=== PATIENT | female | born 1945 | race Two or more races ===

== ENCOUNTER 2016-07-08 16:38 | Inpatient (IN) | payer MEDICARE ==
[2016-07-08] MEDS ORDERED: methylPREDNISolone SOD SUCC* 125 MG 2 ML VIAL IV ONE (17:03)
[2016-07-08] MEDS ORDERED: Cefepime(*) 1 GM in NS 0.9% 50 ML* 50 ML IVPB ONE (17:09)
[2016-07-08] MEDS ORDERED: Vancomycin(*) 1,000 MG in NS 0.9% 250 ML* 250 ML IVPB ONE (17:09)
[2016-07-08] MEDS: Albuterol/Ipratropium NEB.SOL* Albuterol 2.5 MG/Ipratropium 0.5 MG 3 ML INH SCH ×2 (17:44→17:45)
--- NOTE | 2016-07-08 17:49 | RAD ---
INDICATION: Short of breath COMPARISON: [id number] TECHNIQUE: PA and lateral dual-energy views were obtained. FINDINGS: Bones/Soft Tissues: There are no acute bony findings. Cardiomediastinal: The cardiomediastinal silhouette is normal. Lungs: There is hyperinflation with mild chronic interstitial change. There are no focal infiltrates. There is improved aeration of the right lung base. Pleura: There are no pleural effusions. Other: None IMPRESSION: HYPERINFLATION WITH MILD CHRONIC INTERSTITIAL CHANGE. NO ACUTE FINDINGS.
[2016-07-08 18:00] LABS: Hematocrit 36 % (35-47); Hemoglobin 11.7 g/dl (12.0-16.0); Mean Corpuscular HGB Conc 33 g/dl (31-36); Mean Corpuscular Hemoglobin 29 pg (27-31); Mean Corpuscular Volume 89 fL (80-97); Mean Platelet Volume 7 um3 (7.4-10.4); Red Blood Count 4.02 10^6/ul (4.0-5.4); Red Cell Distribution Width 13 % (10.5-15); White Blood Count 12.2 10^3/ul (3.5-10.8)
[2016-07-08 18:01] LABS: Add Diff/Slide Review? Slide Review Added; Comments Flag Yes
[2016-07-08] MEDS ORDERED: methylPREDNISolone SOD SUCC* 125 MG 2 ML VIAL ONE (18:04)
[2016-07-08 18:17] LABS: Albumin 3.8 g/dL (3.2-5.2); BUN/Creatinine Ratio 22.5 (8-20); C Reactive Protein 4.96 mg/L (< 5.00); Calcium 9.3 mg/dL (8.6-10.3); EGFR Non-African American 81.6 (>60); Globulin 3.7 g/dL (2-4); Total Bilirubin 0.3 mg/dL (0.2-1.0); Total Protein 7.5 g/dL (6.4-8.9)
--- NOTE | 2016-07-08 18:53 | ED ---
Urvashi Castellanos Alok, scribed for Maurisio Smith MD on 07/08/16 at 1707 . Respiratory - HPI Summary HPI Summary: 70 y/o female with PMHx of COPD presents to the ED with c/o wheezing and SOB for the last week. Pt reports she had seen her PCP 3 days ago and was feeling better yesterday but then worse again today prompting her visit to the ED. Pt also notes a dry cough along with nausea and took two tylonel HUNTING AND FISHING GUIDE. Pt denies any fever, chills, and vomiting. PMHx also includes arthritis. Pt denies Hx of CHF. No other pertinent PMHx at this time. - History of Current Complaint Chief Complaint: EDShortnessOfBreath Stated Complaint: SOB Time Seen by Provider: 07/08/16 17:00 Hx Obtained From: Patient Onset/Duration: Gradual Onset, Lasting Days, Still Present Initial Severity: Moderate Current Severity: Moderate Pain Intensity: 2 Character: Wheezing, Cough (Nonproductive) Aggravating Factor(s): Nothing Alleviating Factor(s): Nothing Associated Signs and Symptoms: SOB, Wheezing - Allergy/Home Medications Allergies/Adverse Reactions: Allergies Allergy/AdvReac Type Severity Reaction Status Date / Time No Known Allergies Allergy Verified 06/23/16 15:07 PMH/Surg Hx/FS Hx/Imm Hx Endocrine/Hematology History: Reports: Hx Diabetes Cardiovascular History: Reports: Hx Hypertension Respiratory History: Reports: Hx Asthma, Hx Chronic Obstructive Pulmonary Disease (COPD) History: Reports: Hx Renal Disease - resolved 2009 Denies: Hx Kidney Stones Musculoskeletal History: Reports: Hx Rheumatoid Arthritis - Cancer History Hx Chemotherapy: No - methotrexate Hx Radiation Therapy: No - Surgical History Surgery Procedure, Year, and Place: right ear 8 yrs ago Infectious Disease History: No Infectious Disease History: Denies: Traveled Outside the [place] in Last 30 Days - Family History Known Family History: Negative: Other - Hx Breast cancer - Social History Occupation: Retired Lives: With Family - Alcohol Use: None Substance Use Type: Reports: None Hx Tobacco Use: No Smoking Status (MU): Never Smoked Tobacco Review of Systems Negative: Fever, Chills Positive: Shortness Of Breath, Cough - Dry, Other - Wheezing All Other Systems Reviewed And Are Negative: Yes Physical Exam Triage Information Reviewed: Yes Vital Signs On Initial Exam: Initial Vitals Temp Pulse Resp BP Pulse Ox 98.4 F 95 20 162/78 94 07/08/16 16:39 07/08/16 16:39 07/08/16 16:39 07/08/16 16:39 07/08/16 16:39 Vital Signs Reviewed: Yes Appearance: Positive: Well-Appearing - Obese female, comfortable in strecher, No Pain Distress, Well-Nourished Skin: Positive: Warm, Skin Color Reflects Adequate Perfusion, Dry Head/Face: Positive: Normal Head/Face Inspection Eyes: Positive: Normal, EOMI, COLE[place] ENT: Positive: Normal ENT inspection Neck: Positive: Supple, Nontender Respiratory/Lung Sounds: Positive: Decreased Breath Sounds, Wheezes - Diffuse Cardiovascular: Positive: Normal, RRR Abdomen Description: Positive: Nontender, Soft, Other: - Obese abd Bowel Sounds: Positive: Present Musculoskeletal: Positive: Strength/ROM Intact, Edema Left - LLE, Edema Right - RLE Neurological: Positive: Normal, Sensory/Motor Intact, Alert, Oriented to Person Place, Time Psychiatric: Positive: Normal, Affect/Mood Appropriate Diagnostics - Vital Signs Vital Signs Temp Pulse Resp BP Pulse Ox 07/08/16 16:39 98.4 F 95 20 162/78 94 - Laboratory Lab Results: Lab Results 07/08/16 07/08/16 07/08/16 Range/Units 17:46 17:46 17:46 WBC 12.2 H (3.5-10.8) 10^3/ul RBC 4.02 (4.0-5.4) 10^6/ul Hgb 11.7 L (12.0-16.0) g/dl Hct 36 (35-47) % MCV 89 (80-97) fL MCH 29 (27-31) pg MCHC 33 (31-36) g/dl RDW 13 (10.5-15) % Plt Count 375 (150-450) 10^3/ul MPV 7 L (7.4-10.4) um3 Neut % (Auto) 85.4 H (38-83) % Lymph % (Auto) 11.1 L (25-47) % [place] % (Auto) 3.0 (1-9) % Eos % (Auto) 0.1 (0-6) % Baso % (Auto) 0.4 (0-2) % Absolute Neuts (auto) 10.4 H (1.5-7.7) 10^3/ul Absolute Lymphs (auto) 1.3 (1.0-4.8) 10^3/ul Absolute Monos (auto) 0.4 (0-0.8) 10^3/ul Absolute Eos (auto) 0 (0-0.6) 10^3/ul Absolute Basos (auto) 0.1 (0-0.2) 10^3/ul Absolute Nucleated RBC 0.01 10^3/ul Nucleated RBC % 0.1 Sodium 132 L (133-145) mmol/L Potassium Pending Chloride 97 L (101-111) mmol/L Carbon Dioxide 23 (22-32) mmol/L Anion Gap Pending BUN 16 (6-24) mg/dL Creatinine 0.71 (0.51-0.95) mg/dL Est GFR ( Amer) 105.0 (>60) Est GFR (Non-Af Amer) 81.6 (>60) BUN/Creatinine Ratio 22.5 H (8-20) Glucose 195 H (70-100) mg/dL Lactic Acid 2.9 H* (0.5-2.0) mmol/L Calcium 9.3 (8.6-10.3) mg/dL Total Bilirubin 0.30 (0.2-1.0) mg/dL AST Pending ALT 27 (7-52) U/L Alkaline Phosphatase 50 (34-104) U/L Total Creatine Kinase 176 (10-223) U/L CK-MB (CK-2) 8.4 H (0.6-6.3) ng/mL Troponin I Pending C-Reactive Protein 4.96 (< 5.00) mg/L Total Protein 7.5 (6.4-8.9) g/dL Albumin 3.8 (3.2-5.2) g/dL Globulin 3.7 (2-4) g/dL Albumin/Globulin Ratio 1.0 (1-3) Influenza A (Rapid) (Negative) Influenza B (Rapid) (Negative) 07/08/16 Range/Units 18:13 WBC (3.5-10.8) 10^3/ul RBC (4.0-5.4) 10^6/ul Hgb (12.0-16.0) g/dl Hct (35-47) % MCV (80-97) fL MCH (27-31) pg MCHC (31-36) g/dl RDW (10.5-15) % Plt Count (150-450) 10^3/ul MPV (7.4-10.4) um3 Neut % (Auto) (38-83) % Lymph % (Auto) (25-47) % [place] % (Auto) (1-9) % Eos % (Auto) (0-6) % Baso % (Auto) (0-2) % Absolute Neuts (auto) (1.5-7.7) 10^3/ul Absolute Lymphs (auto) (1.0-4.8) 10^3/ul Absolute Monos (auto) (0-0.8) 10^3/ul Absolute Eos (auto) (0-0.6) 10^3/ul Absolute Basos (auto) (0-0.2) 10^3/ul Absolute Nucleated RBC 10^3/ul Nucleated RBC % Sodium (133-145) mmol/L Potassium Chloride (101-111) mmol/L Carbon Dioxide (22-32) mmol/L Anion Gap BUN (6-24) mg/dL Creatinine (0.51-0.95) mg/dL Est GFR ( Amer) (>60) Est GFR (Non-Af Amer) (>60) BUN/Creatinine Ratio (8-20) Glucose (70-100) mg/dL Lactic Acid (0.5-2.0) mmol/L Calcium (8.6-10.3) mg/dL Total Bilirubin (0.2-1.0) mg/dL AST ALT (7-52) U/L Alkaline Phosphatase (34-104) U/L Total Creatine Kinase (10-223) U/L CK-MB (CK-2) (0.6-6.3) ng/mL Troponin I C-Reactive Protein (< 5.00) mg/L Total Protein (6.4-8.9) g/dL Albumin (3.2-5.2) g/dL Globulin (2-4) g/dL Albumin/Globulin Ratio (1-3) Influenza A (Rapid) Negative (Negative) Influenza B (Rapid) Negative (Negative) Result Diagrams: 07/08/16 17:46 07/08/16 17:46 Lab Statement: Any lab studies that have been ordered have been reviewed, and results considered in the medical decision making process. - Radiology CXR Xray Interpretation: Positive (See Comments) - IMPRESSION: HYPERINFLATION WITH MILD CHRONIC INTERSTITIAL CHANGE. NO ACUTE FINDINGS. Radiology Interpretation Completed By: Radiologist - EKG 1702 Cardiac Rate: NL EKG Rhythm: Sinus Rhythm - 90 bpm EKG Interpretation: No ST elevation Disposition - Course Course Of Treatment: 70 y/o female with PMHx of COPD presents to the ED with c/ o wheezing and SOB for the last week. Pt reports she had seen her PCP 3 days ago and was feeling better yesterday but then worse again today prompting her visit to the ED. Pt also notes a dry cough along with nausea and took two tylonel HUNTING AND FISHING GUIDE. Pt denies any fever, chills, and vomiting. PMHx also includes arthritis. Pt denies Hx of CHF. No other pertinent PMHx at this time. Assessment/Plan: Blood work showed WBC 12.2 without bands, sodium 132 L, Glucose 195 H, Lactic Acid 2.9 H, Creatine Kinase 176. Was given Solumedrol and Cefepime for wheezing. Pt was dx 3 days ago with PNA lower left side. Pt was given Levoquin by previous doctor which did not alleviate symptoms; in fact symptoms have become worse since. Will admit pt. Will Dx with PNA not responding to outpatient therapy, COPD exacerbation, Increase troponin r/o NSTEMI. I discuss my physical exam, findings and test results with Dr. Nascimento from the hospitalist services and she agrees to admit patient to his services. Patient is hemodynamically stable alert and oriented x 3. - Differential Dx - Cardiopulmonary Differential Diagnoses - Cardiopulmonary: Bronchitis, CAD, CHF - Diagnoses Provider Diagnoses: PNA (pneumonia), increase troponin r/o HI, COPD exacerbation - Physician Notifications Discussed Care Of Patient With: Dr Nascimento (hospitalist) - agreed to admit pt Discharge - Discharge Plan Condition: Stable Disposition: ADMITTED TO [facility] Referrals: Jennifer Canales MD [Primary Care Provider] - The documentation as recorded by the Urvashi wright Alok accurately reflects the service I personally performed and the decisions made by me, Maurisio Smith MD.
[2016-07-08 18:59] LABS: Potassium 4.6 mmol/L (3.5-5.0)
[2016-07-08 19:22] LABS: Troponin I 0.04 ng/mL (<0.04)
[2016-07-08] MEDS ORDERED: Dextrose 50% Syringe 50 ML* 25 GM/50 ML SYRINGE IV PUSH PRN (19:55)
[2016-07-08] MEDS ORDERED: NS 0.9% 1000 ML* 2,000 ML IV ONE (19:56)
[2016-07-08] MEDS ORDERED: NS 0.9% 1000 ML* 1,000 ML IV SCH (20:00)
[2016-07-08] MEDS ORDERED: Furosemide IV* 10 MG/ML 10 ML VIAL (100 MG) IV ONE (21:23)
[2016-07-08] MEDS: Heparin VIAL(*) 5000 UNITS/ML VIAL (FIVE THOUSAND) SUBCUT SCH (21:51)
[2016-07-08 23:00] LABS: Urine Bilirubin Negative (Negative); Urine Glucose Negative (Negative); Urine Nitrite Negative (Negative)
[2016-07-09] MEDS: Albuterol/Ipratropium NEB.SOL* Albuterol 2.5 MG/Ipratropium 0.5 MG 3 ML INH SCH ×7 (00:06→23:39)
[2016-07-09] MEDS: NS 0.9% 1000 ML* 1,000 ML IV SCH ×4 (00:21→12:34)
--- NOTE | 2016-07-09 00:27 | HP ---
HISTORY AND PHYSICAL: DATE OF ADMISSION: 07/08/16 PRIMARY CARE PHYSICIAN: Dr. Canales. ATTENDING PHYSICIAN: Dr. Marcus Clemente *(dictation provided by Radha Juarez NP) CHIEF COMPLAINT: Shortness of breath and cough. HISTORY OF PRESENT ILLNESS: Ms. Ramirez is a 70-year-old female with a past medical history of COPD, hypertension, and diabetes who presents to the hospital stay with concern for worsening shortness of breath and cough. Ms. Ramirez states that she first started feeling unwell on Tuesday night. At that time , she felt wheezy and had a cough. She felt worse on Tuesday and Tuesday and had a temperature up to 101.4. On Tuesday, she saw Dr. Canales, who prescribed Levaquin and prednisone. The patient felt better the next day but on Tuesday , she again was feeling worse and by today, she was feeling quite terrible. She states it was very hard for her to sleep last night. She reports that she could not lie flat, which is new for her. She has had a frequent nonproductive cough and she feels audibly wheezy. She went to see Dr. Canales again and the recommendation was for her to come to the emergency room for evaluation. Ms. Ramirez states that she has a history of COPD, but was never smoker. She has been on the prednisone in the past for exacerbations, though never has been hospitalized. She does have some nausea, but she thinks that was secondary to prednisone and states that she usually gets nauseous with this medication. She reports that her metformin was held over the past week or so due to an elevated creatinine up to 1.88. She also reports that she has not been taking her torsemide while feeling unwell. In the emergency room, Ms. Ramirez had an elevated lactic acid of 2.9. She only has a WBC at 12.2. Her vitals show no tachycardia with blood pressure stable at 176/77. She is afebrile. Chest x-ray actually is read as clear today and does look improved from previous. However, she is significantly wheezy and coughing and requiring 2 L nasal cannula. PAST MEDICAL HISTORY: 1. COPD. 2. Hypertension. 3. Type 2 diabetes, noninsulin dependent. MEDICATIONS: 1. Tylenol p.r.n. 2. Advair Diskus 500-50 one inhaled twice daily. 3. Albuterol p.r.n. 4. Amlodipine 5 mg p.o. daily. 5. Ammonium lactate as needed. 6. Clobetasol as needed. 7. Clotrimazole as needed. 8. Fexofenadine as needed. 9. Flonase as needed. 10. Fluocinonide 0.05%. 11. Metformin held for the past week. 12. Hydrocodone with acetaminophen 5/325 mg 1 to 2 tabs as needed. 13. Ketoconazole 2% apply thin film twice daily. 14. Levaquin 500 mg daily, prescribed on 07/05/16. 15. Losartan 100 mg daily. 16. MiraLAX 8 ounces daily. 17. Nystatin as needed. 18. Ondansetron p.r.n. nausea. 19. Orencia 750 mg IV q. month. 20. Prednisone via taper. 21. Tizanidine 2 mg 1 to 2 caps as needed for spasms. 22. Torsemide 15 mg daily, held for the last 4 days. 23. Tramadol 50 mg 1 to 2 tabs p.r.n. 24. Voltaren 1% as needed. ALLERGIES: No known drug allergies. FAMILY HISTORY: The patient reports her mother related to old age and her dad while in a coma. She knows no further details. SOCIAL HISTORY: No report of tobacco, alcohol or drug use. The patient lives with her , who is the healthcare proxy. REVIEW OF SYSTEMS: A 14-point review of systems was completed with Ms. Ramirez and all those not mentioned above were negative. PHYSICAL EXAMINATION GENERAL: Ms. Ramirez is sitting in the bed. She is in no acute distress. She is calm and cooperative with my examination. VITAL SIGNS: Temperature 98.4, heart rate 92, respiratory rate 17, O2 saturation 100% on room air, blood pressure 176/77. HEENT: Extraocular movements are intact. LUNGS: Have significant wheezing bilaterally, mostly expiratory. There are no rhonchi or crackles. There is no accessory muscle use. HEART: S1, S2. No murmur, rub, or gallop are regular. ABDOMEN: Soft, nontender with bowel sounds positive x4. EXTREMITIES: No cyanosis, 2 + edema. SKIN: Intact. NEURO: She is alert and oriented x3. She moves all extremities equally. There is no facial asymmetry or focal weakness. LABORATORY DATA: WBC 12.2, hemoglobin 11.7, hematocrit 36, platelet count 375. Sodium 132, potassium 4.6, chloride 97, serum bicarbonate 23, BUN 16, creatinine 0.71, glucose 195, lactic acid 2.9, troponin 0.04. CRP 4.96. Flu swab is negative. Chest x-ray shows resolution of right-sided infiltrate. IMPRESSION: Ms. Ramirez is a 70-year-old female with a past medical history of chronic obstructive pulmonary disease, hypertension, and diabetes who presents today to the hospital with worsening shortness of breath and cough despite treatment for pneumonia. Our plans are for inpatient admission as I expect her length of stay to be greater than 2 days for the followin. Chronic obstructive pulmonary disease exacerbation/pneumonia. The patient has ongoing shortness of breath and cough despite treatment outpatient with prednisone and Levaquin. Today, on examination, the patient is significantly wheezy, but does not have any rhonchi or crackles. Her chest x-ray does not show any clear concern for pneumonia. I suspect that pneumonia may have driven a chronic obstructive pulmonary disease exacerbation. Regardless, I think she deserves of course antibiotic coverage with ceftriaxone and azithromycin. She will have duo nebulizers q.4 hours while awake and as needed. She will have oxygen therapy per protocol. She will have Solu-Medrol 60 mg IV b.i.d. I also note that the patient has a normal CRP, normal flu swab and only a mild elevation in white blood cell count, all of which speaks against pneumonia and makes likelihood for chronic obstructive pulmonary disease exacerbation more likely. 2. Lactic acidosis. I suspect this is driven more by her respiratory status then sepsis. She has 2+ pitting edema and a systolic blood pressure 190 after receiving a bolus of approximately 500ml NS in the ED. Pt is on torsemide at home but has not been taking it recently. Plan for one time dose of lasix now and to re-evaluate closely. Repeat lactic acid. 3. ? Heart Failure. Patient has severe pitting edema and is on torsemide at home. Pt's last echo showed diastolic dysfunction only, plan to re-eval cardiac function with echo in AM. Check BNP. 4. Elevated troponins. I suspect this is secondary to demand ischemia and is very minimally elevated with no evidence of chest pain. Plan to repeat x1. 5. Type 2 diabetes. The patient has been holding metformin due to an elevated creatinine. Her creatinine is now normal. I plan to continue to hold metformin , but she will have blood glucoses q.a.c. with lispro sliding scale. 6. Hypertension. Plan to continue losartan as the patient's blood pressure is elevated in the emergency room to the 170s. Continue to hold torsemide as I think the patient is dehydrated. 7. DVT prophylaxis. With heparin subcu. 8. Disposition to medical floor. 9. Code status is full code. TIME SPENT: Approximately 75 minutes were spent on the admission of this patient, more than half the time spent with the patient at the bedside reviewing the events leading up to this hospitalization, performing the physical examination, and reviewing the plan of care. RADHA JUAREZ NP CC: Dr. Canales * [id number]/CPS #: [id number] RIANNA
[2016-07-09 03:36] LABS: Hematocrit 35 % (35-47); Hemoglobin 11.4 g/dl (12.0-16.0); Mean Corpuscular HGB Conc 33 g/dl (31-36); Mean Corpuscular Hemoglobin 29 pg (27-31); Mean Corpuscular Volume 88 fL (80-97); Mean Platelet Volume 7 um3 (7.4-10.4); Red Blood Count 3.98 10^6/ul (4.0-5.4); Red Cell Distribution Width 13 % (10.5-15); White Blood Count 12.2 10^3/ul (3.5-10.8)
[2016-07-09 03:37] LABS: Add Diff/Slide Review? Slide Review Added; Comments Flag Yes
[2016-07-09 03:47] LABS: BUN/Creatinine Ratio 19.7 (8-20); Calcium 8.3 mg/dL (8.6-10.3); EGFR Non-African American 81.6 (>60); Potassium 3.7 mmol/L (3.5-5.0)
[2016-07-09] MEDS: Heparin VIAL(*) 5000 UNITS/ML VIAL (FIVE THOUSAND) SUBCUT SCH ×3 (05:18→22:40)
[2016-07-09] MEDS: methylPREDNISolone SOD SUCC* 125 MG 2 ML VIAL IV SCH ×2 (05:18→17:14)
[2016-07-09 07:59] LABS: Troponin I 0.04 ng/mL (<0.04)
[2016-07-09] MEDS: traMADol TAB* 50 MG PO SCH (08:56)
[2016-07-09] MEDS: Losartan TAB* 25 MG PO SCH (08:57)
[2016-07-09] MEDS: Polyethylene Glycol 3350* 17 GM PACKET PO SCH (08:58)
[2016-07-09] MEDS: Insulin LISPRO* 1 UNITS UNIT SUBCUT SCH ×3 (08:58→17:13)
[2016-07-09] MEDS ORDERED: amLODIPine TAB* 5 MG PO SCH (09:00)
[2016-07-09] MEDS: Azithromycin IV(*) 500 MG in NS 0.9% 250 ML* 250 ML IVPB SCH (09:00)
[2016-07-09] MEDS: Mometasone/Formoter 200/5 MDI INH SCH (09:15)
[2016-07-09] MEDS: cefTRIAXone VIAL(*) 1,000 MG in NS 0.9% 50 ML* 50 ML IVPB SCH (11:01)
[2016-07-09] MEDS ORDERED: Furosemide IV* 10 MG/ML VIAL (40 MG) IV ONE (12:45)
--- NOTE | 2016-07-09 13:21 | PN ---
Subjective Date of Service: 07/09/16 Interval History: pt still c/o "wheezing", but better since admission Objective Active Medications: Hydrocodone Bitart/Acetaminophen ([place] 5-325 Tab*) 1 tab PO Q4H PRN PRN Reason: PAIN - ARTHRITIS Albuterol/Ipratropium (Duoneb Neb.Isabel*) 1 neb INH [id number] AWAKE [facility] Last Admin: 07/09/16 12:41 Dose: 1 neb Albuterol/Ipratropium (Duoneb Neb.Isabel*) 1 neb INH Q4H PRN PRN Reason: SOB/WHEEZING Amlodipine Besylate (Norvasc Tab*) 5 mg PO DAILY [facility] Last Admin: 07/09/16 08:57 Dose: 5 mg Dextrose (D50w Syringe 50 Ml*) 12.5 gm IV PUSH .FOR FS < 60 - SS PRN PRN Reason: FS < 60 Heparin Sodium (Porcine) (Heparin Vial(*)) 5,000 units SUBCUT Q8HR [facility] Last Admin: 07/09/16 12:35 Dose: 5,000 units Ceftriaxone Sodium 1,000 mg/ (Sodium Chloride) 50 mls @ 200 mls/hr IVPB Q24H [facility] Last Admin: 07/09/16 11:01 Dose: 200 mls/hr Azithromycin 500 mg/ Sodium (Chloride) 250 mls @ 250 mls/hr IVPB Q24H [facility] Last Admin: 07/09/16 09:00 Dose: 250 mls/hr Sodium Chloride (Ns 0.9% 1000 Ml*) 1,000 mls @ 0 mls/hr IV WIDE OPEN [place] PRN Reason: Wide Open Stop: 07/10/16 00:16 Last Admin: 07/09/16 01:26 Dose: 1,000 mls/hr Insulin Human Lispro (Humalog*) 0 units SUBCUT AC [facility] PRN Reason: Protocol Last Admin: 07/09/16 12:34 Dose: 6 units Losartan Potassium (Cozaar Tab*) 100 mg PO DAILY [facility] Last Admin: 07/09/16 08:57 Dose: 100 mg Methylprednisolone Sodium Succinate (Solu-Medrol*) 60 mg IV Q12H [facility] Last Admin: 07/09/16 05:18 Dose: 60 mg Mometasone Furoate/Formoterol Fumar (Dulera 200/5 Mdi*) 2 puff INH DAILY [facility] Last Admin: 07/09/16 09:15 Dose: 2 puff Polyethylene Glycol/Electrolytes (Miralax*) 17 gm PO DAILY [facility] Last Admin: 07/09/16 08:58 Dose: Not Given Torsemide (Demadex*) 20 mg PO DAILY [facility] Tramadol HCl (Ultram*) 50 mg PO DAILY [facility] Last Admin: 07/09/16 08:56 Dose: 50 mg Vital Signs 07/08/16 07/08/16 07/08/16 20:00 20:30 20:34 Temperature Pulse Rate 90 98 98 Respiratory 20 20 18 Rate Blood Pressure 176/76 185/84 193/101 (mmHg) O2 Sat by Pulse 98 98 99 Oximetry 07/08/16 07/08/16 07/08/16 20:41 21:45 22:00 Temperature 97.7 F Pulse Rate 96 96 Respiratory 18 20 20 Rate Blood Pressure 175/75 182/80 (mmHg) O2 Sat by Pulse 98 100 Oximetry 07/08/16 07/08/16 07/09/16 23:27 23:31 03:29 Temperature 98.4 F 98.1 F 98.3 F Pulse Rate 92 92 90 Respiratory 16 16 16 Rate Blood Pressure 179/74 161/72 (mmHg) O2 Sat by Pulse 100 99 99 Oximetry 07/09/16 07/09/16 07/09/16 04:31 07:35 08:56 Temperature 97.6 F Pulse Rate 85 99 Respiratory 18 18 22 Rate Blood Pressure 150/79 (mmHg) O2 Sat by Pulse 96 97 Oximetry 07/09/16 07/09/16 09:17 12:44 Temperature Pulse Rate 95 105 Respiratory 15 18 Rate Blood Pressure (mmHg) O2 Sat by Pulse 97 99 Oximetry Oxygen Devices in Use Now: Nasal Cannula - at 2 l Appearance: 70 yo f in nAD, AAOx3 Eyes: No Scleral Icterus, PERRLA Ears/Nose/Mouth/Throat: NL Teeth, Lips, Gums, Mucous Membranes Moist Neck: NL Appearance and Movements; NL JVP, Trachea Midline Respiratory: Symmetrical Chest Expansion and Respiratory Effort, - - diffuse b/ l lower and mid lung wheezing Cardiovascular: NL Sounds; No Murmurs; No JVD, RRR Abdominal: NL Sounds; No Tenderness; No Distention, No Hepatosplenomegaly Lymphatic: No Cervical Adenopathy Extremities: No Clubbing, Cyanosis, - - +2 b/l pedeal edema Skin: No Rash or Ulcers, No Nodules or Sclerosis Neurological: Alert and Oriented x 3, NL Muscle Strength and Tone Result Diagrams: 07/09/16 03:13 07/09/16 03:13 Additional Lab and Data: Lab Results 07/08/16 07/08/16 07/08/16 Range/Units 17:46 17:46 17:46 WBC 12.2 H (3.5-10.8) 10^3/ul RBC 4.02 (4.0-5.4) 10^6/ul Hgb 11.7 L (12.0-16.0) g/dl Hct 36 (35-47) % MCV 89 (80-97) fL MCH 29 (27-31) pg MCHC 33 (31-36) g/dl RDW 13 (10.5-15) % Plt Count 375 (150-450) 10^3/ul MPV 7 L (7.4-10.4) um3 Neut % (Auto) 85.4 H (38-83) % Lymph % (Auto) 11.1 L (25-47) % [place] % (Auto) 3.0 (1-9) % Eos % (Auto) 0.1 (0-6) % Baso % (Auto) 0.4 (0-2) % Absolute Neuts (auto) 10.4 H (1.5-7.7) 10^3/ul Absolute Lymphs (auto) 1.3 (1.0-4.8) 10^3/ul Absolute Monos (auto) 0.4 (0-0.8) 10^3/ul Absolute Eos (auto) 0 (0-0.6) 10^3/ul Absolute Basos (auto) 0.1 (0-0.2) 10^3/ul Absolute Nucleated RBC 0.01 10^3/ul Nucleated RBC % 0.1 Sodium 132 L (133-145) mmol/L Potassium Pending Chloride 97 L (101-111) mmol/L Carbon Dioxide 23 (22-32) mmol/L Anion Gap Pending BUN 16 (6-24) mg/dL Creatinine 0.71 (0.51-0.95) mg/dL Est GFR ( Amer) 105.0 (>60) Est GFR (Non-Af Amer) 81.6 (>60) BUN/Creatinine Ratio 22.5 H (8-20) Glucose 195 H (70-100) mg/dL Lactic Acid 2.9 H* (0.5-2.0) mmol/L Calcium 9.3 (8.6-10.3) mg/dL Total Bilirubin 0.30 (0.2-1.0) mg/dL AST Pending ALT 27 (7-52) U/L Alkaline Phosphatase 50 (34-104) U/L Total Creatine Kinase 176 (10-223) U/L CK-MB (CK-2) 8.4 H (0.6-6.3) ng/mL Troponin I Pending C-Reactive Protein 4.96 (< 5.00) mg/L Total Protein 7.5 (6.4-8.9) g/dL Albumin 3.8 (3.2-5.2) g/dL Globulin 3.7 (2-4) g/dL Albumin/Globulin Ratio 1.0 (1-3) Influenza A (Rapid) (Negative) Influenza B (Rapid) (Negative) 07/08/16 Range/Units 18:13 WBC (3.5-10.8) 10^3/ul RBC (4.0-5.4) 10^6/ul Hgb (12.0-16.0) g/dl Hct (35-47) % MCV (80-97) fL MCH (27-31) pg MCHC (31-36) g/dl RDW (10.5-15) % Plt Count (150-450) 10^3/ul MPV (7.4-10.4) um3 Neut % (Auto) (38-83) % Lymph % (Auto) (25-47) % [place] % (Auto) (1-9) % Eos % (Auto) (0-6) % Baso % (Auto) (0-2) % Absolute Neuts (auto) (1.5-7.7) 10^3/ul Absolute Lymphs (auto) (1.0-4.8) 10^3/ul Absolute Monos (auto) (0-0.8) 10^3/ul Absolute Eos (auto) (0-0.6) 10^3/ul Absolute Basos (auto) (0-0.2) 10^3/ul Absolute Nucleated RBC 10^3/ul Nucleated RBC % Sodium (133-145) mmol/L Potassium Chloride (101-111) mmol/L Carbon Dioxide (22-32) mmol/L Anion Gap BUN (6-24) mg/dL Creatinine (0.51-0.95) mg/dL Est GFR ( Amer) (>60) Est GFR (Non-Af Amer) (>60) BUN/Creatinine Ratio (8-20) Glucose (70-100) mg/dL Lactic Acid (0.5-2.0) mmol/L Calcium (8.6-10.3) mg/dL Total Bilirubin (0.2-1.0) mg/dL AST ALT (7-52) U/L Alkaline Phosphatase (34-104) U/L Total Creatine Kinase (10-223) U/L CK-MB (CK-2) (0.6-6.3) ng/mL Troponin I C-Reactive Protein (< 5.00) mg/L Total Protein (6.4-8.9) g/dL Albumin (3.2-5.2) g/dL Globulin (2-4) g/dL Albumin/Globulin Ratio (1-3) Influenza A (Rapid) Negative (Negative) Influenza B (Rapid) Negative (Negative) Microbiology and Other Data: Microbiology 07/08/16 22:47 Legionella Urinary Antigen - Final Urine Negative Legionella Streptococcus pneumoniae Ag Screen - Final Negative S. pneumo Antigen Assess/Plan/Problems-Billing Assessment: 70 yo f with h/o COPD, chronic leg edema (on Torsemide at home), DM2 , presents with COPD exacerbation - Patient Problems (1) COPD exacerbation Comment: -cont solu Medrol, Dulera, scheduled nebs. -still significantly wheezing. -cont Ceftriaxone/Azithro (2) Elevated lactic acid level Comment: may have been related to metformin use as outpatient and hypoxemia. (3) DM type 2 (diabetes mellitus, type 2) Comment: metformin held cont Lispro SSI (4) Elevated troponin Comment: at 0.05, no CP spuspect demand ischemia, Echo pending (5) Leg edema Comment: no clear evidence of CHF, suspect chronic venous stasis with worsening (her Torsemide was held as outpatient prior to admission) BNP 77 at admission Echo pending will restart torsemide in aM and tx with another dose of IV Lasix today-suspect fluid overload (stopped IVF) (6) HTN (hypertension) Comment: Uncontrolled. cont losartan Increase Norvasc (7) DVT prophylaxis Comment: heparin sc Status and Disposition: inpatient
--- NOTE | 2016-07-09 14:50 | ECHO ---
Patient: RAMÍREZ PEREA [facility] Rec#: [id number] : 1945 Date: 07/09/2016 Age: 70y Height: 157 cm / 61.8 in Weight: 98 kg / 216.0 lbs Sex: F BSA: 1.97 Room#: [facility] Admit Date#: 07/08/2016 Type: Inpatient Referring: Radha Juarez NP Reading: Stepan Castaneda MD Roof Painter: Reji Chen RDCS CC: Jennifer Canales MD Transthoracic Echocardiogram Indication: SOB BP: 161/72 HR: 89 Rhythm: NSR Findings History: COPD,HTN,DM,SOB Technical Comments: The study is technically difficult. Completed 1045 The study is technically limited due to patient body habitus. The study is technically limited due to the patient's history of COPD. The study was technically limited due to the patient's inability to lay in the left lateral decubitus position. Left Ventricle: The left ventricular chamber size is normal. Global left ventricular wall motion and contractility are within normal limits. The left ventricle appears hyperdynamic. The estimated ejection fraction is greater than 65%. Abnormal left ventricular diastolic filling is observed, consistent with impaired relaxation. Left Atrium: The left atrium is slightly dilated. Right Ventricle: The right ventricular cavity size is normal. The right ventricular global systolic function is normal. Right Atrium: The right atrial cavity size is normal. Aortic Valve: The aortic valve structure is not well visualized. The aortic valve leaflets are mildly thickened. Systolic excursion of the aortic valve cusps is reduced. There is no evidence of aortic regurgitation. Mitral Valve: There is mitral annular calcification. The mitral valve leaflets are mildly thickened. There is a trace of mitral regurgitation. There is no evidence of mitral stenosis. Tricuspid Valve: There is no evidence of tricuspid valve regurgitation. There is no tricuspid stenosis. Pulmonic Valve: The pulmonic valve structure is not well visualized. Pericardium: A pericardial fat pad is visualized. Aorta: There is no dilatation of the ascending aorta. There is no dilatation of the aortic arch. There is no dilation of the aortic root. Pulmonary Artery: The main pulmonary artery is not well visualized. Venous: The inferior vena cava appears normal in size. There is a greater than 50% respiratory change in the inferior vena cava dimension. Conclusions The study is technically limited due to patient body habitus. The left ventricle appears hyperdynamic. The estimated ejection fraction is greater than 65%. Abnormal left ventricular diastolic filling is observed, consistent with impaired relaxation. The left atrium is slightly dilated. There is a trace of mitral regurgitation. Similar to except that mild LVH and Mild Aortic stenosis was noted last time. The aortic leaflets seem mildly restricted; peak velocity may have been underestimated at 1.9 mps this time c/t 2.3 mps last time. Probable mild . Measurements Name Value Normal Range RVIDd (AP) 2D 1.5 cm (0.9 - 2.6) RVDdMajor (2D) 2.2 cm (2.2 - 4.4) RAd ISD 4CH 4.7 cm (3.4 - 4.9) RA (A4C)W 3.1 cm (2.9 - 4.6) IVSd (2D) 0.8 cm (0.6 - 1) LVPWd (2D) 0.9 cm (0.6 - 1) LVIDd (2D) 4.4 cm (3.6 - 5.4) LVIDs (2D) 3.2 cm - LV FS (2D) 26 % (25 - 45) Aortic Annulus 1.9 cm (1.4 - 2.6) Ao root diameter (2D) 2.8 cm (2.1 - 3.5) Ascending Ao 3.6 cm (2.1 - 3.4) Aortic arch 2.4 cm (1.8 - 3.4) LA dimension (AP) 2D 4.2 cm (2.3 - 3.8) LAd ISD 4CH 5.1 cm (2.9 - 5.3) LA ISD 4CH W 2.8 cm (2.5 - 4.5) Name Value Normal Range LA ESV SP 4CH (A/L) 31 ml - LA ESV SP 4CH (MOD) 28 ml - Name Value Normal Range MV E-wave Vmax 0.92 m/sec - MV deceleration time 219 msec - MV A-wave Vmax 1.4 m/sec - MV E:A ratio 0.66 ratio - LV septal e' Vmax 0.07 m/sec - LV lateral e' Vmax 0.07 m/sec - LV E:e' septal ratio 13.1 ratio - LV E:e' lateral ratio 13.1 ratio - Name Value Normal Range AV VTI 22.4 cm - LVOT diameter 1.59 cm - LVOT Vmax 1.36 m/sec - LVOT VTI 26.02 cm - LVOT peak gradient 7.45 mmHg - LVOT mean gradient 4.8 mmHg - Name Value Normal Range IVC diameter 1.18 cm -
[2016-07-09] MEDS: HYDROcodone/ACETAMIN 5-325 MG* 1 TAB PO PRN (22:40)
[2016-07-10] MEDS: Albuterol/Ipratropium NEB.SOL* Albuterol 2.5 MG/Ipratropium 0.5 MG 3 ML INH SCH ×5 (03:01→20:18)
[2016-07-10] MEDS: methylPREDNISolone SOD SUCC* 125 MG 2 ML VIAL IV SCH ×2 (05:42→17:38)
[2016-07-10] MEDS: Heparin VIAL(*) 5000 UNITS/ML VIAL (FIVE THOUSAND) SUBCUT SCH ×3 (05:43→20:54)
[2016-07-10 06:08] LABS: Hematocrit 33 % (35-47); Hemoglobin 11.1 g/dl (12.0-16.0); Mean Corpuscular HGB Conc 34 g/dl (31-36); Mean Corpuscular Hemoglobin 30 pg (27-31); Mean Corpuscular Volume 88 fL (80-97); Mean Platelet Volume 7 um3 (7.4-10.4); Red Blood Count 3.74 10^6/ul (4.0-5.4); Red Cell Distribution Width 13 % (10.5-15); White Blood Count 13.4 10^3/ul (3.5-10.8)
[2016-07-10 06:09] LABS: Add Diff/Slide Review? Slide Review Added; Comments Flag Yes
[2016-07-10 06:26] LABS: Calcium 8.7 mg/dL (8.6-10.3); EGFR African American 108.5 (>60); EGFR Non-African American 84.4 (>60); Potassium 3.4 mmol/L (3.5-5.0)
[2016-07-10] MEDS: Mometasone/Formoter 200/5 MDI INH SCH ×3 (07:48→21:00)
[2016-07-10] MEDS: traMADol TAB* 50 MG PO SCH (08:34)
[2016-07-10] MEDS: amLODIPine TAB* 5 MG PO SCH (08:36)
[2016-07-10] MEDS: Losartan TAB* 25 MG PO SCH (08:36)
[2016-07-10] MEDS: Torsemide TAB* 20 MG PO SCH (08:36)
[2016-07-10] MEDS: Polyethylene Glycol 3350* 17 GM PACKET PO SCH (08:37)
[2016-07-10] MEDS: Insulin LISPRO* 1 UNITS UNIT SUBCUT SCH ×4 (08:38→17:37)
[2016-07-10] MEDS: cefTRIAXone VIAL(*) 1,000 MG in NS 0.9% 50 ML* 50 ML IVPB SCH (08:39)
[2016-07-10] MEDS ORDERED: Diltiazem CD CAP* 120 MG PO ONE (09:05)
[2016-07-10] MEDS: Azithromycin IV(*) 500 MG in NS 0.9% 250 ML* 250 ML IVPB SCH (09:18)
--- NOTE | 2016-07-10 16:17 | PN ---
Subjective Date of Service: 07/10/16 Interval History: HOSPITALIST PROGRESS NOTE Patient seen and examined at bedside. She feels a little better today, but still has moist cough and wheezing. [place] palpitations while walking to the bathroom. Family History: Unchanged from Admission Social History: Unchanged from Admission Past Medical History: Unchanged from Admission Objective Active Medications: Hydrocodone Bitart/Acetaminophen ([place] 5-325 Tab*) 1 tab PO Q4H PRN PRN Reason: PAIN - ARTHRITIS Last Admin: 07/09/16 22:40 Dose: 1 tab Albuterol/Ipratropium (Duoneb Neb.Isabel*) 1 neb INH Q4H PRN PRN Reason: SOB/WHEEZING Albuterol/Ipratropium (Duoneb Neb.Isabel*) 1 neb INH [id number] AWAKE [facility] Last Admin: 07/10/16 13:28 Dose: 1 neb Amlodipine Besylate (Norvasc Tab*) 10 mg PO DAILY [facility] Last Admin: 07/10/16 08:36 Dose: 10 mg Dextrose (D50w Syringe 50 Ml*) 12.5 gm IV PUSH .FOR FS < 60 - SS PRN PRN Reason: FS < 60 Diltiazem HCl (Cardizem Cd Cap*) 120 mg PO DAILY [facility] Heparin Sodium (Porcine) (Heparin Vial(*)) 5,000 units SUBCUT Q8HR [facility] Last Admin: 07/10/16 14:40 Dose: 5,000 units Ceftriaxone Sodium 1,000 mg/ (Sodium Chloride) 50 mls @ 200 mls/hr IVPB Q24H [facility] Last Admin: 07/10/16 08:39 Dose: 200 mls/hr Azithromycin 500 mg/ Sodium (Chloride) 250 mls @ 250 mls/hr IVPB Q24H [facility] Last Admin: 07/10/16 09:18 Dose: 250 mls/hr Insulin Human Lispro (Humalog*) 0 units SUBCUT AC [facility] PRN Reason: Protocol Last Admin: 07/10/16 12:37 Dose: 4 units Losartan Potassium (Cozaar Tab*) 100 mg PO DAILY [facility] Last Admin: 07/10/16 08:36 Dose: 100 mg Methylprednisolone Sodium Succinate (Solu-Medrol*) 60 mg IV Q12H [facility] Last Admin: 07/10/16 05:42 Dose: 60 mg Mometasone Furoate/Formoterol Fumar (Dulera 200/5 Mdi*) 2 puff INH DAILY [facility] Last Admin: 07/10/16 07:48 Dose: 2 puff Polyethylene Glycol/Electrolytes (Miralax*) 17 gm PO DAILY [facility] Last Admin: 07/10/16 08:37 Dose: Not Given Torsemide (Demadex*) 20 mg PO DAILY [facility] Last Admin: 07/10/16 08:36 Dose: 20 mg Tramadol HCl (Ultram*) 50 mg PO DAILY [facility] Last Admin: 07/10/16 08:34 Dose: 50 mg Vital Signs 07/10/16 07/10/16 13:29 15:50 Temperature 98.0 F Pulse Rate 96 104 Respiratory 16 22 Rate Blood Pressure 136/57 (mmHg) O2 Sat by Pulse 99 95 Oximetry Oxygen Devices in Use Now: Nasal Cannula - at 2 l Appearance: Pleasant lady sitting up in bed in NAD. Eyes: No Scleral Icterus Ears/Nose/Mouth/Throat: Mucous Membranes Moist Neck: Trachea Midline Respiratory: Symmetrical Chest Expansion and Respiratory Effort, - - BS+ bilaterally with scattered wheezes Cardiovascular: RRR - Normal S1 and S2 Abdominal: NL Sounds; No Tenderness; No Distention Neurological: Alert and Oriented x 3, NL Muscle Strength and Tone Lines/Tubes/Other Access: Clean, Dry and Intact Peripheral IV Nutrition: Taking PO's Result Diagrams: 07/10/16 05:51 07/10/16 05:45 Assess/Plan/Problems-Billing Assessment: Mrs. Ramirez is a 70 yo F with PMH of COPD, chronic leg edema (on Torsemide at home ), DM2, RA on Orencia, who presented to ED with c/o cough and dyspnea, found to have COPD exacerbation secondary to pneumonia. - Patient Problems (1) SVT (supraventricular tachycardia) Comment: - Patient had an episode of SVT earlier today while walking to the bathroom. - Responded to Cardizem PO - continue to monitor. (2) COPD exacerbation Comment: - Secondary to pneumonia on an immunossupressed patient. Failed outpatient therapy with Levaquin. - Continue steroids and bronchodilators. - Continue Ceftriaxone/Azithromycin. (3) DM type 2 (diabetes mellitus, type 2) Comment: - Metformin held. - Continue Lispro SSI. (4) Elevated lactic acid level Comment: - Likely associated with metformin. (5) Elevated troponin Comment: - Minimally elevate troponin in the setting of infection. Suspect demand ischemia. - Echo showed EF>65% with no wall motion abnormalities. (6) HTN (hypertension) Comment: - Better controlled - Continue Losartan and Amlodipine. (7) Hypokalemia Comment: - Replete. (8) Rheumatoid arthritis Comment: - Recently switched from Humira to Orencia. She feels she's getting more infections now. got sick first and she thinks she got it from him. (9) DVT prophylaxis Comment: - SQ heparin. (10) Full code status Status and Disposition: Inpatient.
[2016-07-10] MEDS: Potassium Chlor TAB* 20 MEQ TAB.ER PO SCH ×2 (17:37→20:51)
[2016-07-11] MEDS: methylPREDNISolone SOD SUCC* 125 MG 2 ML VIAL IV SCH ×5 (05:23→20:18)
[2016-07-11] MEDS: Heparin VIAL(*) 5000 UNITS/ML VIAL (FIVE THOUSAND) SUBCUT SCH ×3 (05:24→21:32)
[2016-07-11 06:32] LABS: Hematocrit 36 % (35-47); Hemoglobin 11.6 g/dl (12.0-16.0); Mean Corpuscular HGB Conc 33 g/dl (31-36); Mean Corpuscular Hemoglobin 29 pg (27-31); Mean Corpuscular Volume 89 fL (80-97); Mean Platelet Volume 7 um3 (7.4-10.4); Red Blood Count 3.99 10^6/ul (4.0-5.4); Red Cell Distribution Width 13 % (10.5-15); White Blood Count 14.5 10^3/ul (3.5-10.8)
[2016-07-11 06:38] LABS: Add Diff/Slide Review? Slide Review Added; Comments Flag Yes
[2016-07-11 07:13] LABS: BUN/Creatinine Ratio 39.1 (8-20); EGFR African American 118.3 (>60); Magnesium 1.7 mg/dL (1.9-2.7)
[2016-07-11 07:35] LABS: Potassium 4.6 mmol/L (3.5-5.0)
[2016-07-11] MEDS: Mometasone/Formoter 200/5 MDI INH SCH ×2 (08:11→21:14)
[2016-07-11] MEDS: Torsemide TAB* 20 MG PO SCH (10:49)
[2016-07-11] MEDS: Losartan TAB* 25 MG PO SCH (10:49)
[2016-07-11] MEDS: traMADol TAB* 50 MG PO SCH (10:49)
[2016-07-11] MEDS: Diltiazem CD CAP* 120 MG PO SCH (10:49)
[2016-07-11] MEDS: Insulin LISPRO* 1 UNITS UNIT SUBCUT SCH ×6 (10:50→18:16)
[2016-07-11] MEDS: amLODIPine TAB* 5 MG PO SCH (10:50)
[2016-07-11] MEDS: Potassium Chlor TAB* 20 MEQ TAB.ER PO SCH (10:50)
[2016-07-11] MEDS: Azithromycin IV(*) 500 MG in NS 0.9% 250 ML* 250 ML IVPB SCH (10:52)
[2016-07-11] MEDS: Polyethylene Glycol 3350* 17 GM PACKET PO SCH (10:53)
[2016-07-11] MEDS: cefTRIAXone VIAL(*) 1,000 MG in NS 0.9% 50 ML* 50 ML IVPB SCH ×2 (14:02→14:07)
--- NOTE | 2016-07-11 15:10 | PN ---
Subjective Date of Service: 07/11/16 Interval History: HOSPITALIST PROGRESS NOTE Patient seen and examined at bedside. She feels a little better today. Still has dyspnea and wheezing, but less than yesterday. Able to ambulate to bathroom. Productive cough with whitish sputum. Family History: Unchanged from Admission Social History: Unchanged from Admission Past Medical History: Unchanged from Admission Objective Active Medications: Hydrocodone Bitart/Acetaminophen ([place] 5-325 Tab*) 1 tab PO Q4H PRN PRN Reason: PAIN - ARTHRITIS Last Admin: 07/09/16 22:40 Dose: 1 tab Albuterol/Ipratropium (Duoneb Neb.Isabel*) 1 neb INH Q4H PRN PRN Reason: SOB/WHEEZING Amlodipine Besylate (Norvasc Tab*) 10 mg PO DAILY [facility] Last Admin: 07/11/16 10:50 Dose: 10 mg Dextrose (D50w Syringe 50 Ml*) 12.5 gm IV PUSH .FOR FS < 60 - SS PRN PRN Reason: FS < 60 Diltiazem HCl (Cardizem Cd Cap*) 120 mg PO DAILY [facility] Last Admin: 07/11/16 10:49 Dose: 120 mg Heparin Sodium (Porcine) (Heparin Vial(*)) 5,000 units SUBCUT Q8HR [facility] Last Admin: 07/11/16 14:02 Dose: 5,000 units Azithromycin 500 mg/ Sodium (Chloride) 250 mls @ 250 mls/hr IVPB Q24H [facility] Last Admin: 07/11/16 10:52 Dose: 250 mls/hr Ceftriaxone Sodium 1,000 mg/ (Sodium Chloride) 50 mls @ 200 mls/hr IVPB Q24HR@ 1400 [facility] Last Admin: 07/11/16 14:02 Dose: 200 mls/hr Insulin Human Lispro (Humalog*) 0 units SUBCUT AC [facility] PRN Reason: Protocol Last Admin: 07/11/16 14:03 Dose: 9 units Insulin Human Lispro (Humalog*) 0 units SUBCUT AC [facility] PRN Reason: Protocol Last Admin: 07/11/16 14:04 Dose: 5 units Losartan Potassium (Cozaar Tab*) 100 mg PO DAILY [facility] Last Admin: 07/11/16 10:49 Dose: 100 mg Methylprednisolone Sodium Succinate (Solu-Medrol*) 60 mg IV Q12H [facility] Last Admin: 07/11/16 05:23 Dose: 60 mg Mometasone Furoate/Formoterol Fumar (Dulera 200/5 Mdi*) 2 puff INH BID [facility] Last Admin: 07/11/16 08:11 Dose: 2 puff Polyethylene Glycol/Electrolytes (Miralax*) 17 gm PO DAILY [facility] Last Admin: 07/11/16 10:53 Dose: Not Given Potassium Chloride (Klor Con Er Tab*) 20 meq PO DAILY [facility] Last Admin: 07/11/16 10:50 Dose: 20 meq Torsemide (Demadex*) 20 mg PO DAILY [facility] Last Admin: 07/11/16 10:49 Dose: 20 mg Tramadol HCl (Ultram*) 50 mg PO DAILY [facility] Last Admin: 07/11/16 10:49 Dose: 50 mg Vital Signs 07/10/16 07/11/16 07/11/16 23:27 04:24 08:00 Temperature 98.0 F 97.3 F Pulse Rate 90 84 Respiratory 16 20 14 Rate Blood Pressure 159/69 149/75 (mmHg) O2 Sat by Pulse 98 98 Oximetry Oxygen Devices in Use Now: Nasal Cannula - at 2 l Appearance: Pleasant lady sitting up in bed in [facility]. Eyes: No Scleral Icterus Ears/Nose/Mouth/Throat: Mucous Membranes Moist Neck: Trachea Midline Respiratory: Symmetrical Chest Expansion and Respiratory Effort, - - BS+ bilaterally with bilateral scattered rhonchi and wheezes Cardiovascular: RRR - Normal S1 and S2 Abdominal: NL Sounds; No Tenderness; No Distention Extremities: - - Bilateral mild to moderate LE pitting edema Neurological: Alert and Oriented x 3, NL Muscle Strength and Tone Lines/Tubes/Other Access: Clean, Dry and Intact Peripheral IV Nutrition: Taking PO's Result Diagrams: 07/11/16 06:10 07/11/16 06:10 Assess/Plan/Problems-Billing Assessment: Mrs. Ramirez is a 70 yo F with PMH of COPD, chronic leg edema (on Torsemide at home ), DM2, RA on Orencia, who presented to ED with c/o cough and dyspnea, found to have COPD exacerbation secondary to pneumonia. - Patient Problems (1) SVT (supraventricular tachycardia) Comment: - Patient had an episode of SVT on 07/10/16 while walking to the bathroom. - Continue PO Cardizem and monitor. (2) COPD exacerbation Comment: - Secondary to pneumonia on an immunossupressed patient. Failed outpatient therapy with Levaquin. - Continue steroids and bronchodilators. - Continue Ceftriaxone/Azithromycin. (3) DM type 2 (diabetes mellitus, type 2) Comment: - Metformin held. - Start Lantus and continue Lispro SSI. (4) Elevated lactic acid level Comment: - Likely associated with metformin and infection. - Trending down. (5) Elevated troponin Comment: - Minimally elevate troponin in the setting of infection. Suspect demand ischemia. - Echo showed EF>65% with no wall motion abnormalities. (6) HTN (hypertension) Comment: - Better controlled - Continue Losartan and Amlodipine. (7) Hypomagnesemia Comment: - Replete. (8) Rheumatoid arthritis Comment: - Recently switched from Humira to Orencia. She feels she's getting more infections now. got sick first and she thinks she got it from him. (9) DVT prophylaxis Comment: - SQ heparin. (10) Full code status Status and Disposition: Inpatient. I called her daughter (Dr. Savanah Ramirez) at [phone] and left a msg asking her to call me back.
[2016-07-11] MEDS: Albuterol/Ipratropium NEB.SOL* Albuterol 2.5 MG/Ipratropium 0.5 MG 3 ML INH PRN (18:21)
[2016-07-11] MEDS: Insulin GLARGINE(*) 1 UNITS UNIT SUBCUT SCH (20:19)
[2016-07-11] MEDS: HYDROcodone/ACETAMIN 5-325 MG* 1 TAB PO PRN (21:32)
[2016-07-12] MEDS: Albuterol/Ipratropium NEB.SOL* Albuterol 2.5 MG/Ipratropium 0.5 MG 3 ML INH PRN ×2 (00:06→08:00)
[2016-07-12] MEDS: Heparin VIAL(*) 5000 UNITS/ML VIAL (FIVE THOUSAND) SUBCUT SCH ×3 (05:18→21:50)
[2016-07-12 05:59] LABS: BUN/Creatinine Ratio 42.5 (8-20); Calcium 8.8 mg/dL (8.6-10.3); EGFR African American 101.7 (>60); Potassium 3.4 mmol/L (3.5-5.0)
[2016-07-12] MEDS: Mometasone/Formoter 200/5 MDI INH SCH ×2 (08:00→19:37)
[2016-07-12] MEDS: methylPREDNISolone SOD SUCC* 125 MG 2 ML VIAL IV SCH ×2 (08:42→20:35)
[2016-07-12] MEDS: Losartan TAB* 25 MG PO SCH (08:43)
[2016-07-12] MEDS: Insulin LISPRO* 1 UNITS UNIT SUBCUT SCH ×6 (08:43→17:48)
[2016-07-12] MEDS: Potassium Chlor TAB* 20 MEQ TAB.ER PO SCH ×2 (08:44→20:35)
[2016-07-12] MEDS: traMADol TAB* 50 MG PO SCH (08:44)
[2016-07-12] MEDS: amLODIPine TAB* 5 MG PO SCH (08:44)
[2016-07-12] MEDS: Torsemide TAB* 20 MG PO SCH (08:44)
[2016-07-12] MEDS: Polyethylene Glycol 3350* 17 GM PACKET PO SCH ×2 (08:45→11:36)
[2016-07-12] MEDS: Diltiazem CD CAP* 120 MG PO SCH (08:45)
[2016-07-12] MEDS: Azithromycin IV(*) 500 MG in NS 0.9% 250 ML* 250 ML IVPB SCH (08:45)
[2016-07-12] MEDS: cefTRIAXone VIAL(*) 1,000 MG in NS 0.9% 50 ML* 50 ML IVPB SCH (13:52)
--- NOTE | 2016-07-12 13:59 | RAD ---
INDICATION: Question pneumonia COMPARISON: Chest x-ray July 08, 2016; CT chest April 07, 2015 TECHNIQUE: Noncontrast axial source images were obtained from the thoracic inlet to the hemidiaphragms. Coronal and sagittal reconstructed images were acquired. The visualized neck to include the thyroid appear normal. Chest wall: There are no acute abnormalities of the bony thorax or chest wall. There is no supraclavicular, infraclavicular, or axillary lymphadenopathy. Lungs : There are no pulmonary parenchymal masses or infiltrates. The pulmonary interstitium appears normal. There are no endobronchial lesions. Cardiomediastinal structures: The heart is normal in size. There is a calcified mitral annulus There is no pericardial effusion. There is no evidence of aortic aneurysm or dissection. The pulmonary vessels appear normal. There is no mediastinal or hilar adenopathy. The esophagus appears normal. Pleura : There are no pleural-based masses or effusions. Other: There are no acute or significant CT findings of the visualized upper abdomen. IMPRESSION: NO ACTIVE CARDIOPULMONARY DISEASE
--- NOTE | 2016-07-12 17:13 | PN ---
Subjective Date of Service: 07/12/16 Interval History: HOSPITALIST PROGRESS NOTE Patient seen and examined at bedside. She feels a little better today. No further episodes of palpitations, dyspnea and cough still present, but less intense. Her major complaint today is "wheezing". Family History: Unchanged from Admission Social History: Unchanged from Admission Past Medical History: Unchanged from Admission Objective Active Medications: Hydrocodone Bitart/Acetaminophen ([place] 5-325 Tab*) 1 tab PO Q4H PRN PRN Reason: PAIN - ARTHRITIS Last Admin: 07/11/16 21:32 Dose: 1 tab Albuterol/Ipratropium (Duoneb Neb.Isabel*) 1 neb INH Q4H PRN PRN Reason: SOB/WHEEZING Last Admin: 07/12/16 08:00 Dose: 1 neb Amlodipine Besylate (Norvasc Tab*) 10 mg PO DAILY [facility] Last Admin: 07/12/16 08:44 Dose: 10 mg Dextrose (D50w Syringe 50 Ml*) 12.5 gm IV PUSH .FOR FS < 60 - SS PRN PRN Reason: FS < 60 Diltiazem HCl (Cardizem Cd Cap*) 120 mg PO DAILY [facility] Last Admin: 07/12/16 08:45 Dose: 120 mg Heparin Sodium (Porcine) (Heparin Vial(*)) 5,000 units SUBCUT Q8HR [facility] Last Admin: 07/12/16 13:51 Dose: 5,000 units Azithromycin 500 mg/ Sodium (Chloride) 250 mls @ 250 mls/hr IVPB Q24H [facility] Last Admin: 07/12/16 08:45 Dose: 250 mls/hr Ceftriaxone Sodium 1,000 mg/ (Sodium Chloride) 50 mls @ 200 mls/hr IVPB Q24HR@ 1400 [facility] Last Admin: 07/12/16 13:52 Dose: 200 mls/hr Insulin Glargine (Lantus(*)) 10 units SUBCUT BEDTIME [facility] Last Admin: 07/11/16 20:19 Dose: 10 units Insulin Human Lispro (Humalog*) 0 units SUBCUT AC [facility] PRN Reason: Protocol Last Admin: 07/12/16 12:55 Dose: 5 units Insulin Human Lispro (Humalog*) 0 units SUBCUT AC [facility] PRN Reason: Protocol Last Admin: 07/12/16 12:56 Dose: 3 units Losartan Potassium (Cozaar Tab*) 100 mg PO DAILY [facility] Last Admin: 07/12/16 08:43 Dose: 100 mg Methylprednisolone Sodium Succinate (Solu-Medrol*) 60 mg IV [facility] Last Admin: 07/12/16 08:42 Dose: 60 mg Mometasone Furoate/Formoterol Fumar (Dulera 200/5 Mdi*) 2 puff INH BID [facility] Last Admin: 07/12/16 08:00 Dose: 2 puff Polyethylene Glycol/Electrolytes (Miralax*) 17 gm PO DAILY [facility] Last Admin: 07/12/16 11:36 Dose: Not Given Potassium Chloride (Klor Con Er Tab*) 20 meq PO DAILY [facility] Last Admin: 07/12/16 08:44 Dose: 20 meq Torsemide (Demadex*) 20 mg PO DAILY [facility] Last Admin: 07/12/16 08:44 Dose: 20 mg Tramadol HCl (Ultram*) 50 mg PO DAILY [facility] Last Admin: 07/12/16 08:44 Dose: 50 mg Vital Signs 07/12/16 07/12/16 07/12/16 07:42 08:00 08:04 Temperature 98.3 F Pulse Rate 88 98 Respiratory 18 18 18 Rate Blood Pressure 142/76 (mmHg) O2 Sat by Pulse 97 96 Oximetry Oxygen Devices in Use Now: Nasal Cannula - at 2 l Appearance: Pleasant elderly lady sitting up in bed in [facility]. Eyes: No Scleral Icterus Ears/Nose/Mouth/Throat: Mucous Membranes Moist Neck: Trachea Midline Respiratory: Symmetrical Chest Expansion and Respiratory Effort, - - BS+ bilaterally with diffuse rhonchi Cardiovascular: RRR - Normal S1 and S2 Abdominal: NL Sounds; No Tenderness; No Distention Extremities: - - Bilateral LE mild edema Neurological: Alert and Oriented x 3, NL Muscle Strength and Tone Lines/Tubes/Other Access: Clean, Dry and Intact Peripheral IV Nutrition: Taking PO's Result Diagrams: 07/11/16 06:10 07/12/16 05:15 Assess/Plan/Problems-Billing Assessment: Mrs. Ramirez is a 70 yo F with PMH of COPD, chronic leg edema (on Torsemide at home ), DM2, RA on Orencia, who presented to ED with c/o cough and dyspnea, found to have COPD exacerbation secondary to pneumonia. - Patient Problems (1) SVT (supraventricular tachycardia) Comment: - Patient had an episode of SVT on 07/10/16 while walking to the bathroom. - Continue PO Cardizem and monitor. (2) COPD exacerbation Comment: - Although her CxR shows hyperinflation, she never smoked (her did not smoke either). - Will check CT chest and request Pulm evaluation. - Secondary to pneumonia on an immunossupressed patient. Failed outpatient therapy with Levaquin. - Continue steroids and bronchodilators. - Continue Ceftriaxone/Azithromycin #5. (3) DM type 2 (diabetes mellitus, type 2) Comment: - Metformin held. - Continue Lantus and Lispro SSI. - Diabetes education consult. (4) Elevated lactic acid level Comment: - Likely associated with metformin and infection. - Trending down. (5) Elevated troponin Comment: - Minimally elevated troponin in the setting of infection. Suspect demand ischemia. - Echo showed EF>65% with no wall motion abnormalities. (6) HTN (hypertension) Comment: - Better controlled - Continue Losartan and Amlodipine. (7) Rheumatoid arthritis Comment: - Recently switched from Humira to Orencia. She feels she's getting more infections now. got sick first and she thinks she got it from him. (8) DVT prophylaxis Comment: - SQ heparin. (9) Full code status Status and Disposition: Inpatient. I called her daughter (Dr. Pavon Kimballton) at [phone] yesterday and updated her about patient's condition.
[2016-07-12] MEDS: Insulin GLARGINE(*) 1 UNITS UNIT SUBCUT SCH (20:35)
[2016-07-12] MEDS: HYDROcodone/ACETAMIN 5-325 MG* 1 TAB PO PRN (21:50)
--- NOTE | 2016-07-13 00:09 | CONS ---
PULMONARY CONSULTATION REPORT: DATE OF CONSULT: 07/12/16 REASON FOR CONSULTATION: Evaluation of shortness of breath. HISTORY OF PRESENT ILLNESS: The patient is a 70-year-old obese female with a history of COPD, hypertension, and diabetes, who presented to the ED for evaluation of worsening shortness of breath and cough. The patient's has been having similar symptoms recently. The patient also has a history of rheumatoid arthritis and is on immuno-suppressive medications. The patient's symptoms started 2 days ago, at which time she felt wheezy and had cough. The patient has history of asthma, which was well controlled until recently. The patient's symptoms worsened and has developed a temperature with T-max of 101.4 on Tuesday and Tuesday. She started feeling worse the following day, had worsening shortness of breath with difficulty lying down flat in bed. The patient also had a nonproductive cough and felt wheezy. The patient seen by her primary care physician who recommended evaluation in the ED. The patient was given a history of COPD, is a lifelong nonsmoker. The patient has required prednisone in the past for asthma exacerbations. The patient reports improvement in breathing since admission. The patient, however, has been becoming dyspneic with minimal exertion or walking to the restroom. The patient was noted to have elevated lactic acid of 2.9. She was also noted to have leukocytosis with WBC count of 12.2. I have personally reviewed chest x- ray and CT scan of the chest. The patient noted to have patchy airspace opacities bilaterally on CT chest. No nodules or masses were seen. No evidence of emphysema was seen. PAST MEDICAL HISTORY: 1. COPD secondary to underlying poorly controlled asthma. 2. Hypertension. 3. Type 2 diabetes. 4. Possible obstructive sleep apnea. 5. Morbid obesity. MEDICATIONS: 1. Tylenol. 2. Ativan. 3. Albuterol. 4. Amlodipine. 5. Ammonium lactate. 6. Clobetasol. 7. Clotrimazole. 8. Fexofenadine. 9. Flonase. 10. Fluocinonide. 11. Metformin. 12. Hydrocodone. 13. Ketoconazole. 14. Levaquin, prescribed 07/05/16. 15. Losartan. 16. MiraLAX. 17. Nystatin. 18. Ondansetron. 19. Orencia. 20. Prednisone taper. 21. Tizanidine. 22. Torsemide. 23. Tramadol. 24. Voltaren. ALLERGIES: No known drug allergies. FAMILY HISTORY: Mother related to old age. Father while in coma. SOCIAL HISTORY: No tobacco, alcohol, or drug abuse. The patient lives at home with her . REVIEW OF SYSTEMS: All 14 systems reviewed as per HPI. PHYSICAL EXAM: General: The patient sitting up in chair, in no apparent distress. Vital Signs: Temperature 98.3, pulse 88 beats per minute, respiratory rate 18, O2 sat 97% on 2 L, and blood pressure 142/76. HEENT: Pupils equal, reactive to light. Mucous membranes moist. Lungs: Scattered wheezing bilaterally. No accessory muscle usage. Cardiovascular: S1, S2 present. Regular. Abdomen: Obese. Bowel sounds present. Nontender and nondistended. Extremities: Normal range of motion, 2+ edema present. Skin: Intact. Neuro: Alert, awake, and oriented x3. No focal deficits. DIAGNOSTIC STUDIES/LAB DATA: WBC count 14.5, hemoglobin 11.6, hematocrit 36, and platelet count 399. Sodium 137, potassium 3.4, chloride 97, bicarb 29, BUN 31, and creatinine 0.73. Influenza A and B negative. Chest x-ray and CT scan of the chest as described above in HPI. Echocardiogram showed evidence of normal EF with diastolic dysfunction. No significant change compared to the last echo. IMPRESSION AND RECOMMENDATIONS: 70-year-old morbidly obese female with a history of poorly-controlled asthma resulting in chronic obstructive pulmonary disease, with recent viral upper respiratory infection symptoms. 1. Viral bronchitis with possible asthma exacerbation. 2. Sepsis secondary to viral syndrome, improving. 3. CT chest did not show significant pneumonia. The patient noted to have patchy airspace opacities consistent with viral syndrome. The patient has history of rheumatoid arthritis and has been on immunosuppressive medications, which might have resulted in prolonged course and slow recovery. Continue with current antibiotics. Continue with bronchodilators. Continue with prednisone taper, steroid taper can change to prednisone. The patient will need PFTs and evaluation for possible sleep apnea as an outpatient. Thank you for allowing me to participate in the care of your patient. Will follow up with you. [id number]/[facility] #: [id number] RIANNA
[2016-07-13] MEDS: Heparin VIAL(*) 5000 UNITS/ML VIAL (FIVE THOUSAND) SUBCUT SCH ×3 (05:31→22:46)
[2016-07-13] MEDS: Mometasone/Formoter 200/5 MDI INH SCH ×2 (08:30→20:27)
[2016-07-13] MEDS ORDERED: NS 0.9% 250 ML* 250 ML ONE (09:21)
[2016-07-13] MEDS: methylPREDNISolone SOD SUCC* 125 MG 2 ML VIAL IV SCH ×2 (09:37→20:21)
[2016-07-13] MEDS: Insulin LISPRO* 1 UNITS UNIT SUBCUT SCH ×6 (09:37→17:38)
[2016-07-13] MEDS: Torsemide TAB* 20 MG PO SCH (09:38)
[2016-07-13] MEDS: traMADol TAB* 50 MG PO SCH (09:38)
[2016-07-13] MEDS: Diltiazem CD CAP* 120 MG PO SCH (09:38)
[2016-07-13] MEDS: Potassium Chlor TAB* 20 MEQ TAB.ER PO SCH ×2 (09:39→17:39)
[2016-07-13] MEDS: amLODIPine TAB* 5 MG PO SCH (09:39)
[2016-07-13] MEDS: Azithromycin IV(*) 500 MG in NS 0.9% 250 ML* 250 ML IVPB SCH (09:40)
[2016-07-13] MEDS: Losartan TAB* 25 MG PO SCH (09:40)
[2016-07-13] MEDS: Polyethylene Glycol 3350* 17 GM PACKET PO SCH (10:05)
--- NOTE | 2016-07-13 11:40 | PN ---
Progress Note - Progress Note Note: Pulm consult f/u note 07/13/16. Pt seen and examined at bedside. Pt reports improvement in breathing and wheezing. Cough is less. Active Medications Generic Name Dose Route Start Last Admin Trade Name Freq PRN Reason Stop Dose Admin Hydrocodone Bitart/Acetaminophen 1 tab 07/08/16 20:59 07/12/16 21:50 [place] 5-325 Tab* PO 1 tab Q4H PRN Administration PAIN - ARTHRITIS Albuterol/Ipratropium 1 neb 07/08/16 19:51 07/12/16 08:00 Duoneb Neb.Isabel* INH 1 neb Q4H PRN Administration SOB/WHEEZING Amlodipine Besylate 10 mg 07/09/16 13:26 07/13/16 09:39 Norvasc Tab* PO 10 mg DAILY [facility] Administration Dextrose 12.5 gm 07/08/16 19:55 D50w Syringe 50 Ml* IV PUSH .FOR FS < 60 - SS PRN FS < 60 Diltiazem HCl 120 mg 07/11/16 09:00 07/13/16 09:38 Cardizem Cd Cap* PO 120 mg DAILY [facility] Administration Heparin Sodium (Porcine) 5,000 units 07/08/16 22:00 07/13/16 05:31 Heparin Vial(*) SUBCUT 5,000 units Q8HR [facility] Administration Azithromycin 500 mg/ Sodium 250 mls @ 250 mls/hr 07/09/16 09:00 07/13/16 09: 40 Chloride IVPB 250 mls/hr Q24H [facility] Administration Ceftriaxone Sodium 1,000 mg/ 50 mls @ 200 mls/hr 07/11/16 14:00 07/12/16 13: 52 Sodium Chloride IVPB 200 mls/hr Q24HR@1400 [facility] Administration Insulin Glargine 10 units 07/11/16 21:00 07/12/16 20:35 Lantus(*) SUBCUT 10 units BEDTIME [facility] Administration Insulin Human Lispro 0 units 07/10/16 16:30 07/13/16 09:37 Humalog* SUBCUT 4 units AC [facility] Administration Protocol Insulin Human Lispro 0 units 07/10/16 16:25 07/13/16 09:38 Humalog* SUBCUT 6 units AC [facility] Administration Protocol Losartan Potassium 100 mg 07/09/16 09:00 07/13/16 09:40 Cozaar Tab* PO 100 mg DAILY [facility] Administration Methylprednisolone Sodium Succinate 60 mg 07/11/16 21:00 07/13/16 09:37 Solu-Medrol* IV 60 mg 799,1999 [facility] Administration Mometasone Furoate/Formoterol Fumar 2 puff 07/10/16 21:00 07/13/16 08:30 Dulera 200/5 Mdi* INH 2 puff BID [facility] Administration Polyethylene Glycol/Electrolytes 17 gm 07/09/16 09:00 07/13/16 10:05 Miralax* PO Not Given DAILY [facility] Potassium Chloride 20 meq 07/12/16 21:00 07/13/16 09:39 Klor Con Er Tab* PO 20 meq BID WITH MEALS [facility] Administration Torsemide 20 mg 07/10/16 09:00 07/13/16 09:38 Demadex* PO 20 mg DAILY [facility] Administration Tramadol HCl 50 mg 07/09/16 09:00 07/13/16 09:38 Ultram* PO 50 mg DAILY [facility] Administration Vital Signs Temp Pulse Resp BP Pulse Ox 98.5 F 90 18 141/69 97 07/13/16 07:55 07/13/16 09:39 07/13/16 09:39 07/13/16 07:55 07/13/16 09:39 Gen: Pleasant elderly lady sitting up in bed in [facility]. HEENT: No Scleral Icterus, Mucous Membranes Moist Neck: Trachea Midline Respiratory: Symmetrical Chest Expansion and Respiratory Effort, BS+ bilaterally , scaterred rhonchi Cardiovascular: RRR, Normal S1 and S2 Abdominal: NL Sounds; No Tenderness; No Distention Extremities: Bilateral LE mild edema Neurological: Alert and Oriented x 3, NL Muscle Strength and Tone Laboratory Results - last 24 hr 07/12/16 07/12/16 07/13/16 12:14 16:56 07:35 POC Glucose (mg/dL) 188 H 178 H 205 H I/R: Pt is a 70 yo F with PMH of COPD likely secondary to poorly controlled asthma, DM2, RA on Orencia, who presented to ED with c/o cough and dyspnea, found to have COPD exacerbation secondary to pneumonia. No evidence of emphysema on CT chest Hyperinflation likely secondary to fixed obstruction from poorly controlled underlying asthma No evidence of significant PNA on CT chest - Taper steroids, c/w bronchodilators. - Continue Ceftriaxone/Azithromycin #6/7
[2016-07-13] MEDS: cefTRIAXone VIAL(*) 1,000 MG in NS 0.9% 50 ML* 50 ML IVPB SCH (13:39)
--- NOTE | 2016-07-13 16:53 | PN ---
Subjective Date of Service: 07/13/16 Interval History: HOSPITALIST PROGRESS NOTE Patient seen and examined at bedside. She feels a little better today. Still has significant dyspnea with exertion, moist cough with no sputum production. Family History: Unchanged from Admission Social History: Unchanged from Admission Past Medical History: Unchanged from Admission Objective Active Medications: Hydrocodone Bitart/Acetaminophen ([place] 5-325 Tab*) 1 tab PO Q4H PRN PRN Reason: PAIN - ARTHRITIS Last Admin: 07/12/16 21:50 Dose: 1 tab Albuterol/Ipratropium (Duoneb Neb.Isabel*) 1 neb INH Q4H PRN PRN Reason: SOB/WHEEZING Last Admin: 07/12/16 08:00 Dose: 1 neb Amlodipine Besylate (Norvasc Tab*) 10 mg PO DAILY [facility] Last Admin: 07/13/16 09:39 Dose: 10 mg Dextrose (D50w Syringe 50 Ml*) 12.5 gm IV PUSH .FOR FS < 60 - SS PRN PRN Reason: FS < 60 Diltiazem HCl (Cardizem Cd Cap*) 120 mg PO DAILY [facility] Last Admin: 07/13/16 09:38 Dose: 120 mg Heparin Sodium (Porcine) (Heparin Vial(*)) 5,000 units SUBCUT Q8HR [facility] Last Admin: 07/13/16 13:16 Dose: 5,000 units Azithromycin 500 mg/ Sodium (Chloride) 250 mls @ 250 mls/hr IVPB Q24H [facility] Last Admin: 07/13/16 09:40 Dose: 250 mls/hr Ceftriaxone Sodium 1,000 mg/ (Sodium Chloride) 50 mls @ 200 mls/hr IVPB Q24HR@ 1400 [facility] Last Admin: 07/13/16 13:39 Dose: 200 mls/hr Insulin Glargine (Lantus(*)) 10 units SUBCUT BEDTIME [facility] Last Admin: 07/12/16 20:35 Dose: 10 units Insulin Human Lispro (Humalog*) 0 units SUBCUT AC [facility] PRN Reason: Protocol Last Admin: 07/13/16 13:15 Dose: 7 units Insulin Human Lispro (Humalog*) 0 units SUBCUT AC [facility] PRN Reason: Protocol Last Admin: 07/13/16 13:15 Dose: 9 units Losartan Potassium (Cozaar Tab*) 100 mg PO DAILY [facility] Last Admin: 07/13/16 09:40 Dose: 100 mg Methylprednisolone Sodium Succinate (Solu-Medrol*) 60 mg IV [facility] Last Admin: 07/13/16 09:37 Dose: 60 mg Mometasone Furoate/Formoterol Fumar (Dulera 200/5 Mdi*) 2 puff INH BID [facility] Last Admin: 07/13/16 08:30 Dose: 2 puff Polyethylene Glycol/Electrolytes (Miralax*) 17 gm PO DAILY [facility] Last Admin: 07/13/16 10:05 Dose: Not Given Potassium Chloride (Klor Con Er Tab*) 20 meq PO BID WITH MEALS [facility] Last Admin: 07/13/16 09:39 Dose: 20 meq Torsemide (Demadex*) 20 mg PO DAILY [facility] Last Admin: 07/13/16 09:38 Dose: 20 mg Tramadol HCl (Ultram*) 50 mg PO DAILY [facility] Last Admin: 07/13/16 09:38 Dose: 50 mg Vital Signs 07/12/16 07/13/16 07/13/16 23:52 07:15 07:55 Temperature 98.0 F 97.6 F 98.5 F Pulse Rate 89 86 88 Respiratory 16 20 20 Rate Blood Pressure 142/70 151/73 141/69 (mmHg) O2 Sat by Pulse 95 97 94 Oximetry Oxygen Devices in Use Now: Nasal Cannula - at 2 l Appearance: Pleasant elderly lady sitting up in bed in [facility]. Eyes: No Scleral Icterus Ears/Nose/Mouth/Throat: Mucous Membranes Moist Neck: Trachea Midline Respiratory: Symmetrical Chest Expansion and Respiratory Effort, - - BS+ bilaterally with scattered rhonchi. Cardiovascular: RRR - Normal S1 and S2 Abdominal: NL Sounds; No Tenderness; No Distention Extremities: - - + edema Neurological: Alert and Oriented x 3, NL Muscle Strength and Tone Lines/Tubes/Other Access: Clean, Dry and Intact Peripheral IV Nutrition: Taking PO's Result Diagrams: 07/11/16 06:10 07/12/16 05:15 Assess/Plan/Problems-Billing Assessment: Mrs. Ramirez is a 70 yo F with PMH of COPD, chronic leg edema (on Torsemide at home ), DM2, RA on Orencia, who presented to ED with c/o cough and dyspnea, found to have COPD exacerbation secondary to pneumonia. - Patient Problems (1) SVT (supraventricular tachycardia) Comment: - Patient had an episode of SVT on 07/10/16 while walking to the bathroom, no further episodes. - Continue PO Cardizem and monitor. (2) Asthma exacerbation Comment: - Although her CxR shows hyperinflation, she never smoked (her did not smoke either). - CT chest reviewed and Pulm evaluation appreciated. - Secondary to pneumonia on an immunossupressed patient. Failed outpatient therapy with Levaquin. - Continue steroids and bronchodilators. - Continue Ceftriaxone/Azithromycin #6. - Check SO2 on RA and with supplemental O2 at rest and with exertion to see if she'll qualify for home O2. - She lives in a 3rd floor apartment in a building without elevator. May need to try stairs in the hospital to see if she's able to get to her home. (3) DM type 2 (diabetes mellitus, type 2) Comment: - Metformin held. - Increase Lantus and continue Lispro SSI. - Diabetes education consult. (4) Elevated lactic acid level Comment: - Likely associated with metformin and infection. - Trending down. (5) Elevated troponin Comment: - Minimally elevated troponin in the setting of infection. Suspect demand ischemia. - Echo showed EF>65% with no wall motion abnormalities. (6) HTN (hypertension) Comment: - Better controlled - Continue Losartan and Amlodipine. (7) Rheumatoid arthritis Comment: - Recently switched from Actemra to Orencia. She feels she's getting more infections now. got sick first and she thinks she got it from him. Will need to discuss returning to Actemra with Dr. Doshi. (8) DVT prophylaxis Comment: - SQ heparin. (9) Full code status Status and Disposition: Inpatient.
[2016-07-13] MEDS: Insulin GLARGINE(*) 1 UNITS UNIT SUBCUT SCH (20:22)
[2016-07-13] MEDS: HYDROcodone/ACETAMIN 5-325 MG* 1 TAB PO PRN (22:45)
[2016-07-14] MEDS: Heparin VIAL(*) 5000 UNITS/ML VIAL (FIVE THOUSAND) SUBCUT SCH ×3 (06:16→20:54)
[2016-07-14] MEDS: Mometasone/Formoter 200/5 MDI INH SCH ×2 (07:47→19:50)
[2016-07-14] MEDS: Polyethylene Glycol 3350* 17 GM PACKET PO SCH (09:16)
[2016-07-14] MEDS: Insulin LISPRO* 1 UNITS UNIT SUBCUT SCH ×6 (09:17→17:40)
[2016-07-14] MEDS: amLODIPine TAB* 5 MG PO SCH (09:18)
[2016-07-14] MEDS: Diltiazem CD CAP* 120 MG PO SCH (09:18)
[2016-07-14] MEDS: Potassium Chlor TAB* 20 MEQ TAB.ER PO SCH ×2 (09:19→16:40)
[2016-07-14] MEDS: Torsemide TAB* 20 MG PO SCH (09:19)
[2016-07-14] MEDS: Losartan TAB* 25 MG PO SCH (09:19)
[2016-07-14] MEDS: methylPREDNISolone SOD SUCC* 125 MG 2 ML VIAL IV SCH ×2 (09:20→20:48)
[2016-07-14] MEDS: traMADol TAB* 50 MG PO SCH (09:20)
[2016-07-14] MEDS: Azithromycin IV(*) 500 MG in NS 0.9% 250 ML* 250 ML IVPB SCH (09:39)
--- NOTE | 2016-07-14 11:59 | PN ---
Progress Note - Progress Note Note: Pulm consult f/u note 07/14/16. Pt seen and examined at bedside. Pt reports having chest pain last night that lasted few seconds, is pain free today. Troponins mildly elevated. Active Medications Generic Name Dose Route Start Last Admin Trade Name Freq PRN Reason Stop Dose Admin Hydrocodone Bitart/Acetaminophen 1 tab 07/08/16 20:59 07/13/16 22:45 [place] 5-325 Tab* PO 1 tab Q4H PRN Administration PAIN - ARTHRITIS Albuterol/Ipratropium 1 neb 07/08/16 19:51 07/12/16 08:00 Duoneb Neb.Isabel* INH 1 neb Q4H PRN Administration SOB/WHEEZING Amlodipine Besylate 10 mg 07/09/16 13:26 07/14/16 09:18 Norvasc Tab* PO 10 mg DAILY [facility] Administration Dextrose 12.5 gm 07/08/16 19:55 D50w Syringe 50 Ml* IV PUSH .FOR FS < 60 - SS PRN FS < 60 Diltiazem HCl 120 mg 07/11/16 09:00 07/14/16 09:18 Cardizem Cd Cap* PO 120 mg DAILY [facility] Administration Heparin Sodium (Porcine) 5,000 units 07/08/16 22:00 07/14/16 06:16 Heparin Vial(*) SUBCUT 5,000 units Q8HR [facility] Administration Azithromycin 500 mg/ Sodium 250 mls @ 250 mls/hr 07/09/16 09:00 07/14/16 09: 39 Chloride IVPB 250 mls/hr Q24H [facility] Administration Ceftriaxone Sodium 1,000 mg/ 50 mls @ 200 mls/hr 07/11/16 14:00 07/13/16 13: 39 Sodium Chloride IVPB 200 mls/hr Q24HR@1400 [facility] Administration Insulin Glargine 15 units 07/13/16 21:00 07/13/16 20:22 Lantus(*) SUBCUT 15 unit BEDTIME [facility] Administration Insulin Human Lispro 0 units 07/10/16 16:30 07/14/16 09:17 Humalog* SUBCUT 5 units AC [facility] Administration Protocol Insulin Human Lispro 0 units 07/10/16 16:25 07/14/16 09:17 Humalog* SUBCUT 3 units AC [facility] Administration Protocol Losartan Potassium 100 mg 07/09/16 09:00 07/14/16 09:19 Cozaar Tab* PO 100 mg DAILY [facility] Administration Methylprednisolone Sodium Succinate 60 mg 07/11/16 21:00 07/14/16 09:20 Solu-Medrol* IV 60 mg 08,1999 [facility] Administration Methylprednisolone Sodium Succinate 20 mg 07/15/16 11:51 Solu-Medrol* IV 07/15/16 11:52 ONCE ONE Mometasone Furoate/Formoterol Fumar 2 puff 07/10/16 21:00 07/14/16 07:47 Dulera 200/5 Mdi* INH 2 puff BID [facility] Administration Polyethylene Glycol/Electrolytes 17 gm 07/09/16 09:00 07/14/16 09:16 Miralax* PO Not Given DAILY [facility] Potassium Chloride 20 meq 07/12/16 21:00 07/14/16 09:19 Klor Con Er Tab* PO 20 meq BID WITH MEALS [facility] Administration Torsemide 20 mg 07/10/16 09:00 07/14/16 09:19 Demadex* PO 20 mg DAILY [facility] Administration Tramadol HCl 50 mg 07/09/16 09:00 07/14/16 09:20 Ultram* PO 50 mg DAILY [facility] Administration Vital Signs Temp Pulse Resp BP Pulse Ox 98.1 F 94 18 118/67 94 07/14/16 11:27 07/14/16 11:27 07/14/16 11:27 07/14/16 11:27 07/14/16 11:27 Gen: Pleasant elderly lady sitting up in bed in [facility]. HEENT: No Scleral Icterus, Mucous Membranes Moist Neck: Trachea Midline Respiratory: Symmetrical Chest Expansion and Respiratory Effort, BS+ bilaterally , scaterred rhonchi Cardiovascular: RRR, Normal S1 and S2 Abdominal: NL Sounds; No Tenderness; No Distention Extremities: Bilateral LE mild edema Neurological: Alert and Oriented x 3, NL Muscle Strength and Tone Laboratory Results - last 24 hr 07/12/16 07/12/16 07/13/16 12:14 16:56 07:35 POC Glucose (mg/dL) 188 H 178 H 205 H I/R: Pt is a 70 yo F with PMH of COPD likely secondary to poorly controlled asthma, DM2, RA on Orencia, who presented to ED with c/o cough and dyspnea, found to have COPD exacerbation secondary to pneumonia. No evidence of emphysema on CT chest Hyperinflation likely secondary to fixed obstruction from poorly controlled underlying asthma No evidence of significant PNA on CT chest - Steroids, c/w bronchodilators. - Continue Ceftriaxone/Azithromycin #11/05 pt will need cardiac evaluation as out pt Recommend PPI Will order overnight oximetry
[2016-07-14] MEDS ORDERED: Omeprazole CAP* 20 MG PO ONE (12:25)
[2016-07-14] MEDS ORDERED: methylPREDNISolone SOD SUCC* 40 MG/ML VIAL IV ONE (12:28)
[2016-07-14] MEDS: cefTRIAXone VIAL(*) 1,000 MG in NS 0.9% 50 ML* 50 ML IVPB SCH (13:31)
--- NOTE | 2016-07-14 15:18 | CONSULT ---
Subjective Reason for Visit: SOB, wheezing Admission Date: 07/09/16 Glucose Level On Admission: 213 History Of Present Illness: Ms. Sanford is a 70 year old female who was admitted on 07/09/16 for treatment of pneumonia and COPD exacerbation. She has been a type II diabetic for 6-7 years. She reports having some diabetes education at the time of her diagnosis. Overall, she states that she has been well controlled and was actually able to go off of Metformin. She rarely checks her blood glucose at home but does have a glucometer. She does not count carbohydrates. She used to be more physically active, but has been unable to work out because of pain and swelling in her feet and legs. She states that she has been gaining weight. Patient History Surgical History: Yes Surgery Procedure, Year, and Place: right ear drum 8 yrs ago Lives With: Family Hx Tobacco Use: No Review Of Systems - Review of Systems Constant: - - reports weight gain Eyes: No Changes Cardiovascular: - - edema BLE Respiratory: - - SOB, wheezing Abdominal: No Nausea, No Diarrhea, No Vomitting Skin: No Open Wounds Endocrine: No Polyuria, No Polyphagia, No Polydipsia, - Objective Allergies Allergy/AdvReac Type Severity Reaction Status Date / Time No Known Allergies Allergy Verified 06/23/16 15:07 Home Medications Medication Instructions Recorded Confirmed Type Acetaminophen [Acetaminophen Extra 500 mg PO TID 12/31/15 07/08/16 History Stren] Clobetasol 0.05% OINT* 1 applic TOPICAL BID 12/31/15 07/08/16 History Fexofenadine (NF) [Beth 180 180 mg PO DAILY 12/31/15 07/08/16 History (NF)] Fluticasone NASAL SPRAY 50MCG* 1 spray BOTH NARES DAILY PRN 12/31/15 07/08/16 History [Flonase NASAL SPRAY 50MCG*] Fluticasone-Salmeterol 500-50* 1 puff INH DAILY 12/31/15 07/08/16 History [Advair Diskus 500-50*] Lactic Acid (Ammonium Lactate) 1 applic TOPICAL DAILY 12/31/15 07/08/16 History [Ammonium Lactate] Losartan Potassium 100 mg PO DAILY 12/31/15 07/08/16 History Polyethylene Glycol 3350* 17 gm PO DAILY 12/31/15 07/08/16 History [Miralax*] amLODIPine TAB* [Norvasc TAB*] 5 mg PO DAILY 12/31/15 07/08/16 History traMADol TAB* [Ultram*] 50 mg PO DAILY 12/31/15 07/08/16 History Abatacept* [Orencia*] 250 mg IV 07/08/16 History HYDROcodone/ACETAMIN 5-325 MG* 1 tab PO Q4H PRN 07/08/16 07/08/16 History [[place] 5-325 TAB*] Levofloxacin TAB* [Levaquin TAB*] 500 mg PO DAILY 07/08/16 07/08/16 History Prednisone 20 mg PO 07/08/16 History Hospital Medications: Current Medications Hydrocodone Bitart/Acetaminophen ([place] 5-325 Tab*) 1 tab PO Q4H PRN PRN Reason: PAIN - ARTHRITIS Last Admin: 07/13/16 22:45 Dose: 1 tab Albuterol/Ipratropium (Duoneb Neb.Isabel*) 1 neb INH Q4H PRN PRN Reason: SOB/WHEEZING Last Admin: 07/12/16 08:00 Dose: 1 neb Amlodipine Besylate (Norvasc Tab*) 10 mg PO DAILY [facility] Last Admin: 07/14/16 09:18 Dose: 10 mg Dextrose (D50w Syringe 50 Ml*) 12.5 gm IV PUSH .FOR FS < 60 - SS PRN PRN Reason: FS < 60 Diltiazem HCl (Cardizem Cd Cap*) 120 mg PO DAILY [facility] Last Admin: 07/14/16 09:18 Dose: 120 mg Heparin Sodium (Porcine) (Heparin Vial(*)) 5,000 units SUBCUT Q8HR [facility] Last Admin: 07/14/16 13:30 Dose: 5,000 units Azithromycin 500 mg/ Sodium (Chloride) 250 mls @ 250 mls/hr IVPB Q24H [facility] Last Admin: 07/14/16 09:39 Dose: 250 mls/hr Ceftriaxone Sodium 1,000 mg/ (Sodium Chloride) 50 mls @ 200 mls/hr IVPB Q24HR@ 1400 [facility] Last Admin: 07/14/16 13:31 Dose: 200 mls/hr Insulin Glargine (Lantus(*)) 15 units SUBCUT BEDTIME [facility] Last Admin: 07/13/16 20:22 Dose: 15 unit Insulin Human Lispro (Humalog*) 0 units SUBCUT AC [facility] PRN Reason: Protocol Last Admin: 07/14/16 13:04 Dose: 8 units Insulin Human Lispro (Humalog*) 0 units SUBCUT AC [facility] PRN Reason: Protocol Last Admin: 07/14/16 13:05 Dose: 9 units Losartan Potassium (Cozaar Tab*) 100 mg PO DAILY [facility] Last Admin: 07/14/16 09:19 Dose: 100 mg Methylprednisolone Sodium Succinate (Solu-Medrol*) 60 mg IV 0800,2000 [facility] Last Admin: 07/14/16 09:20 Dose: 60 mg Mometasone Furoate/Formoterol Fumar (Dulera 200/5 Mdi*) 2 puff INH BID [facility] Last Admin: 07/14/16 07:47 Dose: 2 puff Omeprazole (Prilosec Cap*) 20 mg PO DAILY@0600 [facility] Polyethylene Glycol/Electrolytes (Miralax*) 17 gm PO DAILY [facility] Last Admin: 07/14/16 09:16 Dose: Not Given Potassium Chloride (Klor Con Er Tab*) 20 meq PO BID WITH MEALS [facility] Last Admin: 07/14/16 09:19 Dose: 20 meq Torsemide (Demadex*) 20 mg PO DAILY [facility] Last Admin: 07/14/16 09:19 Dose: 20 mg Tramadol HCl (Ultram*) 50 mg PO DAILY [facility] Last Admin: 07/14/16 09:20 Dose: 50 mg Lab Data: Sodium 137 mmol/L (133-145) 07/12/16 05:15 Potassium 3.4 mmol/L (3.5-5.0) L 07/12/16 05:15 BUN 31 mg/dL (6-24) H 07/12/16 05:15 Creatinine 0.73 mg/dL (0.51-0.95) 07/12/16 05:15 Calcium 8.8 mg/dL (8.6-10.3) 07/12/16 05:15 Magnesium 2.0 mg/dL (1.9-2.7) 07/12/16 05:15 AST 39 U/L (13-39) 07/08/16 17:46 ALT 27 U/L (7-52) 07/08/16 17:46 Vital Signs: Vital Signs 0307/14/16 07/14/16 07:22 07:30 09:05 Temperature 36.8 C Pulse Rate 88 91 Respiratory 16 20 18 Rate Blood Pressure 136/63 (mmHg) O2 Sat by Pulse 92 92 Oximetry 07/14/16 07/14/16 07/14/16 09:20 11:20 11:27 Temperature 36.7 C Pulse Rate 94 Respiratory 16 20 18 Rate Blood Pressure 118/67 (mmHg) O2 Sat by Pulse 94 Oximetry Height: 5 ft 2 in Weight: 93.032 kg Body Mass Index (BMI): 37.5 Physical Exam General Appearance: Positive: Alert, Oriented x3, Well Developed, Obese, No Distress Respiratory: Positive: Non-Labored Peripheral Extremities: Positive: Pulse: Dosalis Pedis Plan Of Care Patient's Next Step: We discussed carbohydrate counting in detail. Discussed the importance of exercise and ways to exercise with her leg pain. We talked about weight reduction. We discussed balanced meal planning. She is interested in following up as an outpatient at [facility] for additional diabetes education. Referral To: [facility] For Further OutPT Diabetic Training Diagnosis: Type II diabetes Education Prior Diabetic Education: Yes Education Provided: Insulin To Carb Ratio and Carb Counting Handouts Provided: my plate, 45 gram carbohydrate
[2016-07-14] MEDS ORDERED: Potassium Chlor TAB* 10 MEQ TAB.ER PO ONE (17:42)
--- NOTE | 2016-07-14 19:19 | PN ---
Subjective Date of Service: 07/14/16 Interval History: Interviewed and examined patient at bedside; Discussed case with Dr. Owusu ; Reviewed previous notes and radiology results; Family History: Unchanged from Admission Social History: Unchanged from Admission Past Medical History: Unchanged from Admission Objective Active Medications: . Hydrocodone Bitart/Acetaminophen ([place] 5-325 Tab*) 1 tab PO Q4H PRN PRN Reason: PAIN - ARTHRITIS Last Admin: 07/13/16 22:45 Dose: 1 tab Albuterol/Ipratropium (Duoneb Neb.Isabel*) 1 neb INH Q4H PRN PRN Reason: SOB/WHEEZING Last Admin: 07/12/16 08:00 Dose: 1 neb Amlodipine Besylate (Norvasc Tab*) 10 mg PO DAILY [facility] Last Admin: 07/14/16 09:18 Dose: 10 mg Dextrose (D50w Syringe 50 Ml*) 12.5 gm IV PUSH .FOR FS < 60 - SS PRN PRN Reason: FS < 60 Diltiazem HCl (Cardizem Cd Cap*) 120 mg PO DAILY [facility] Last Admin: 07/14/16 09:18 Dose: 120 mg Heparin Sodium (Porcine) (Heparin Vial(*)) 5,000 units SUBCUT Q8HR [facility] Last Admin: 07/14/16 13:30 Dose: 5,000 units Insulin Glargine (Lantus(*)) 15 units SUBCUT BEDTIME [facility] Last Admin: 07/13/16 20:22 Dose: 15 unit Insulin Human Lispro (Humalog*) 0 units SUBCUT AC [facility] PRN Reason: Protocol Last Admin: 07/14/16 17:40 Dose: 3 units Insulin Human Lispro (Humalog*) 0 units SUBCUT AC [facility] PRN Reason: Protocol Last Admin: 07/14/16 16:42 Dose: Not Given Losartan Potassium (Cozaar Tab*) 100 mg PO DAILY [facility] Last Admin: 07/14/16 09:19 Dose: 100 mg Methylprednisolone Sodium Succinate (Solu-Medrol*) 60 mg IV 0800,2000 [facility] Last Admin: 07/14/16 09:20 Dose: 60 mg Mometasone Furoate/Formoterol Fumar (Dulera 200/5 Mdi*) 2 puff INH BID [facility] Last Admin: 07/14/16 07:47 Dose: 2 puff Omeprazole (Prilosec Cap*) 20 mg PO DAILY@0600 [facility] Polyethylene Glycol/Electrolytes (Miralax*) 17 gm PO DAILY [facility] Last Admin: 07/14/16 09:16 Dose: Not Given Potassium Chloride (Klor Con Er Tab*) 20 meq PO BID WITH MEALS [facility] Last Admin: 07/14/16 16:40 Dose: 20 meq Torsemide (Demadex*) 20 mg PO DAILY [facility] Last Admin: 07/14/16 09:19 Dose: 20 mg Tramadol HCl (Ultram*) 50 mg PO DAILY [facility] Last Admin: 07/14/16 09:20 Dose: 50 mg . Vital Signs 07/13/16 07/13/16 07/13/16 20:00 20:30 20:31 Temperature Pulse Rate 92 Respiratory 20 Rate Blood Pressure (mmHg) O2 Sat by Pulse 94 94 Oximetry 07/13/16 07/13/16 07/14/16 22:45 23:22 00:45 Temperature 98.1 F Pulse Rate 94 Respiratory 18 20 20 Rate Blood Pressure 154/73 (mmHg) O2 Sat by Pulse 95 Oximetry Oxygen Devices in Use Now: Nasal Cannula - at 2 l Appearance: NAD; pleasant Eyes: No Scleral Icterus, PERRLA Ears/Nose/Mouth/Throat: NL Teeth, Lips, Gums Neck: NL Appearance and Movements; NL JVP Respiratory: Symmetrical Chest Expansion and Respiratory Effort, - - diffuse rhonchourous sounds - better than earlier descriptions. Cardiovascular: NL Sounds; No Murmurs; No JVD Abdominal: NL Sounds; No Tenderness; No Distention Lymphatic: No Cervical Adenopathy Extremities: No Edema Skin: No Rash or Ulcers Neurological: Alert and Oriented x 3 Lines/Tubes/Other Access: Clean, Dry and Intact Peripheral IV Result Diagrams: 07/11/16 06:10 07/12/16 05:15 Additional Lab and Data: . Microbiology and Other Data: Microbiology 07/08/16 22:47 Legionella Urinary Antigen - Final Urine Negative Legionella Streptococcus pneumoniae Ag Screen - Final Negative S. pneumo Antigen Assess/Plan/Problems-Billing . Assessment: Mrs. Ramirez is a 70 yo F with PMH of COPD, chronic leg edema (on Torsemide at home ), DM2, RA on Orencia, who presented to ED with c/o cough and dyspnea, found to have COPD exacerbation secondary to pneumonia. Current Medications: - Hydrocodone Bitart/Acetaminophen ([place] 5-325 Tab*) 1 tab PO Q4H PRN PAIN - ARTHRITIS - Albuterol/Ipratropium (Duoneb Neb.Isabel*) 1 neb INH Q4H PRN SOB/WHEEZING - Amlodipine Besylate (Norvasc Tab*) 10 mg PO DAILY [facility] - Diltiazem HCl (Cardizem Cd Cap) 120 mg PO DAILY [facility] - Heparin Sodium (Porcine) (Heparin Vial(*)) 5,000 units SUBCUT Q8HR [facility] - Insulin Glargine (Lantus) 15 units SUBCUT BEDTIME [facility] - Insulin Human Lispro (Humalog) 0 units SUBCUT AC [facility] - Insulin Human Lispro (Humalog*) 0 units SUBCUT AC [facility] - Losartan Potassium (Cozaar Tab) 100 mg PO DAILY [facility] - Methylprednisolone Sodium Succinate (Solu-Medrol*) 60 mg IV 0800, 2000 [facility] - Mometasone Furoate/Formoterol Fumar (Dulera 200/5 Mdi) 2 puff INH BID [facility] - Omeprazole (Prilosec Cap*) 20 mg PO DAILY@0600 [facility] - Polyethylene Glycol/Electrolytes (Miralax) 17 gm PO DAILY [facility] - Potassium Chloride (Klor Con Er Tab) 20 meq PO BID WITH MEALS [facility] - Torsemide (Demadex) 20 mg PO DAILY [facility] - Tramadol HCl (Ultram*) 50 mg PO DAILY [facility] - Patient Problems (1) SVT (supraventricular tachycardia) Current Visit: Yes Status: Acute Priority: High Code(s): I47.1 - SUPRAVENTRICULAR TACHYCARDIA Comment: - Pt had episode of SVT on 07/10/16 walking to the [place], no further episode - Continue PO Cardizem and monitor. (2) Asthma exacerbation Current Visit: Yes Status: Acute Priority: High Code(s): J45.901 - UNSPECIFIED ASTHMA WITH (ACUTE) EXACERBATION Comment: - CxR shows hyperinflation, but she never smoked (her didn't smoke). - CT Chest reviewed and Pulm evaluation appreciated. - Pneumonia in an immunossupressed patient; failed o/p therapy with Levaquin. - Continue steroids and bronchodilators. - Completed Ceftriaxone/Azithromycin course - Check SO2 on RA and with supplemental O2 at rest and with exertion to see if she'll qualify for home O2 at [facility]. - She lives in a 3rd floor apartment in a building without elevator. May need to try stairs in the hospital to see if she's able to get to her home. (3) COPD exacerbation Current Visit: Yes Status: Acute Code(s): J44.1 - CHRONIC OBSTRUCTIVE PULMONARY DISEASE W (ACUTE) EXACERBATION (4) DM type 2 (diabetes mellitus, type 2) Current Visit: Yes Status: Acute Priority: High Comment: - Metformin held. - Increase Lantus and continue Lispro SSI. - Diabetes education consult appreciated (5) DVT prophylaxis Current Visit: Yes Status: Acute Priority: High Code(s): WBC4345 - Comment: - SQ heparin. (6) Elevated lactic acid level Current Visit: Yes Status: Acute Priority: High Code(s): R79.89 - OTHER SPECIFIED ABNORMAL FINDINGS OF BLOOD CHEMISTRY Comment: - Likely associated with metformin and infection. - Trending down. (7) Elevated troponin Current Visit: Yes Status: Acute Priority: High Code(s): R74.8 - ABNORMAL LEVELS OF OTHER SERUM ENZYMES Comment: - Minimally elevated troponin in the setting of infection. - Suspect demand ischemia. - Echo showed EF>65% with no wall motion abnormalities. (8) Full code status Current Visit: Yes Status: Acute Code(s): Z78.9 - OTHER SPECIFIED HEALTH STATUS SNOMED Code(s): 778594130 (9) HTN (hypertension) Current Visit: Yes Status: Acute Code(s): I10 - ESSENTIAL (PRIMARY) HYPERTENSION Comment: - Better controlled - Continue Losartan and Amlodipine. (10) Rheumatoid arthritis Current Visit: Yes Status: Acute Priority: High Code(s): M06.9 - RHEUMATOID ARTHRITIS, UNSPECIFIED Comment: - Recently switched from Actemra to Orencia. She feels she's getting more infections now. got sick first and she thinks she got it from him. Will need to discuss returning to Actemra with Dr. Doshi. (11) Immunosuppression Current Visit: Yes Status: Acute Priority: High Code(s): D89.9 - DISORDER INVOLVING THE IMMUNE MECHANISM, UNSPECIFIED Comment: - For RA treatment Status and Disposition: Inpatient.
[2016-07-14] MEDS: HYDROcodone/ACETAMIN 5-325 MG* 1 TAB PO PRN (20:47)
[2016-07-14] MEDS: Insulin GLARGINE(*) 1 UNITS UNIT SUBCUT SCH (20:48)
[2016-07-15] MEDS: Heparin VIAL(*) 5000 UNITS/ML VIAL (FIVE THOUSAND) SUBCUT SCH ×3 (05:48→23:15)
[2016-07-15] MEDS: Omeprazole CAP* 20 MG PO SCH (05:49)
[2016-07-15 05:51] LABS: Hematocrit 37 % (35-47); Hemoglobin 11.9 g/dl (12.0-16.0); Mean Corpuscular HGB Conc 33 g/dl (31-36); Mean Corpuscular Hemoglobin 29 pg (27-31); Mean Corpuscular Volume 89 fL (80-97); Mean Platelet Volume 8 um3 (7.4-10.4); Red Blood Count 4.11 10^6/ul (4.0-5.4); Red Cell Distribution Width 13 % (10.5-15); White Blood Count 17.4 10^3/ul (3.5-10.8)
[2016-07-15 05:53] LABS: Add Diff/Slide Review? Slide Review Added; Comments Flag Yes
[2016-07-15 06:11] LABS: BUN/Creatinine Ratio 42.9 (8-20); Calcium 8.8 mg/dL (8.6-10.3); EGFR African American 86.5 (>60); EGFR Non-African American 67.2 (>60)
[2016-07-15 06:41] LABS: Eosinophils % 1 % (0-6); Immature Granulocytes 4 % (0-9); Metamyelocytes % 1 % (0-2); Myelocytes % 2 % (0-1); Neutrophil % 83 % (38-83)
[2016-07-15 06:42] LABS: RBC Morphology Normal (Normal)
[2016-07-15] MEDS: Potassium Chlor TAB* 20 MEQ TAB.ER PO SCH ×2 (07:30→16:17)
[2016-07-15] MEDS: methylPREDNISolone SOD SUCC* 125 MG 2 ML VIAL IV SCH ×2 (07:30→23:15)
[2016-07-15] MEDS: Insulin LISPRO* 1 UNITS UNIT SUBCUT SCH ×6 (08:16→17:52)
[2016-07-15] MEDS: Torsemide TAB* 20 MG PO SCH (08:17)
[2016-07-15] MEDS: traMADol TAB* 50 MG PO SCH (08:18)
[2016-07-15] MEDS: amLODIPine TAB* 5 MG PO SCH (08:18)
[2016-07-15] MEDS: Diltiazem CD CAP* 120 MG PO SCH (08:19)
[2016-07-15] MEDS: Polyethylene Glycol 3350* 17 GM PACKET PO SCH (08:19)
[2016-07-15] MEDS: Losartan TAB* 25 MG PO SCH (08:25)
[2016-07-15] MEDS: Mometasone/Formoter 200/5 MDI INH SCH ×2 (08:56→20:02)
[2016-07-15] MEDS ORDERED: methylPREDNISolone SOD SUCC* 40 MG/ML VIAL IV ONE (11:51)
--- NOTE | 2016-07-15 12:15 | PN ---
Progress Note - Progress Note Note: Pulm consult f/u note 07/15/16. Pt seen and examined at bedside. Pt reports feeling slightly better today, is dyspneic with minimal exertion. Feels wheeze is improved. Active Medications Generic Name Dose Route Start Last Admin Trade Name Freq PRN Reason Stop Dose Admin Hydrocodone Bitart/Acetaminophen 1 tab 07/08/16 20:59 07/14/16 20:47 [place] 5-325 Tab* PO 1 tab Q4H PRN Administration PAIN - ARTHRITIS Albuterol/Ipratropium 1 neb 07/08/16 19:51 07/12/16 08:00 Duoneb Neb.Isabel* INH 1 neb Q4H PRN Administration SOB/WHEEZING Amlodipine Besylate 10 mg 07/09/16 13:26 07/15/16 08:18 Norvasc Tab* PO 10 mg DAILY [facility] Administration Dextrose 12.5 gm 07/08/16 19:55 D50w Syringe 50 Ml* IV PUSH .FOR FS < 60 - SS PRN FS < 60 Diltiazem HCl 120 mg 07/11/16 09:00 07/15/16 08:19 Cardizem Cd Cap* PO 120 mg DAILY [facility] Administration Heparin Sodium (Porcine) 5,000 units 07/08/16 22:00 07/15/16 05:48 Heparin Vial(*) SUBCUT 5,000 units Q8HR [facility] Administration Insulin Glargine 15 units 07/13/16 21:00 07/14/16 20:48 Lantus(*) SUBCUT 15 unit BEDTIME [facility] Administration Insulin Human Lispro 0 units 07/10/16 16:30 07/15/16 09:07 Humalog* SUBCUT 5 units AC [facility] Administration Protocol Insulin Human Lispro 0 units 07/10/16 16:25 07/15/16 11:36 Humalog* SUBCUT 12 units AC [facility] Administration Protocol Losartan Potassium 100 mg 07/09/16 09:00 07/15/16 08:25 Cozaar Tab* PO 100 mg DAILY [facility] Administration Methylprednisolone Sodium Succinate 60 mg 07/11/16 21:00 07/15/16 07:30 Solu-Medrol* IV 60 mg 0800,2000 [facility] Administration Mometasone Furoate/Formoterol Fumar 2 puff 07/10/16 21:00 07/15/16 08:56 Dulera 200/5 Mdi* INH 2 puff BID [facility] Administration Omeprazole 20 mg 07/15/16 06:00 07/15/16 05:49 Prilosec Cap* PO 20 mg DAILY@0600 [facility] Administration Polyethylene Glycol/Electrolytes 17 gm 07/09/16 09:00 07/15/16 08:19 Miralax* PO 17 gm DAILY [facility] Administration Potassium Chloride 20 meq 07/12/16 21:00 07/15/16 07:30 Klor Con Er Tab* PO 20 meq BID WITH MEALS [facility] Administration Torsemide 20 mg 07/10/16 09:00 07/15/16 08:17 Demadex* PO 20 mg DAILY [facility] Administration Tramadol HCl 50 mg 07/09/16 09:00 07/15/16 08:18 Ultram* PO 50 mg DAILY [facility] Administration Vital Signs Temp Pulse Resp BP Pulse Ox 97.3 F 99 18 157/83 97 07/15/16 07:21 07/15/16 09:01 07/15/16 10:18 07/15/16 07:21 07/15/16 09:01 Gen: Pleasant elderly lady sitting up in bed in NAD. HEENT: No Scleral Icterus, Mucous Membranes Moist Neck: Trachea Midline Respiratory: Symmetrical Chest Expansion and Respiratory Effort, BS+ bilaterally , scaterred rhonchi Cardiovascular: RRR, Normal S1 and S2 Abdominal: NL Sounds; No Tenderness; No Distention Extremities: Bilateral LE mild edema Neurological: Alert and Oriented x 3, NL Muscle Strength and Tone Laboratory Results - last 24 hr 07/14/16 07/15/16 07/15/16 16:41 04:53 04:53 WBC 17.4 H RBC 4.11 Hgb 11.9 L Hct 37 MCV 89 MCH 29 MCHC 33 RDW 13 Plt Count 396 MPV 8 Immature Gran % (Auto) 4 Neut % (Auto) 87.3 H Lymph % (Auto) 7.7 L [place] % (Auto) 4.7 Eos % (Auto) 0 Baso % (Auto) 0.3 Absolute Neuts (auto) 15.2 H Absolute Lymphs (auto) 1.3 Absolute Monos (auto) 0.8 Absolute Eos (auto) 0 Absolute Basos (auto) 0.1 Absolute Nucleated RBC 0.01 Neutrophils % 83 Band Neutrophils % 1 Lymphocytes % 8 L Monocytes % 4 Eosinophils % 1 Metamyelocytes % 1 Myelocytes % 2 H Nucleated RBC % 0 Normal RBC Morphology Normal Sodium 137 Potassium 4.0 Chloride 100 L Carbon Dioxide 28 Anion Gap 9 BUN 36 H Creatinine 0.84 Est GFR ( Amer) 86.5 Est GFR (Non-Af Amer) 67.2 BUN/Creatinine Ratio 42.9 H Glucose 210 H POC Glucose (mg/dL) 128 H Calcium 8.8 07/15/16 07/15/16 08:08 11:14 WBC RBC Hgb Hct MCV MCH MCHC RDW Plt Count MPV Immature Gran % (Auto) Neut % (Auto) Lymph % (Auto) [place] % (Auto) Eos % (Auto) Baso % (Auto) Absolute Neuts (auto) Absolute Lymphs (auto) Absolute Monos (auto) Absolute Eos (auto) Absolute Basos (auto) Absolute Nucleated RBC Neutrophils % Band Neutrophils % Lymphocytes % Monocytes % Eosinophils % Metamyelocytes % Myelocytes % Nucleated RBC % Normal RBC Morphology Sodium Potassium Chloride Carbon Dioxide Anion Gap BUN Creatinine Est GFR ( Amer) Est GFR (Non-Af Amer) BUN/Creatinine Ratio Glucose POC Glucose (mg/dL) 199 H 301 H Calcium I/R: Pt is a 70 yo F with PMH of COPD likely secondary to poorly controlled asthma, DM2, RA on Orencia, who presented to ED with c/o cough and dyspnea, found to have COPD exacerbation secondary to pneumonia. No evidence of emphysema on CT chest Hyperinflation likely secondary to fixed obstruction from poorly controlled underlying asthma No evidence of significant PNA on CT chest - Steroids, c/w bronchodilators. pt will need cardiac evaluation as out pt c/w PPI Overnight oximetry suggestive of hypoxia likely from sleep apnea Will need sl study as out pt
[2016-07-15] MEDS: Insulin GLARGINE(*) 1 UNITS UNIT SUBCUT SCH (21:53)
[2016-07-16] MEDS: HYDROcodone/ACETAMIN 5-325 MG* 1 TAB PO PRN (00:14)
[2016-07-16] MEDS: Heparin VIAL(*) 5000 UNITS/ML VIAL (FIVE THOUSAND) SUBCUT SCH (05:31)
[2016-07-16] MEDS: Omeprazole CAP* 20 MG PO SCH (05:32)
[2016-07-16] MEDS: Mometasone/Formoter 200/5 MDI INH SCH (08:12)
[2016-07-16] MEDS: Insulin LISPRO* 1 UNITS UNIT SUBCUT SCH ×4 (10:06→13:19)
--- NOTE | 2016-07-16 10:06 | PN ---
Progress Note - Progress Note Note: Pulm consult f/u note 07/16/16. Pt seen and examined at bedside. Pt reports feeling better today. Feels wheeze is improved. Active Medications Generic Name Dose Route Start Last Admin Trade Name Freq PRN Reason Stop Dose Admin Hydrocodone Bitart/Acetaminophen 1 tab 07/08/16 20:59 07/16/16 00:14 [place] 5-325 Tab* PO 1 tab Q4H PRN Administration PAIN - ARTHRITIS Albuterol/Ipratropium 1 neb 07/08/16 19:51 07/12/16 08:00 Duoneb Neb.Isabel* INH 1 neb Q4H PRN Administration SOB/WHEEZING Amlodipine Besylate 10 mg 07/09/16 13:26 07/15/16 08:18 Norvasc Tab* PO 10 mg DAILY [facility] Administration Dextrose 12.5 gm 07/08/16 19:55 D50w Syringe 50 Ml* IV PUSH .FOR FS < 60 - SS PRN FS < 60 Diltiazem HCl 120 mg 07/11/16 09:00 07/15/16 08:19 Cardizem Cd Cap* PO 120 mg DAILY [facility] Administration Heparin Sodium (Porcine) 5,000 units 07/08/16 22:00 07/16/16 05:31 Heparin Vial(*) SUBCUT 5,000 units Q8HR [facility] Administration Insulin Glargine 15 units 07/13/16 21:00 07/15/16 21:53 Lantus(*) SUBCUT 15 unit BEDTIME [facility] Administration Insulin Human Lispro 0 units 07/10/16 16:30 07/15/16 17:52 Humalog* SUBCUT 7 units AC [facility] Administration Protocol Insulin Human Lispro 0 units 07/10/16 16:25 07/15/16 16:32 Humalog* SUBCUT 6 units AC [facility] Administration Protocol Losartan Potassium 100 mg 07/09/16 09:00 07/15/16 08:25 Cozaar Tab* PO 100 mg DAILY [facility] Administration Methylprednisolone Sodium Succinate 60 mg 07/11/16 21:00 07/15/16 23:15 Solu-Medrol* IV 60 mg 0800,2000 [facility] Administration Mometasone Furoate/Formoterol Fumar 2 puff 07/10/16 21:00 07/16/16 08:12 Dulera 200/5 Mdi* INH 2 puff BID [facility] Administration Omeprazole 20 mg 07/15/16 06:00 07/16/16 05:32 Prilosec Cap* PO 20 mg DAILY@0600 [facility] Administration Polyethylene Glycol/Electrolytes 17 gm 07/09/16 09:00 07/15/16 08:19 Miralax* PO 17 gm DAILY [facility] Administration Potassium Chloride 20 meq 07/12/16 21:00 07/15/16 16:17 Klor Con Er Tab* PO 20 meq BID WITH MEALS [facility] Administration Torsemide 20 mg 07/10/16 09:00 07/15/16 08:17 Demadex* PO 20 mg DAILY [facility] Administration Tramadol HCl 50 mg 07/09/16 09:00 07/15/16 08:18 Ultram* PO 50 mg DAILY [facility] Administration Vital Signs Temp Pulse Resp BP Pulse Ox 97.4 F 90 18 142/70 97 07/16/16 07:25 07/16/16 08:51 07/16/16 08:51 07/16/16 07:25 07/16/16 08:51 Gen: Pleasant elderly lady sitting up in bed in [facility]. HEENT: No Scleral Icterus, Mucous Membranes Moist Neck: Trachea Midline Respiratory: Symmetrical Chest Expansion and Respiratory Effort, BS+ bilaterally , scaterred rhonchi Cardiovascular: RRR, Normal S1 and S2 Abdominal: NL Sounds; No Tenderness; No Distention Extremities: Bilateral LE mild edema Neurological: Alert and Oriented x 3, NL Muscle Strength and Tone Laboratory Results - last 24 hr 07/14/16 07/15/16 07/15/16 16:41 04:53 04:53 WBC 17.4 H RBC 4.11 Hgb 11.9 L Hct 37 MCV 89 MCH 29 MCHC 33 RDW 13 Plt Count 396 MPV 8 Immature Gran % (Auto) 4 Neut % (Auto) 87.3 H Lymph % (Auto) 7.7 L [place] % (Auto) 4.7 Eos % (Auto) 0 Baso % (Auto) 0.3 Absolute Neuts (auto) 15.2 H Absolute Lymphs (auto) 1.3 Absolute Monos (auto) 0.8 Absolute Eos (auto) 0 Absolute Basos (auto) 0.1 Absolute Nucleated RBC 0.01 Neutrophils % 83 Band Neutrophils % 1 Lymphocytes % 8 L Monocytes % 4 Eosinophils % 1 Metamyelocytes % 1 Myelocytes % 2 H Nucleated RBC % 0 Normal RBC Morphology Normal Sodium 137 Potassium 4.0 Chloride 100 L Carbon Dioxide 28 Anion Gap 9 BUN 36 H Creatinine 0.84 Est GFR ( Amer) 86.5 Est GFR (Non-Af Amer) 67.2 BUN/Creatinine Ratio 42.9 H Glucose 210 H POC Glucose (mg/dL) 128 H Calcium 8.8 07/15/16 07/15/16 08:08 11:14 WBC RBC Hgb Hct MCV MCH MCHC RDW Plt Count MPV Immature Gran % (Auto) Neut % (Auto) Lymph % (Auto) [place] % (Auto) Eos % (Auto) Baso % (Auto) Absolute Neuts (auto) Absolute Lymphs (auto) Absolute Monos (auto) Absolute Eos (auto) Absolute Basos (auto) Absolute Nucleated RBC Neutrophils % Band Neutrophils % Lymphocytes % Monocytes % Eosinophils % Metamyelocytes % Myelocytes % Nucleated RBC % Normal RBC Morphology Sodium Potassium Chloride Carbon Dioxide Anion Gap BUN Creatinine Est GFR ( Amer) Est GFR (Non-Af Amer) BUN/Creatinine Ratio Glucose POC Glucose (mg/dL) 199 H 301 H Calcium I/R: Pt is a 70 yo F with PMH of COPD likely secondary to poorly controlled asthma, DM2, RA on Orencia, who presented to ED with c/o cough and dyspnea, found to have COPD exacerbation secondary to pneumonia. No evidence of emphysema on CT chest Hyperinflation likely secondary to fixed obstruction from poorly controlled underlying asthma No evidence of significant PNA on CT chest - Steroids, c/w bronchodilators. pt will need cardiac evaluation as out pt c/w PPI Overnight oximetry suggestive of hypoxia likely from sleep apnea Will need sl study as out pt For possible d/c today, prednisone taper Pt will need O2 with exertion and at night
[2016-07-16] MEDS: methylPREDNISolone SOD SUCC* 125 MG 2 ML VIAL IV SCH (10:08)
[2016-07-16] MEDS: traMADol TAB* 50 MG PO SCH (10:09)
[2016-07-16] MEDS: amLODIPine TAB* 5 MG PO SCH (10:09)
[2016-07-16] MEDS: Torsemide TAB* 20 MG PO SCH (10:09)
[2016-07-16] MEDS: Potassium Chlor TAB* 20 MEQ TAB.ER PO SCH (10:09)
[2016-07-16] MEDS: Losartan TAB* 25 MG PO SCH (10:09)
[2016-07-16] MEDS: Polyethylene Glycol 3350* 17 GM PACKET PO SCH (10:10)
[2016-07-16] MEDS: Diltiazem CD CAP* 120 MG PO SCH (10:10)
[2016-07-16 12:51] VITALS: BP 152/67
--- NOTE | 2016-07-18 13:41 | PN ---
Subjective Date of Service: 07/15/16 Interval History: no new c/o still sob with limitation in exercise tolerance states she needs one more day in the hospital to be comfortable with discharge. Family History: Unchanged from Admission Social History: Unchanged from Admission Past Medical History: Unchanged from Admission Objective Active Medications: see MAR 07/15/16 VSS on 07/15/16 Oxygen Devices in Use Now: Nasal Cannula - at 2 l Appearance: NAD; obese Ears/Nose/Mouth/Throat: Clear Oropharnyx Neck: Trachea Midline Respiratory: Symmetrical Chest Expansion and Respiratory Effort Cardiovascular: RRR Abdominal: No Hepatosplenomegaly Lymphatic: No Cervical Adenopathy Extremities: No Edema Skin: No Rash or Ulcers Neurological: Alert and Oriented x 3 Lines/Tubes/Other Access: Clean, Dry and Intact Peripheral IV Nutrition: Taking PO's Result Diagrams: 07/15/16 04:53 07/15/16 04:53 Additional Lab and Data: . Microbiology and Other Data: Microbiology 07/08/16 22:47 Legionella Urinary Antigen - Final Urine Negative Legionella Streptococcus pneumoniae Ag Screen - Final Negative S. pneumo Antigen Assess/Plan/Problems-Billing . Assessment: Mrs. Ramirez is a 70 yo F with PMH of COPD, chronic leg edema (on Torsemide at home ), DM2, RA on Orencia, who presented to ED with c/o cough and dyspnea, found to have COPD exacerbation secondary to pneumonia. Current Medications: - Hydrocodone Bitart/Acetaminophen ([place] 5-325 Tab*) 1 tab PO Q4H PRN PAIN - ARTHRITIS - Albuterol/Ipratropium (Duoneb Neb.Isabel*) 1 neb INH Q4H PRN SOB/WHEEZING - Amlodipine Besylate (Norvasc Tab*) 10 mg PO DAILY [facility] - Diltiazem HCl (Cardizem Cd Cap) 120 mg PO DAILY [facility] - Heparin Sodium (Porcine) (Heparin Vial(*)) 5,000 units SUBCUT Q8HR [facility] - Insulin Glargine (Lantus) 15 units SUBCUT BEDTIME [facility] - Insulin Human Lispro (Humalog) 0 units SUBCUT AC [facility] - Insulin Human Lispro (Humalog*) 0 units SUBCUT AC [facility] - Losartan Potassium (Cozaar Tab) 100 mg PO DAILY [facility] - Methylprednisolone Sodium Succinate (Solu-Medrol*) 60 mg IV 0800, 2000 [facility] - Mometasone Furoate/Formoterol Fumar (Dulera 200/5 Mdi) 2 puff INH BID [facility] - Omeprazole (Prilosec Cap*) 20 mg PO DAILY@0600 [facility] - Polyethylene Glycol/Electrolytes (Miralax) 17 gm PO DAILY [facility] - Potassium Chloride (Klor Con Er Tab) 20 meq PO BID WITH MEALS [facility] - Torsemide (Demadex) 20 mg PO DAILY [facility] - Tramadol HCl (Ultram*) 50 mg PO DAILY [facility] - Patient Problems (1) SVT (supraventricular tachycardia) Status: Acute Priority: High Code(s): I47.1 - SUPRAVENTRICULAR TACHYCARDIA Comment: - Pt had episode of SVT on 07/10/16 walking to the [place], no further episode - Continue PO Cardizem and monitor. (2) Asthma exacerbation Status: Acute Priority: High Code(s): J45.901 - UNSPECIFIED ASTHMA WITH ( ACUTE) EXACERBATION Comment: - CxR shows hyperinflation, but she never smoked (her didn't smoke). - CT Chest reviewed and Pulm evaluation appreciated. - Pneumonia in an immunossupressed patient; failed o/p therapy with Levaquin. - Continue steroids and bronchodilators. - Completed Ceftriaxone/Azithromycin course - Check SO2 on RA and with supplemental O2 at rest and with exertion to see if she'll qualify for home O2 at [place]. - She lives in a 3rd floor apartment in a building without elevator. May need to try stairs in the hospital to see if she's able to get to her home. (3) COPD exacerbation Status: Acute Code(s): J44.1 - CHRONIC OBSTRUCTIVE PULMONARY DISEASE W (ACUTE ) EXACERBATION (4) DM type 2 (diabetes mellitus, type 2) Status: Acute Priority: High Comment: - Metformin held. - Increase Lantus and continue Lispro SSI. - Diabetes education consult appreciated (5) DVT prophylaxis Status: Acute Priority: High Code(s): FOG4704 - Comment: - SQ heparin. (6) Elevated lactic acid level Status: Acute Priority: High Code(s): R79.89 - OTHER SPECIFIED ABNORMAL FINDINGS OF BLOOD CHEMISTRY Comment: - Likely associated with metformin and infection. - Trending down. (7) Elevated troponin Status: Acute Priority: High Code(s): R74.8 - ABNORMAL LEVELS OF OTHER SERUM ENZYMES Comment: - Minimally elevated troponin in the setting of infection. - Suspect demand ischemia. - Echo showed EF>65% with no wall motion abnormalities. (8) Full code status Status: Acute Code(s): Z78.9 - OTHER SPECIFIED HEALTH STATUS SNOMED Code(s) : 529168001 (9) HTN (hypertension) Status: Acute Code(s): I10 - ESSENTIAL (PRIMARY) HYPERTENSION Comment: - Better controlled - Continue Losartan and Amlodipine. (10) Rheumatoid arthritis Status: Acute Priority: High Code(s): M06.9 - RHEUMATOID ARTHRITIS, UNSPECIFIED Comment: - Recently switched from Actemra to Orencia. She feels she's getting more infections now. got sick first and she thinks she got it from him. Will need to discuss returning to Actemra with Dr. Doshi. (11) Immunosuppression Status: Acute Priority: High Code(s): D89.9 - DISORDER INVOLVING THE IMMUNE MECHANISM, UNSPECIFIED Comment: - For RA treatment Status and Disposition: Inpatient.
--- NOTE | 2016-07-18 13:42 | PN ---
Hospitalist Progress Note . HOSPITALIST DISCHARGE NOTE: See dc instructions and summary by me. Patient stable for dc dc instructions reviewed with the patient at the bedside. DC patient home today.
--- NOTE | 2016-07-19 04:21 | DS ---
DISCHARGE SUMMARY: DATE OF ADMISSION: 07/08/16 DATE OF DISCHARGE: 07/16/16 PRIMARY CARE PROVIDER: Dr. Jennifer Canales. CONSULTED [facility] LEAD: Dr. Dianne Lindsay. STATUS DURING HOSPITALIZATION: Inpatient. PRINCIPAL DISCHARGE DIAGNOSIS: Chronic obstructive pulmonary disease exacerbation secondary to viral infection with resultant bronchitis and sepsis. SECONDARY DIAGNOSES: 1. Chronic obstructive pulmonary disease secondary to underlying poorly controlled asthma. 2. Hypertension. 3. Type 2 diabetes. 4. Likely obstructive sleep apnea. 5. Morbid obesity. DISCHARGE MEDICATION REGIMEN: Prescribed: Prednisone 10 mg tablets - 30 prescribed - taper over 10 days starting at 50 mg and decrease by 10 mg every 2 days. Continue: 1. Polyethylene glycol 17 g by mouth daily. 2. Tramadol 50 mg by mouth daily. 3. Fluticasone nasal spray 50 mcg strength, 1 spray both nares every day. 4. Amlodipine 5 mg by mouth daily. 5. Losartan 100 mg by mouth daily. 6. Fexofenadine 180 mg by mouth daily. 7. Clobetasol 0.5% strength, applied to skin areas twice daily as needed. 8. Lactic acid/ammonium lactate 1 application topically daily. 9. Fluticasone/salmeterol 500/50 strength 1 puff twice daily. 10. Acetaminophen 500 mg by mouth 3 times daily. 11. Hydrocodone/acetaminophen 5/325 mg strength 1 tab every 4 hours as needed for pain. 12. Abatacept/Orencia 250 mg IV as per outpatient Rheumatology instruction. 1. Stop levofloxacin course that was active at admission. 2. Stop previous steroid prescription. HISTORY OF PRESENT ILLNESS/HOSPITAL COURSE: Please see the H and P by Radha Juarez NP, under the supervision of Dr. Marcus Clemente on 07/08/16. In brief , Ms. Ramirez is a 70-year-old female with past medical history of COPD, hypertension, and diabetes, who came to the hospital with worsening shortness of breath and dyspnea on exertion. She was feeling unwell several days earlier with wheezing and cough. She had a fever to 101.4 degrees [address] She saw Dr. Canales, who started her on Levaquin and prednisone. She initially felt better but then relapsed and started feeling "terrible." The patient had a difficult time sleeping and had a nonproductive cough and was audibly wheezing. She came to the emergency room and had an elevated lactic acid of 3 and white blood cell count in the mid teens, but her vitals showed tachycardia and was tachypneic. The patient was afebrile in the emergency room, but she reported fever at home. The chest x-ray was clear and so was a subsequent CTA that was evaluating also the possibility of pulmonary embolism. Obviously, there was no pulmonary embolism and her airspace disease was limited leading the team to believe and diagnose her with a viral bronchitis and subsequent COPD versus asthma exacerbation. The patient was treated with steroids. She was very limited, she took several days to recover sufficiently to navigate her home which includes 3 flights of stairs to get to her living space. The patient was stable on the day of discharge. I had a long conversation with the patient's , then her. She will need a sleep study in the outpatient setting if she does likely have sleep apnea. The patient is continuing on the steroid taper and will follow up with Dr. Canales in the outpatient setting. If she has any worsening symptoms, she can come back to the emergency room, then I explained this to both the patient and her , and they agreed and agreed to comply. TIME SPENT: Total time taken to discharge Ms. Ramirez was 45 minutes; greater than half the time was spent going over the discharge instructions [id number] with the family at the bedside. CC: Dr. Jennifer Canales; Dr. Dianne Lindsay* [id number]/[facility] [place] #: [id number] MTDD
== END 2016-07-16 15:18 | disposition home health service (06) | DRG 872 ==
LOC: ED 16:38 → MEDTELE 19:50
PROVIDERS: ADMIT Hospitalist; ATTEND Internal Medicine
DX: A41.89 Other specified sepsis (principal); E87.2 Acidosis; I24.8 Other forms of acute ischemic heart disease; E66.01 Morbid (severe) obesity due to excess calories; J44.0 Chronic obstructive pulmonary disease with (acute) lower respiratory infection; J44.1 Chronic obstructive pulmonary disease with (acute) exacerbation; I47.1 Supraventricular tachycardia; J20.8 Acute bronchitis due to other specified organisms; B97.89 Other viral agents as the cause of diseases classified elsewhere; I10 Essential (primary) hypertension; E11.9 Type 2 diabetes mellitus without complications; M06.9 Rheumatoid arthritis, unspecified; E87.6 Hypokalemia; R60.0 Localized edema; G47.33 Obstructive sleep apnea (adult) (pediatric); Z68.37 Body mass index [BMI] 37.0-37.9, adult; Z79.84 Long term (current) use of oral hypoglycemic drugs
CPT/HCPCS: 36415; 71020; 71250; 80048; 80053; 81003; 82550; 82553; 83605; 83735; 83880; 84484; 85025; 86140; 87040; 87502; 87807; 87899; 93005; 93306; 94640; 94760; 94762; 99252; A9270-GY; J0456; J0692; J0696; J1644; J1940; J2920; J2930; J3370; J3475

== ENCOUNTER 2019-03-05 16:25 | Emergency (ER) | payer MEDICARE ==
--- OUTSIDE RECORDS SUMMARY | 2019-03-05 17:12 | XMS REPORT | Continuity of Care Document ---
:1945 External Reference #:[id number] Author Name Jennifer Canales M.D. (transmitted by agent of provider Mayra Florentino) Address [address], [place] [address] Care Team Providers Name Role Phone Jennifer Canales MD - Internal Care Team Information Plant Anatomy Teacher Medicine Heriberto Doshi MD - Rheumatology Care Team Information Plant Anatomy Teacher Brent Albrecht MD - Infectious Care Team Information Plant Anatomy Teacher Disease Stepan Sloan MD - Otolaryngology Care Team Information Plant Anatomy Teacher [phone] Problems Active Problems Provider Date Rheumatoid arthritis Jennifer Canales M.D. Onset: 07/28/2011 Type 2 diabetes mellitus Jennifer Canales M.D. Onset: 06/05/2009 Diabetic retinopathy Jennifer Canales M.D. Onset: 08/18/2013 Sleep apnea Jennifer Canales M.D. Onset: 06/05/2009 Asthma without status asthmaticus Jennifer Canales M.D. Onset: 06/05/2009 Gout Jennifer Canales M.D. 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 Onset: 05/23/2014 Referred otalgia Reilly Myers M.D. Onset: 06/06/2014 Essential hypertension Jennifer Canales M.D. 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 MARTINA Anderson Onset: 03/14/2015 Chronic obstructive lung disease Dianne Lindsay MD Onset: 12/30/2016 Social History Type Date Description Comments Sex Unknown Tobacco Use Start: Unknown Never Smoked Cigarettes ETOH Use Denies alcohol use Tobacco Use Start: Unknown Patient has never smoked Smoking Status Reviewed: 03/05/19 Patient has never smoked Allergies, Adverse Reactions, Alerts Active Allergies Reaction Severity Comments Date Seasonal 12/30/2016 Kevzara rash 01/31/2018 Gabapentin hallucinations 02/20/2018 Sulfasalazine itching 06/22/2018 Inactive Allergies No Known Drug Allergy 06/17/2009 Medications Active Medications SIG Qnty Indications Ordering Date Provider Prednisone take 4 tabs by 120tabs Heriberto Doshi, 02/15/20 10mg Tablets mouth daily for 2 M.D. 19 days then 3 tabs daily for 2 days then 2 tabs for 2 days then 1 tab daily Oxygen 2 l/min at night Jennifer 02/15/20 Misc Pia Canales 19 Rinvoq Take One Tablet By 30tabs Heriberto Doshi, 01/26/20 15mg Tablets ER 24HR Mouth Every Day M.D. 19 (03/05/19:On Hold) Fast Acting B12 sublingual daily 90tabs Herbierto Doshi, 11/06/19 2500mcg M.D. 19 Tablets Sub Hydroxyzine HCL take 1 tablet by 60tabs Heriberto Doshi, 10/03/19 25mg mouth every 8 hours M.D. 19 Tablets as needed for itching (11/06/17: not taking) Ketoconazole apply thin film 60gm M54.2 Jennifer 01/26/20 2% Cream twice daily Pia Canales 17 Hydroxychloroquine Take 2 Tablets By 180tabs Z79.899 Heriberto Doshi, Sulfate Mouth Every Day M.D. 17 200mg Tablets (03/05/19: On Hold) Metformin HCL 1 by mouth every 90tabs E11.9 Jennifer 10/12/19 500mg Tablets day (03/05/19: On Pia Canales 17 Hold) Advair Diskus inhale one puff by 180units J45.50 Jennifer 09/24/19 mouth twice daily Pia Canales 17 500-50mcg/Dose Aerosol Torsemide 2 by mouth every 60tabs I10 Jennifer 08/14/19 20mg Tablets day (03/05/19: On Pia Canales 17 Hold) Hydrocodone-Acetaminoph 1 by mouth 2-3 90tabs [facility] 05/06/19 en times a day as Pia Canales 17 5-325mg Tablets needed Compression Stockings please use daily as 2units Heriberto Doshi, 03/17/20 Misc needed for edema M.DAngelo 16 BD 1ML for use weekly with 90units Heriberto Doshi, 02/17/20 Syringe/Needle/Slip sc methotrexate M.D. 16 Tip/Subq/26G X 5/8" 26G X 58" 1 ML Misc Clotrimazole 1 by mouth 5 times 140units B37.9 [facility] 01/15/20 10mg Josh daily as needed Pia Canales 16 Miralax 17 gm every day 510units R10.32 [facility] 12/15/19 3350NF Powder mixed w/ 8 oz Pia Canales 16 water/juice as needed for constipation T.E.DAngelo Anti-Embolism for daily use 1Pair R60.0 [facility] 08/05/19 Stockings Knee Length Pia Canales 16 15-20mm HG Mis Flonase Allergy Relief use one spray in 48units [facility] 01/22/20 each nostril daily Pia Canales 15 50mcg/Act Suspension as needed-uses daily Albuterol Sulfate 1 vial via 100units J45.901 [facility] 09/07/19 nebulizer 4 times Pia Canales 14 (2.5mg/3ML) 0.083% daily as needed Nebulizer Walker, 2 Wheels, With for daily use [facility] 08/22/19 Glides For Back Posts Pia Canales 14 Misc Acetaminophen 1 by mouth four Jennifer 11/21/19 500mg Tablets times a day-takes 1 Pia Canales 13 po bid routinely Wrist Brace/Left for use at night M79.603 [facility] 08/16/19 Misc and as needed Pia Canales 13 Freestyle Lite Test use as directed 100units [facility] 09/24/19 Strip twice daily or as Pia Canales 12 needed dx: 250.02 Blood Pressure Arm Cuff code: 401.1 1units Jennifer 07/28/19 Medium Pia Canales 12 [facility] Wheelchair 1units 715.16 Jennifer 06/25/19 [facility] [place] Pia Canales 12 Blood Pressure Monitor, 1units Jennifer 03/11/20 Large Cuff Pia Canales 11 [facility] [place] [facility] Walker With Basket dx: severe 1units Jennifer 02/13/20 [facility] [place] osteoarthritis of Pia Canales 11 knee Freestyle Lancets use as directed 100units Jennifer 04/15/20 [facility] [place] Pia Canales 10 Losartan Potassium take one tablet by 90tabs I10 [facility] 02/17/20 100mg mouth one time Pia Canales 10 Tablets daily Tramadol HCL take 1 to 2 tablets 120tabs Jennifer 11/17/19 50mg Tablets by mouth every 6 Pia Canales 10 hours as needed for pain max 6/day Multi Vitamin Daily 1 by mouth twice a Unknown week 00 Tablets History Medications Prednisone Take 1 Tablet By 30tabs Heriberto Doshi, 02/10/2019 - 5mg Mouth Every Day as M.DAngelo 02/14/2019 Tablets Needed For A Flare Of Rheumatoid Arthritis Prednisone 1 by mouth every day 30tabs Heriberto Doshi, 01/22/2019 - 20mg M.D. 01/25/2019 Tablets Humira 40mg sq every 2 2units Heriberto Doshi, 11/30/2018 - 40mg/0.4ML weeks, citrate free M.DAngelo 01/25/2019 PSKT formulation, stop Cimzia Medications Administered in Office Medication SIG Qnty Indications Ordering Provider Date Uche Or Titus Ramirez M.D. 06/09/2011 JeremiahOrthovisbijal,For Intra-Articular Inj Per Dose Injection Hyaluron Or Titus Ramirez M.D. 06/03/2011 JeremiahOrthovisbijalFor Intra-Articular Inj Per Dose Injection Hyaluron Or Titus Ramirez M.D. 05/27/2011 JeremiahOrthovisbijal,For Intra-Articular Inj Per Dose Injection Depomedrol 80MG Titus Ramirez M.D. 03/30/2011 Injection Depomedrol 80MG Titus Ramirez M.D. 02/23/2011 Injection Immunizations CPT Code Status Date Vaccine Lot # [id number] Given 02/09/2019 Influenza Virus Vaccine, Quadrivalent, Split, Preservative Free 66769 Given 01/11/2018 Influenza Virus Vaccine, Quadrivalent, Split, Preservative Free 28383 Given 01/10/2017 Influenza Virus Vaccine, Quadrivalent, Split, [id number] Preservative Free 45061 Given 01/15/2016 Influenza Virus Vaccine, Quadrivalent, Split, [id number] Preservative Free 12096 Given 02/28/2015 Influenza Virus Vaccine, Quadrivalent, Split, [id number] Preservative Free 32076 Given 02/21/2014 Pneumococcal Conjugate Vaccine 13 Valent For [id number] Intramuscular Use 92432 Given 02/21/2014 Flu Vaccine Split Virus Preservative Free For [id number] Indiv 3Yr Older 01481 Given 02/16/2013 Flu Vaccine Split Virus Preservative Free For [id number] Indiv 3Yr Older 54855 Given 04/04/2012 Tdap - Tetanus/Diptheria/Acellular Pertussis [id number] Q2038 Given 02/08/2012 Fluzone Vaccine [id number] 09238 Given 11/23/2011 Pneumonia Vaccine [id number] 13049 Given 02/08/2011 Influenza Virus 3Yrs & Over [id number] 58852 Given 02/04/2010 Influenza Virus 3Yrs & Over 47610 Given 04/10/2009 Influenza Virus Vaccine, Pandemic Formulation 81409 Given 04/10/2009 Administration Swine Flu Shot 83335 Given 01/28/2009 Influenza Virus 3Yrs & Over 69165 Given 03/26/2002 Tetanus And Diptheria (Td) For Adult Use Preservative Free Vital Signs Date Vital Result Comment 03/05/2019 2:50pm Height 60.5 inches 5'0.50" Weight 213.00 lb Heart Rate 88 /min BP Systolic 176 mmHg BP Diastolic 83 mmHg BP Systolic Sitting 160 mmHg recheck BP Diastolic Sitting 82 mmHg recheck Body Temperature 99.0 F O2 % BldC Oximetry 94 % BMI (Body Mass Index) 40.9 kg/m2 01/25/2019 1:47pm Height 60.5 inches 5'0.50" Weight 207.25 lb Heart Rate 92 /min BP Systolic 138 mmHg BP Diastolic 86 mmHg Pain Level 6 O2 % BldC Oximetry 98 % BMI (Body Mass Index) 39.8 kg/m2 Results Test Acquired Date Facility Test Result H/L Range Note Laboratory test 01/29/2019 [facility] Erythrocyte Sed <pending> finding [address] [place] [address] [phone] C Reactive Protein <pending> Quantiferon-TB 01/29/2019 [facility] QuantiferonTb Negative Negative [address] Plus [address] [address] [phone] TB1 Ag minus Nil Result -0.01 IU/mL TB2 Ag minus Nil Result 0.03 IU/mL Mitogen minus Nil Result 12.68 IU/mL Nil Result 0.24 IU/mL Laboratory test 01/24/2019 [facility] Erythrocyte Sed 54 mm/Hr High 0-29 [address] [place] [address] [phone] C Reactive Protein 7.53 mg/L Normal <8.01 3 CBC Auto 01/24/2019 [facility] White Blood 11.4 10^3/uL High 3.5-10.[address] [place] [address] [phone] Red Blood Count 3.96 10^6/uL Normal 3.70-4.87 Hemoglobin 11.8 g/dL Low 12.0-16.0 Hematocrit 35 % Normal 35-47 Mean Corpuscular Volume 89 fL Normal 80-97 Mean Corpuscular Hemoglobin 30 pg Normal 27-31 Mean Corpuscular HGB Conc 33 g/dL Normal 31-36 Red Cell Distribution Width 13 % Normal 10-15 Platelet Count 314 10^3/uL Normal 150-450 Mean Platelet Volume 8.5 fL Normal 7.4-10.4 Abs Neutrophils 8.2 10^3/uL High 1.5-7.7 Abs Lymphocytes 2.2 10^3/uL Normal 1.0-4.8 Abs Monocytes 0.9 10^3/uL High 0-0.8 Abs Eosinophils 0.1 10^3/uL Normal 0-0.6 Abs Basophils 0.1 10^3/uL Normal 0-0.2 Abs Nucleated RBC 0.0 10^3/uL Granulocyte % 71.9 % Lymphocyte % 18.8 % Monocyte % 7.9 % Eosinophil % 0.8 % Basophil % 0.6 % Nucleated Red Blood Cells % 0.0 Comp Metabolic 01/24/2019 [facility] Sodium 136 mmol/L Normal 135-[address] [place] [address] [phone] Potassium 4.1 mmol/L Normal 3.5-5.0 Chloride 95 mmol/L Low 101-111 Co2 Carbon Dioxide 31 mmol/L Normal 22-32 Anion Gap 10 mmol/L Normal 2-11 Glucose 141 mg/dL High 70-100 Blood Urea Nitrogen 12 mg/dL Normal 6-24 Creatinine 0.61 mg/dL Normal 0.51-0.95 BUN/Creatinine Ratio 19.7 Normal 8-20 Calcium 9.4 mg/dL Normal 8.6-10.3 Total Protein 6.7 g/dL Normal 6.4-8.9 Albumin 4.1 g/dL Normal 3.2-5.2 Globulin 2.6 g/dL Normal 2-4 Albumin/Globulin Ratio 1.6 Normal 1-3 Total Bilirubin 0.30 mg/dL Normal 0.2-1.0 Alkaline Phosphatase 52 U/L Normal 34-104 Alt 16 U/L Normal 7-52 Ast 20 U/L Normal 13-39 Egfr Non- 96.4 >60 Egfr 116.7 >60 4 Urine Microalbumin 11/07/2018 [facility] Ur Microalbumin < 15.0 [address] (mg/L) mg/[place] [address] [phone] Urine Creatinine 25.28 mg/dL Urine Microalbumin/Creatinine TNP <31 6 Laboratory test 11/06/2018 [facility] In House Hemoglobin A1c 6.0 5-7 finding Laboratory test 10/30/2018 [facility] Erythrocyte Sed 27 mm/Hr Normal 0-29 7, [address] [place] [address] [phone] C Reactive Protein 3.38 mg/L Normal <8.01 9 CBC Auto 10/30/2018 [facility] White Blood 10.7 10^3/uL Normal 3.5-10.[address] [place] [address] [phone] Red Blood Count 4.28 10^6/uL Normal 3.70-4.87 Hemoglobin 12.6 g/dL Normal 12.0-16.0 Hematocrit 37 % Normal 35-47 Mean Corpuscular Volume 88 fL Normal 80-97 Mean Corpuscular Hemoglobin 29 pg Normal 27-31 Mean Corpuscular HGB Conc 34 g/dL Normal 31-36 Red Cell Distribution Width 13 % Normal 10-15 Platelet Count 321 10^3/uL Normal 150-450 Mean Platelet Volume 7.6 fL Normal 7.4-10.4 Abs Neutrophils 6.4 10^3/uL Normal 1.5-7.7 Abs Lymphocytes 2.8 10^3/uL Normal 1.0-4.8 Abs Monocytes 1.2 10^3/uL High 0-0.8 Abs Eosinophils 0.2 10^3/uL Normal 0-0.6 Abs Basophils 0.1 10^3/uL Normal 0-0.2 Abs Nucleated RBC 0.0 10^3/uL Granulocyte % 60.1 % Lymphocyte % 25.8 % Monocyte % 11.3 % Eosinophil % 2.0 % Basophil % 0.8 % Nucleated Red Blood Cells % 0.0 Comp Metabolic 10/30/2018 [facility] Sodium 135 mmol/L Normal 135-[address] [place] [address] [phone] Potassium 4.5 mmol/L Normal 3.5-5.0 Chloride 96 mmol/L Low 101-111 Co2 Carbon Dioxide 29 mmol/L Normal 22-32 Anion Gap 10 mmol/L Normal 2-11 Glucose 100 mg/dL Normal 70-100 Blood Urea Nitrogen 10 mg/dL Normal 6-24 Creatinine 0.61 mg/dL Normal 0.51-0.95 BUN/Creatinine Ratio 16.4 Normal 8-20 Calcium 9.2 mg/dL Normal 8.6-10.3 Total Protein 6.7 g/dL Normal 6.4-8.9 Albumin 4.1 g/dL Normal 3.2-5.2 Globulin 2.6 g/dL Normal 2-4 Albumin/Globulin Ratio 1.6 Normal 1-3 Total Bilirubin 0.30 mg/dL Normal 0.2-1.0 Alkaline Phosphatase 48 U/L Normal 34-104 Alt 17 U/L Normal 7-52 Ast 20 U/L Normal 13-39 Egfr Non- 96.4 >60 Egfr 116.7 >60 10 Laboratory test 10/30/2018 [facility] Folic Acid > 20.00 > 3.99 [address] (Folate) ng/[place] [address] [phone] Vitamin B12 220 pg/mL Normal 180-914 12 1 M. tuberculosis infection NOT likely 2 Please check lab 2 days before follow up 3 Please check lab 2 days before follow up 4 Because ethnic data is not always readily available, this report includes an eGFR for both -Americans and non- Americans. The National Kidney Disease Education Program (NKDEP) does not endorse the use of the MDRD equation for patients that are not between the ages of 18 and 70, are , have extremes of body size, muscle mass, or nutritional status, or are non- or non-. According to the National Kidney Foundation, irrespective of diagnosis, the stage of the disease is based on the level of kidney function: Stage Description GFR(mL/min/1.73 m(2)) 1 Kidney damage with normal or decreased GFR 90 2 Kidney damage with mild decrease in GFR 60-89 3 Moderate decrease in GFR 30-59 4 Severe decrease in GFR 15-29 5 Kidney failure <15 (or dialysis) 5 [id number] 6 Unable to calculate due to low microalbumin 7 [id number] 8 [id number] 9 [id number] 10 Because ethnic data is not always readily available, this report includes an eGFR for both -Americans and non- Americans. The National Kidney Disease Education Program (NKDEP) does not endorse the use of the MDRD equation for patients that are not between the ages of 18 and 70, are , have extremes of body size, muscle mass, or nutritional status, or are non- or non-. According to the National Kidney Foundation, irrespective of diagnosis, the stage of the disease is based on the level of kidney function: Stage Description GFR(mL/min/1.73 m(2)) 1 Kidney damage with normal or decreased GFR 90 2 Kidney damage with mild decrease in GFR 60-89 3 Moderate decrease in GFR 30-59 4 Severe decrease in GFR 15-29 5 Kidney failure <15 (or dialysis) 11 [id number] 12 Normal Range 180 to 914 Indeterminate Range 145 to 180 Deficient Range <145 Procedures Date Code Description Status 02/16/2018 072459207 Diabetic Retinal Eye Exam Completed 06/16/2017 829771635 Bone Mineral Density Test Completed 06/16/2017 86267633 Mammogram Completed 10/25/2016 209659729 Diabetic Retinal Eye Exam Completed 04/14/2016 53330950 Mammogram Completed 05/30/2015 915147176 Diabetic Retinal Eye Exam Completed 04/07/2015 41680204 Mammogram Completed 04/05/2014 89718255 Mammogram Completed 02/08/2014 947045724 Diabetic Retinal Eye Exam Completed 08/14/2013 364800110 Diabetic Retinal Eye Exam Completed 04/04/2013 87007078 Mammogram Completed 04/04/2012 69241565 Mammogram Completed 04/04/2012 343044807 Bone Mineral Density Test Completed 04/03/2012 655195262 Bone Mineral Density Test Completed 12/17/2011 502899606 Diabetic Retinal Eye Exam Completed 12/14/2011 384347531 Diabetic Retinal Eye Exam Completed 04/02/2011 86167676 Mammogram Completed 01/15/2008 53005015 Mammogram Completed 07/30/2006 301553104 Diabetic Foot Exam Completed 01/09/2003 46421327 Colonoscopy Completed 12/27/2002 832735391 Bone Mineral Density Test Completed Medical Devices Description No Information Available Encounters Type Date Location Provider Dx Diagnosis Office Visit 01/25/2019 Rheumatology [facility]5.79 Rheu arthritis w 1:[facility] alonso factor mulsabra site w/o org/sys involv Z79.899 Other branch service specialist (current) drug therapy G62.9 Polyneuropathy, unspecified L29.9 Pruritus, unspecified Office Visit 11/30/2018 2:40p Rheumatology Heriberto Doshi M05.79 [facility] kim rheu factor mulsabra site w/o org/sys involv Z79.899 Other fdc (current) drug therapy M25.551 Pain in right hip G62.9 Polyneuropathy, unspecified Office Visit 11/06/2018 2:40p [facility] Internal Jennifer E11.9 Type 2 diabetes Cornel Canales M.D. mellitus without Ccmob complications I10 Essential (primary) hypertension Office Visit 10/31/2018 3:40p [facility]5.[facility] fuentesu factor [facility] site w/o org/sys involv Z79.899 Other branch service specialist (current) drug therapy M25.551 Pain in right hip M89.8x5 Other specified disorders of bone, thigh M25.512 Pain in left shoulder Office Visit 10/02/2018 4:40p Rheumatology [facility] [place]5.79 Rheu arthritis [facility] Pia w rheu factor [facility] site w/o org/sys involv Z79.899 Other branch service specialist (current) drug therapy G62.9 Polyneuropathy, unspecified L29.9 Pruritus, unspecified Assessments Date Code Description Provider 03/05/2019 R60.0 Localized edema Jennifer Canales M.D. 03/05/2019 R10.30 Lower abdominal pain, unspecified Jennifer Canales M.D. 01/25/2019 M05.79 Rheumatoid arthritis with rheumatoid factor Heriberto Doshi M.D. of [facility] site 01/25/2019 Z79.899 Other branch service specialist (current) drug therapy Heriberto Doshi M.D. 01/25/2019 G62.9 Polyneuropathy, unspecified Heriberto Doshi M.D. 01/25/2019 L29.9 Pruritus, unspecified Heriberto Doshi M.D. 11/30/2018 M05.79 Rheumatoid arthritis with rheumatoid factor Heriberto Doshi M.D. of [facility] site 11/30/2018 Z79.899 Other fdc (current) drug therapy Heriberto Doshi M.D. 11/30/2018 M25.551 Pain in right hip Heriberto Doshi M.D. 11/30/2018 G62.9 Polyneuropathy, unspecified Heriberto Doshi M.D. 11/06/2018 E11.9 Type 2 diabetes mellitus without Jennifer Canales M.D. complications 11/06/2018 I10 Essential (primary) hypertension Jennifer Canales M.D. 10/31/2018 M05.79 Rheumatoid arthritis with rheumatoid factor Heriberto Doshi M.D. of [facility] site 10/31/2018 Z79.899 Other fdc (current) drug therapy Heriberto Doshi M.D. 10/31/2018 M25.551 Pain in right hip Heriberto Doshi M.D. 10/31/2018 M89.8x5 Other specified disorders of bone, thigh Heriberto Doshi M.D. 10/31/2018 M25.512 Pain in left shoulder Heriberto Doshi M.D. 10/02/2018 M05.79 Rheumatoid arthritis with rheumatoid factor Heriberto Doshi M.D. of multiple site 10/02/2018 Z79.899 Other fdc (current) drug therapy Heriberto Doshi M.D. 10/02/2018 G62.9 Polyneuropathy, unspecified Heriberto Doshi M.D. 10/02/2018 L29.9 Pruritus, unspecified Heriberto Doshi M.D. Plan of Treatment Future Appointment(s):03/13/2019 2:40 pm - Heriberto Doshi M.D. at [facility]03/05/2019 - Jennifer Canales M.D.R60.0 Localized tilbhW28.30 Lower abdominal pain, unspecifiedComments:Please go to ER Functional Status Description No Information Available Mental Status Description No Information Available Referrals Description No Information Available
--- OUTSIDE RECORDS SUMMARY | 2019-03-05 17:13 | XMS REPORT | Continuity of Care Document ---
:1945 External Reference #:[id number] Author Name Heriberto Doshi M.D. (transmitted by agent of provider Nikki Bhandari) Address [address] [place] [address] Care Team Providers Name Role Phone Jennifer Canales MD - Internal Care Team Information Learning Disabilities Specialist Medicine Heriberto Doshi MD - Rheumatology Care Team Information Learning Disabilities Specialist [phone] Brent Albrecht MD - Infectious Care Team Information Learning Disabilities Specialist Disease Stepan Sloan MD - Otolaryngology Care Team Information Learning Disabilities Specialist Problems Active Problems Provider Date Rheumatoid arthritis [...] Patient has never smoked Smoking Status Reviewed: 01/25/19 Patient has never smoked Allergies, Adverse Reactions, Alerts Active Allergies Reaction Severity Comments Date Seasonal 12/30/2016 Kevzara rash 01/31/2018 Gabapentin hallucinations 02/20/2018 Sulfasalazine itching 06/22/2018 Inactive Allergies No Known Drug Allergy 06/17/2009 Medications Active Medications SIG Qnty Indications Ordering Date Provider Rinvoq Take one 30tabs Heriberto Doshi, 01/26/20 15mg Tablets ER 24HR capsule/tablet M.D. 19 daily by mouth Fast Acting B12 sublingual daily 90tabs Heriberto Doshi, 11/06/19 2500mcg M.D. 19 Tablets Sub Hydroxyzine HCL take 1 tablet by 60tabs Heriberto oDshi, 10/03/19 25mg mouth every 8 hours M.D. 19 Tablets as needed for itching (11/06/17: not taking) Evoxac take one capsule 180caps Heriberto Doshi, 05/24/19 30mg Capsules twice daily as M.D. 19 needed for dry mouth (11/06/17: not taking) Tizanidine HCL 1 or 2 cap by mouth 30caps M54.2 Jennifer 01/26/20 2mg Capsules as needed at night Pia Canales 17 for spasms Ketoconazole apply thin film 60gm M54.2 Jennifer 01/26/20 2% Cream twice daily Pia Canales 17 Hydroxychloroquine Take 2 Tablets By 180tabs Z79.899 Heriberto Doshi, Sulfate Mouth Every Day M.DAngelo 17 200mg Tablets Metformin HCL 1 by mouth every 90tabs E11.9 Jennifer 10/12/19 500mg Tablets day Pia Canales 17 Advair Diskus inhale one puff by 180units J45.50 Jennifer 09/24/19 mouth twice daily Pia Canales 17 500-50mcg/Dose Aerosol Torsemide 2 by mouth every 60tabs I10 Jennifer 08/14/19 20mg Tablets day Pia Canales 17 Fluocinonide apply twice a day 15gm Jennifer 07/24/19 0.05% Gel for not more than 2 Pia Canales 17 weeks-prn per patient Hydrocodone-Acetaminoph 1 by mouth 2-3 90tabs Jennifer 05/06/19 en times a day as Pia Canales 17 5-325mg Tablets needed Compression Stockings please use daily as 2units Heriberto Doshi, 03/17/20 Misc needed for edema M.DAngelo 16 BD 1ML for use weekly with 90units Heriberto Doshi, 02/17/20 Syringe/Needle/Slip sc methotrexate M.DAngelo 16 Tip/Subq/26G X 5/8" 26G X 5/8" 1 ML Misc Clotrimazole 1 by mouth 5 times 140units B37.9 [facility] 01/15/20 10mg Josh daily as needed Pia Canales 16 Miralax 17 gm every day 510units R10.32 [facility] 12/15/19 3350NF Powder mixed w/ 8 oz Pia Canales 16 water/juice as needed for constipation Voltaren apply 2 grams twice 200gm E04.1 Jennifer 11/17/19 1% Gel daily as needed for Pia Canales 16 pain to the hands, avoid other nsaids T.E.D. Anti-Embolism for daily use 1Pair R60.0 [facility] 08/05/19 Stockings Knee Length Pia Canales 16 15-20mm HG [facility] Flonase Allergy Relief use one spray in 48units [facility] 01/22/20 each nostril daily Pia Canales 15 50mcg/Act Suspension as needed-uses daily Albuterol Sulfate 1 vial via 100units J45.901 [facility] 09/07/19 nebulizer 4 times Pia Canales 14 (2.5mg/3ML) 0.083% daily as needed Nebulizer Walker, 2 Wheels, With for daily use [facility] 08/22/19 Glides For Back Posts Pia Canales 14 Misc Acetaminophen 1 by mouth four Jennifer 11/21/19 500mg Tablets times a day-takes 1 Pia Canales 13 po bid routinely Wrist Brace/Left for use at night M79.603 Jennifer 08/16/19 [facility] and as needed Pia Canales 13 Freestyle Lite Test use as directed 100units Jennifer 09/24/19 Strip twice daily or as Pia Canales 12 needed dx: 250.02 Blood Pressure Arm Cuff code: 401.1 1units Jennifer 07/28/19 Medium Pia Canales 12 [facility] Wheelchair 1units 715.16 Jennifer 06/25/19 [facility] Pia Canales 12 Blood Pressure Monitor, [facility] 03/11/20 Large Cuff Pia Canales 11 [facility] Walker With Basket dx: severe 1units Jennifer 02/13/20 [facility] osteoarthritis of Pia Canales 11 knee Freestyle Lancets use as directed 100units Jennifer 04/15/20 [facility] Pia Canales 10 Losartan Potassium take one tablet by 90tabs I10 Jennifer 02/17/20 100mg mouth one time Pia Canales 10 Tablets daily Tramadol HCL take 1 to 2 tablets 120tabs Jennifer 11/17/19 50mg Tablets by mouth every 6 CottonWilianDAngelo 10 hours as needed for pain max 6/day Fexofenadine HCL Take One Tablet By 30tabs Jennifer 180mg Mouth Daily as Pia Canales 00 Tablets Needed Clobetasol Propionate apply twice daily 60gm Jennifer 0.05% for up to 2 weeks, Pia Canales 00 Cream stay off for 2 weeks then repeat as needed Multi Vitamin Daily 1 by mouth twice a Unknown week 00 Tablets Ammonium Lactate Apply To Affected 385units Heriberto Doshi, 12% Cream Area Every Day M.D. 00 History Medications Prednisone 1 by mouth every 30tabs Heriberto Doshi, 01/22/2019 - 20mg Tablets day M.D. 01/25/2019 Humira 40mg sq every 2 2units Heriberto Doshi, 11/30/2018 - 40mg/0.4ML PSKT weeks, citrate M.D. 01/25/2019 free formulation, stop Cimzia Medications Administered in Office Medication SIG Qnty Indications Ordering Provider Date Hyaluron Or Titus Ramirez M.D. 06/09/2011 Taco Daniels,For Intra-Articular Inj Per Dose Injection Hyaluron Or Titus Ramirez M.D. 06/03/2011 Taco DanielsFor Intra-Articular Inj Per Dose Injection Hyaluron Or Titus Ramirez M.D. 05/27/2011 Taco DanielsFor Intra-Articular Inj Per Dose Injection Depomedrol 80MG Titus Ramirez M.D. 03/30/2011 Injection Depomedrol 80MG Titus Ramirez M.D. 02/23/2011 Injection Immunizations CPT Code Status Date Vaccine Lot # [id number] Given 01/11/2018 Influenza Virus Vaccine, Quadrivalent, Split, Preservative Free 52504 Given 01/10/2017 Influenza Virus Vaccine, Quadrivalent, Split, [id number] Preservative Free 94795 Given 01/15/2016 Influenza Virus Vaccine, Quadrivalent, Split, [id number] Preservative Free 48943 Given 02/28/2015 Influenza Virus Vaccine, Quadrivalent, Split, [id number] Preservative Free 70229 Given 02/21/2014 Pneumococcal Conjugate Vaccine 13 Valent For [id number] Intramuscular Use 81772 Given 02/21/2014 Flu Vaccine Split Virus Preservative Free For [id number] Indiv 3Yr Older 26996 Given 02/16/2013 Flu Vaccine Split Virus Preservative Free For [id number] Indiv 3Yr Older 35686 Given 04/04/2012 Tdap - Tetanus/Diptheria/Acellular Pertussis [id number] Given 02/08/2012 Fluzone Vaccine [id number] 42603 Given 11/23/2011 Pneumonia Vaccine [id number] 45265 Given 02/08/2011 Influenza Virus 3Yrs & Over [id number] 60627 Given 02/04/2010 Influenza Virus 3Yrs & Over 51442 Given 04/10/2009 Influenza Virus Vaccine, Pandemic Formulation 83680 Given 04/10/2009 Administration Swine Flu Shot 91881 Given 01/28/2009 Influenza Virus 3Yrs & Over 21741 Given 03/26/2002 Tetanus And Diptheria (Td) For Adult Use Preservative Free Vital Signs Date Vital Result Comment 01/25/2019 1:47pm Height 60.5 inches 5'0.50" Weight 207.25 lb Heart Rate 92 /min BP Systolic 138 mmHg BP Diastolic 86 mmHg Pain Level 6 O2 % BldC Oximetry 98 % BMI (Body Mass Index) 39.8 kg/m2 11/30/2018 2:47pm Height 60.5 inches 5'0.50" Weight 197.50 lb Heart Rate 92 /min BP Systolic Sitting 138 mmHg BP Diastolic Sitting 82 mmHg Pain Level 7 O2 % BldC Oximetry 98 % BMI (Body Mass Index) 37.9 kg/m2 Results Test Date Facility Test Result H/L Range Note Urine Microalbumin 11/07/2018 [facility] Ur Microalbumin < 15.0 mg/L [address] (mg/L) [place] [address] [phone] Urine Creatinine 25.28 mg/dL Urine Microalbumin/Creatinine TNP <31 2 Laboratory test 11/06/2018 [facility] Hemoglobin A1c 6.0 5-7 finding Laboratory test 10/30/2018 [facility] Erythrocyte Sed 27 mm/Hr Normal 0-29 3, [address] [place] [address] [phone] C Reactive Protein 3.38 mg/L Normal <8.01 5 CBC Auto 10/30/2018 [facility] White Blood 10.7 10^3/uL Normal 3.5-10.[address] [place] [address] [phone] Red Blood Count 4.28 10^6/uL Normal 3.70-4.87 [...] Blood Cells % 0.0 Comp Metabolic 10/30/2018 [facility] Sodium 135 mmol/L Normal 135-[address] [place] [address] [phone] Potassium 4.5 mmol/L Normal 3.5-5.0 Chloride 96 [...] Egfr Non- 96.4 >60 Egfr 116.7 >60 6 Laboratory test 10/30/2018 [facility] Folic Acid > 20.00 > 3.[address] (Folate) ng/[place] [address] [phone] Vitamin B12 220 pg/mL Normal 180-914 8 Laboratory test 08/21/2018 [facility] Erythrocyte Sed 54 mm/Hr High 0-29 [address] [place] [address] [phone] C Reactive Protein 10.20 mg/L High <8.01 10 CBC Auto 08/21/2018 [facility] White Blood 9.0 10^3/uL Normal 3.5-10.[address] [place] [address] [phone] Red Blood Count 4.26 10^6/uL Normal 3.70-4.87 Hemoglobin 12.1 g/dL Normal 12.0-16.0 Hematocrit 37 % Normal 33-41 Mean Corpuscular Volume 86 fL Normal 80-97 Mean Corpuscular Hemoglobin 28 pg Normal 27-31 Mean Corpuscular HGB Conc 33 g/dL Normal 31-36 Red Cell Distribution Width 13 % Normal 10.5-15 Platelet Count 340 10^3/uL Normal 150-450 Mean Platelet Volume 7.4 fL Normal 7.4-10.4 Abs Neutrophils 5.9 10^3/uL Normal 1.5-7.7 Abs Lymphocytes 2.1 10^3/uL Normal 1.0-4.8 Abs Monocytes 0.8 10^3/uL Normal 0-0.8 Abs Eosinophils 0.2 10^3/uL Normal 0-0.6 Abs Basophils 0.1 10^3/uL Normal 0-0.2 Abs Nucleated RBC 0 10^3/uL Granulocyte % 64.9 % Lymphocyte % 23.1 % Monocyte % 8.4 % Eosinophil % 2.8 % Basophil % 0.8 % Nucleated Red Blood Cells % 0 Comp Metabolic 08/21/2018 [facility] Sodium 136 mmol/L Normal 135-[address] [place] [address] [phone] Potassium 4.0 mmol/L Normal 3.5-5.0 Chloride 96 mmol/L Low 101-111 Co2 Carbon Dioxide 31 mmol/L Normal 22-32 Anion Gap 9 mmol/L Normal 2-11 Glucose 120 mg/dL High 70-100 Blood Urea Nitrogen 14 mg/dL Normal 6-24 Creatinine 0.69 mg/dL Normal 0.51-0.95 BUN/Creatinine Ratio 20.3 High 8-20 Calcium 9.2 mg/dL Normal 8.6-10.3 Total Protein 6.8 g/dL Normal 6.4-8.9 Albumin 4.0 g/dL Normal 3.2-5.2 Globulin 2.8 g/dL Normal 2-4 Albumin/Globulin Ratio 1.4 Normal 1-3 Total Bilirubin 0.30 mg/dL Normal 0.2-1.0 Alkaline Phosphatase 63 U/L Normal 34-104 Alt 17 U/L Normal 7-52 Ast 19 U/L Normal 13-39 Egfr Non- 83.9 >60 Egfr 101.5 >60 11 1 [id number] 2 Unable to calculate due to low microalbumin 3 [id number] 4 [id number] 5 [id number] 6 Because ethnic data is not always readily [...] 15-29 5 Kidney failure <15 (or dialysis) 7 [id number] 8 Normal Range 180 to 914 Indeterminate Range 145 to 180 Deficient Range <145 9 Please check labs 2 days before followup 10 Please check labs 2 days before followup 11 Because ethnic data is not always readily [...] 15-29 5 Kidney failure <15 (or dialysis) Procedures Date Code Description Status 02/16/2018 [id number] Diabetic Retinal Eye Exam Completed 06/16/2017 [id number] Bone Mineral Density Test Completed 06/16/2017 [id number] Mammogram Completed 10/25/2016 [id number] Diabetic Retinal Eye Exam Completed 04/14/2016 [id number] Mammogram Completed 05/30/2015 [id number] Diabetic Retinal Eye Exam Completed 04/07/2015 [id number] Mammogram Completed 04/05/2014 [id number] Mammogram Completed 02/08/2014 [id number] Diabetic Retinal Eye Exam Completed 08/14/2013 504382625 Diabetic Retinal Eye Exam Completed 04/04/2013 [id number] Mammogram Completed 04/04/2012 [id number] Mammogram Completed 04/04/2012 [id number] Bone Mineral Density Test Completed 04/03/2012 [id number] Bone Mineral Density Test Completed 12/17/2011 [id number] Diabetic Retinal Eye Exam Completed 12/14/2011 [id number] Diabetic Retinal Eye Exam Completed 04/02/2011 [id number] Mammogram Completed 01/15/2008 [id number] Mammogram Completed 07/30/2006 [id number] Diabetic Foot Exam Completed 01/09/2003 [id number] Colonoscopy Completed 12/27/2002 916115700 Bone Mineral Density Test Completed Medical Devices Description No Information Available Encounters Type Date Location Provider Dx Diagnosis Office Visit 11/30/2018 Rheumatology Heriberto Doshi M05.79 Rheu arthritis w 2:40p [facility] Pia rheu factor [facility] w/o org/sys involv Z79.899 Other nursing home (current) drug therapy M25.551 Pain in right hip G62.9 Polyneuropathy, unspecified Office Visit 11/06/2018 2:40p [facility] Internal Jennifer E11.9 Type 2 diabetes Cornel Canales M.D. 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 of [facility] site 01/25/2019 Z79.899 Other nursing home (current) drug therapy Heriberto Doshi M.D. 01/25/2019 G62.9 Polyneuropathy, unspecified Heriberto Doshi M.D. 01/25/2019 L29.9 Pruritus, unspecified Heriberto Doshi M.D. 11/30/2018 M05.79 Rheumatoid arthritis with rheumatoid factor Heriberto Doshi M.D. 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 11/30/2018 M25.551 Pain in right hip Heriberto Doshi M.D. 11/30/2018 G62.9 Polyneuropathy, unspecified Heriberto Doshi M.D. 11/06/2018 E11.9 Type 2 diabetes mellitus without Jennifer Canales M.D. complications 11/06/2018 I10 Essential (primary) hypertension Jennifer Canales M.D. 10/31/2018 M05.79 Rheumatoid arthritis with rheumatoid factor Heriberto Doshi M.D. 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 10/31/2018 M25.551 Pain in right hip Heriberto Doshi M.D. 10/31/2018 M89.8x5 Other specified disorders of bone, thigh Heriberto Doshi M.D. 10/31/2018 M25.512 Pain in left shoulder Heriberto Doshi M.D. 10/02/2018 M05.79 Rheumatoid arthritis with rheumatoid factor Heriberto Doshi M.D. 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 10/02/2018 G62.9 Polyneuropathy, unspecified Heriberto Doshi M.D. 10/02/2018 L29.9 Pruritus, unspecified Heriberto Doshi M.D. Plan of Treatment Future Appointment(s):03/13/2019 2:40 pm - Heriberto Doshi M.D. at [facility]01/25/2019 - Heriberto Doshi M.D.M05.79 Rheumatoid arthritis with rheumatoid factor of multiple siteZ79.899 Other nursing home (current) drug therapyFollow up:Follow up in 4 to 6 weeks Please stop Humira as we are trying another zrnkvqhqE52.9 Polyneuropathy, bypqsliougyM34.9 Pruritus, unspecifiedComments:Stop Rinvoq Functional Status Description No Information Available Mental Status Description No Information Available Referrals Description No Information Available
[2019-03-05 19:42] LABS: ABS Basophils 0.1 10^3/ul (0-0.2); ABS Eosinophils 0.5 10^3/ul (0-0.6); ABS Lymphocytes 1.1 10^3/ul (1.0-4.8); ABS Monocytes 1.3 10^3/ul (0-0.8); ABS Neutrophils 8.1 10^3/ul (1.5-7.7); Eosinophil % 4.3 %; Hematocrit 35 % (35-47); Hemoglobin 11.6 g/dL (12.0-16.0); Lymphocyte % 10.2 %; Mean Corpuscular HGB Conc 33 g/dL (31-36); Mean Corpuscular Hemoglobin 29 pg (27-31); Mean Corpuscular Volume 87 fL (80-97); Mean Platelet Volume 6.8 fL (7.4-10.4); Platelet Count 328 10^3/uL (150-450); Red Cell Distribution Width 13 % (10-15)
[2019-03-05 20:00] LABS: Albumin 3.7 g/dL (3.2-5.2); Albumin/Globulin Ratio 1.2 (1-3); BUN/Creatinine Ratio 8.7 (8-20); Calcium 9.5 mg/dL (8.6-10.3); EGFR African American 63.7 (>60); EGFR Non-African American 52.7 (>60); Globulin 3.2 g/dL (2-4); Magnesium 1.9 mg/dL (1.9-2.7); Potassium 4.2 mmol/L (3.5-5.0); Total Bilirubin 0.4 mg/dL (0.2-1.0); Total Protein 6.9 g/dL (6.4-8.9)
[2019-03-05 20:02] LABS: Troponin I 0.02 ng/mL (<0.04)
[2019-03-05 20:22] LABS: TSH (Thyroid Stimulating Horm) 0.73 mcIU/mL (0.34-5.60)
[2019-03-05] MEDS ORDERED: Ondansetron INJ* 2 MG/ML VIAL IV ONE (20:29)
[2019-03-05] MEDS ORDERED: amLODIPine TAB* 5 MG PO ONE (21:35)
--- NOTE | 2019-03-05 21:41 | ED ---
Nausea/Vomiting/Diarrhea HPI - HPI Summary HPI Summary: Patient complains of exertional SOB 1 week, nausea 1 week, sent by PCP to ED for further evaluation of possible dehydration. Patient states she has been able to tolerate small sips of fluid, but not tolerating solid food intake. Patient states she stopped taking her diuretics and metformin per instructions of PCP due to nausea symptoms. Also complains of increase in chronic bilateral lower edema, has stopped taking her diuretics. Denies fever, cough, sore throat , CP, V/D, abdominal pain him a change in urine, change in BM. Medical history COPD, DM 2, chronic lower extremity edema, HTN, SVT, RA. - History of Current Complaint Chief Complaint: EDGeneral Stated Complaint: DEHYDRATED,NAUSEA PER Time Seen by Provider: 03/05/19 20:05 Hx Obtained From: Patient, Family/Branding Machine Tender Onset/Duration: Gradual Onset, Lasting Days Severity Currently: None Pain Intensity: 0 Pain Scale Used: 0-10 Numeric Aggravating Factor(s): Nothing Alleviating Factor(s): Nothing - Allergies/Home Medications Allergies/Adverse Reactions: Allergies Allergy/AdvReac Type Severity Reaction Status Date / Time No Known Allergies Allergy Verified 03/05/19 16:32 Home Medications: Home Medications Hydroxychloroquine TAB* 2 tab PO DAILY 03/05/19 [History Confirmed 03/05/19] Metformin HCl 500 mg PO DAILY 03/05/19 [History Confirmed 03/05/19] Rinvoq ER 1 tab PO DAILY 03/05/19 [History Confirmed 03/05/19] PMH/Surg Hx/FS Hx/Imm Hx Endocrine/Hematology History: Reports: Hx Diabetes Cardiovascular History: Reports: Hx Hypertension Respiratory History: Reports: Hx Asthma, Hx Chronic Obstructive Pulmonary Disease (COPD), Hx Pneumonia History: Reports: Hx Renal Disease - resolved 2009, Other Problems/ Disorders - renal disease- resolved 2009 Denies: Hx Kidney Stones Musculoskeletal History: Reports: Hx Rheumatoid Arthritis, Other Musculoskeletal History - RA Sensory History: Denies: Hx Legally Blind EENT History: Denies: Hx Deafness Neurological History: Denies: Hx Dementia - Cancer History Hx Chemotherapy: No - methotrexate for RA Hx Radiation Therapy: No - Surgical History Surgery Procedure, Year, and Place: right ear drum 8 yrs ago Hx Anesthesia Reactions: No Infectious Disease History: No Infectious Disease History: Denies: Traveled Outside the [place] in Last 30 Days - Family History Known Family History: Negative: Other - Hx Breast cancer - Social History Alcohol Use: Occasionally Substance Use Type: Reports: None Hx Tobacco Use: No Smoking Status (MU): Never Smoked Tobacco Review of Systems Constitutional: Negative Eyes: Negative ENT: Negative Cardiovascular: Negative Positive: Shortness Of Breath Positive: Nausea Genitourinary: Negative Musculoskeletal: Negative Skin: Negative Neurological: Negative Psychological: Normal All Other Systems Reviewed And Are Negative: Yes Physical Exam - Summary Physical Exam Summary: 2+ pitting edema bilaterally lower extremities. Triage Information Reviewed: Yes Vital Signs On Initial Exam: Initial Vitals Temp Pulse Resp BP Pulse Ox 98.1 F 92 16 187/97 93 03/05/19 16:28 03/05/19 16:28 03/05/19 16:28 03/05/19 16:28 03/05/19 16:28 Vital Signs Reviewed: Yes Appearance: Positive: Well-Appearing Skin: Positive: Warm Head/Face: Positive: Normal Head/Face Inspection Eyes: Positive: Normal Neck: Positive: Supple Respiratory/Lung Sounds: Positive: Clear to Auscultation Cardiovascular: Positive: Normal Abdomen Description: Positive: Nontender Musculoskeletal: Positive: Normal Neurological: Positive: Normal Psychiatric: Positive: Normal AVPU Assessment: Alert - [place] Coma Scale Best Eye Response: 4 - Spontaneous Best Motor Response: 6 - Obeys Commands Best Verbal Response: 5 - Oriented Coma Scale Total: 15 Procedures - Sedation Patient Received Moderate/Deep Sedation with Procedure: No Diagnostics - Vital Signs Vital Signs Temp Pulse Resp BP Pulse Ox 03/05/19 21:29 99.9 F 03/05/19 21:27 87 20 179/81 98 03/05/19 21:07 16 03/05/19 20:34 87 16 96 03/05/19 20:20 92 213/97 100 03/05/19 20:04 94 96 03/05/19 18:42 97.9 F 90 20 0/0 90 03/05/19 16:28 98.1 F 92 16 187/97 93 - Laboratory Lab Results: Lab Results 03/05/19 03/05/19 03/05/19 Range/Units 19:34 19:34 19:34 WBC 11.0 H (3.5-10.8) 10^3/uL RBC 4.00 (3.70-4.87) 10^6 /uL Hgb 11.6 L (12.0-16.0) g/dL Hct 35 (35-47) % MCV 87 (80-97) fL MCH 29 (27-31) pg MCHC 33 (31-36) g/dL RDW 13 (10-15) % Plt Count 328 (150-450) 10^3/uL MPV 6.8 L (7.4-10.4) fL Neut % (Auto) 73.1 % Lymph % (Auto) 10.2 % [place] % (Auto) 11.9 % Eos % (Auto) 4.3 % Baso % (Auto) 0.5 % Absolute Neuts (auto) 8.1 H (1.5-7.7) 10^3/ul Absolute Lymphs (auto) 1.1 (1.0-4.8) 10^3/ul Absolute Monos (auto) 1.3 H (0-0.8) 10^3/ul Absolute Eos (auto) 0.5 (0-0.6) 10^3/ul Absolute Basos (auto) 0.1 (0-0.2) 10^3/ul Absolute Nucleated RBC 0.0 10^3/ul Nucleated RBC % 0.0 Sodium 130 L (135-145) mmol/L Potassium 4.2 (3.5-5.0) mmol/L Chloride 94 L (101-111) mmol/L Carbon Dioxide 29 (22-32) mmol/L Anion Gap 7 (2-11) mmol/L BUN 9 (6-24) mg/dL Creatinine 1.03 H (0.51-0.95) mg/dL Est GFR ( Amer) 63.7 (>60) Est GFR (Non-Af Amer) 52.7 (>60) BUN/Creatinine Ratio 8.7 (8-20) Glucose 107 H (70-100) mg/dL Lactic Acid 1.2 (0.5-2.0) mmol/L Calcium 9.5 (8.6-10.3) mg/dL Magnesium 1.9 (1.9-2.7) mg/dL Total Bilirubin 0.40 (0.2-1.0) mg/dL AST 20 (13-39) U/L ALT 14 (7-52) U/L Alkaline Phosphatase 56 (34-104) U/L Troponin I 0.02 (<0.04) ng/mL B-Natriuretic Peptide (<=100) pg/mL Total Protein 6.9 (6.4-8.9) g/dL Albumin 3.7 (3.2-5.2) g/dL Globulin 3.2 (2-4) g/dL Albumin/Globulin Ratio 1.2 (1-3) TSH 0.73 (0.34-5.60) mcIU/mL 03/05/19 Range/Units 19:34 WBC (3.5-10.8) 10^3/uL RBC (3.70-4.87) 10^6 /uL Hgb (12.0-16.0) g/dL Hct (35-47) % MCV (80-97) fL MCH (27-31) pg MCHC (31-36) g/dL RDW (10-15) % Plt Count (150-450) 10^3/uL MPV (7.4-10.4) fL Neut % (Auto) % Lymph % (Auto) % [place] % (Auto) % Eos % (Auto) % Baso % (Auto) % Absolute Neuts (auto) (1.5-7.7) 10^3/ul Absolute Lymphs (auto) (1.0-4.8) 10^3/ul Absolute Monos (auto) (0-0.8) 10^3/ul Absolute Eos (auto) (0-0.6) 10^3/ul Absolute Basos (auto) (0-0.2) 10^3/ul Absolute Nucleated RBC 10^3/ul Nucleated RBC % Sodium (135-145) mmol/L Potassium (3.5-5.0) mmol/L Chloride (101-111) mmol/L Carbon Dioxide (22-32) mmol/L Anion Gap (2-11) mmol/L BUN (6-24) mg/dL Creatinine (0.51-0.95) mg/dL Est GFR ( Amer) (>60) Est GFR (Non-Af Amer) (>60) BUN/Creatinine Ratio (8-20) Glucose (70-100) mg/dL Lactic Acid (0.5-2.0) mmol/L Calcium (8.6-10.3) mg/dL Magnesium (1.9-2.7) mg/dL Total Bilirubin (0.2-1.0) mg/dL AST (13-39) U/L ALT (7-52) U/L Alkaline Phosphatase (34-104) U/L Troponin I (<0.04) ng/mL B-Natriuretic Peptide 129 H (<=100) pg/mL Total Protein (6.4-8.9) g/dL Albumin (3.2-5.2) g/dL Globulin (2-4) g/dL Albumin/Globulin Ratio (1-3) TSH (0.34-5.60) mcIU/mL Result Diagrams: 03/05/19 19:34 03/05/19 19:34 Lab Statement: Any lab studies that have been ordered have been reviewed, and results considered in the medical decision making process. Naus/Vom/Diarrhea Course/Dx - Course Course Of Treatment: Patient complains of exertional SOB 1 week, nausea 1 week , sent by PCP to ED for further evaluation of possible dehydration. Patient states she has been able to tolerate small sips of fluid, but not tolerating solid food intake. Patient states she stopped taking her diuretics and metformin per instructions of PCP due to nausea symptoms. Also complains of increase in chronic bilateral lower edema, has stopped taking her diuretics. Denies fever, cough, sore throat, CP, V/D, abdominal pain him a change in urine , change in BM. Medical history COPD, DM 2, chronic lower extremity edema, HTN , SVT, RA. BP initially elevated. Resolved to SBP 155 with amlodipine 5 mg by mouth. Nausea controlled with Zofran and Reglan IV. Vital signs within normal limits. WBC 11.0. BNP 129. Chest x-ray unremarkable. EKG sinus rhythm, heart rate 85, normal P axis. Discussed patient with hospitalist Dr. Beckham, recommended amlodipine by mouth for elevated BP and then discharge home with follow-up with primary care. Patient advised to contact PCP tomorrow for consideration of recently diuretics and metformin, and possible evaluation of uncontrolled hypertension. Patient and understand and approve of plan. - Differential Dx/Diagnosis Provider Diagnosis: Nausea, Exertional shortness of breath, Bilateral leg edema Condition At Discharge: Stable Discharge ED - Sign-Out/Discharge Documenting (check all that apply): Patient Departure - Discharge Plan Condition: Stable Disposition: HOME Prescriptions: Ondansetron ODT TAB* [Zofran 4 MG Odt TAB*] 4 mg PO Q8H PRN 4 Days #14 tab.odt PRN Reason: Nausea Referrals: Jennifer Canales MD [Primary Care Provider] - Additional Instructions: Take Zofran as directed for nausea if needed. Follow-up with primary care Dr. canales regarding restarting diuretics and metformin. Return to the ED for worsening symptoms. - Billing Disposition and Condition Condition: STABLE Disposition: Home
[2019-03-05] MEDS ORDERED: Metoclopramide IV* 5 MG/ML 2 ML VIAL IV ONE (22:08)
[2019-03-06] MEDS ORDERED: traMADol TAB* 50 MG PO ONE (00:13)
[2019-03-06] MEDS ORDERED: Ondansetron ODT TAB* 4 MG SL ONE (00:31)
[2019-03-06 00:39] VITALS: BP 162/77
== END 2019-03-06 00:39 | disposition home or self-care (01) ==
LOC: ED 16:25
DX: R06.02 Shortness of breath (principal); R60.0 Localized edema; R11.0 Nausea; E11.9 Type 2 diabetes mellitus without complications; Z79.84 Long term (current) use of oral hypoglycemic drugs; I10 Essential (primary) hypertension; J44.9 Chronic obstructive pulmonary disease, unspecified; M06.9 Rheumatoid arthritis, unspecified
CPT/HCPCS: 36415; 71046; 80053; 83605; 83735; 83880; 84443; 84484; 85025; 93005; 96374; 96375; 99284; A9270-GY; J2405; J2765

== ENCOUNTER 2019-12-26 17:20 | Inpatient (IN) ==
[2019-12-26 17:54] LABS: ABS Basophils 0.1 10^3/ul (0-0.2); ABS Eosinophils 0.4 10^3/ul (0-0.6); ABS Lymphocytes 2.8 10^3/ul (1.0-4.8); ABS Monocytes 1.5 10^3/ul (0-0.8); ABS Neutrophils 10.1 10^3/ul (1.5-7.7); Eosinophil % 2.9 %; Hematocrit 34 % (35-47); Hemoglobin 12.4 g/dL (12.0-16.0); Lymphocyte % 18.6 %; Mean Corpuscular HGB Conc 36 g/dL (31-36); Mean Corpuscular Hemoglobin 30 pg (27-31); Mean Corpuscular Volume 83 fL (80-97); Mean Platelet Volume 6.9 fL (7.4-10.4); Nucleated Red Blood Cells % 0.1; Platelet Count 300 10^3/uL (150-450); Red Blood Count 4.14 10^6 /uL (3.70-4.87); Red Cell Distribution Width 13 % (10-15)
[2019-12-26 18:18] LABS: ALT 19 U/L (7-52); AST 35 U/L (13-39); Albumin 3.9 g/dL (3.2-5.2); Albumin/Globulin Ratio 1.3 (1-3); Alkaline Phosphatase 65 U/L (34-104); BUN/Creatinine Ratio 21.2 (8-20); Blood Urea Nitrogen 14 mg/dL (6-24); CO2 Carbon Dioxide 32 mmol/L (22-32); Calcium 9.7 mg/dL (8.6-10.3); Chloride 76 mmol/L (101-111); EGFR African American 106.2 (>60); EGFR Non-African American 87.8 (>60); Glucose 139 mg/dL (70-100); Magnesium 1.5 mg/dL (1.9-2.7); Total Protein 6.9 g/dL (6.4-8.9)
[2019-12-26 18:24] LABS: Anion Gap 10 mmol/L (2-11); Troponin I 0.03 ng/mL (<0.03)
[2019-12-26] MEDS ORDERED: NS 0.9% 1000 ml BAG 1,000 ML IV ONE (18:24)
[2019-12-26] MEDS ORDERED: Magnesium Sulfate IV 3 GM in NS 0.9% 100 ml BAG 100 ML IVPB ONE (18:24)
[2019-12-26 18:25] LABS: Sodium 118 mmol/L (135-145)
[2019-12-26] MEDS ORDERED: Iodixanol (CONTRAST) 320 MG/ML 100 ML SDV IV ONE (18:47)
[2019-12-26] MEDS ORDERED: oxyCODONE/Acetamin 5/325 mg TAB PO ONE (19:24)
[2019-12-26 19:47] LABS: C Reactive Protein 17.34 mg/L (<8.01)
[2019-12-26 20:09] LABS: TSH Ultra Thyroid Stim Horm 1.75 mcIU/mL (0.34-5.60)
[2019-12-26] MEDS ORDERED: Polyethylene Glycol 3350 17 GM PACKET PO PRN (20:35)
[2019-12-26] MEDS ORDERED: Albuterol 2.5mg/3 ml (0.083%) NEB.SOLN INH PRN (20:35)
[2019-12-26] MEDS ORDERED: Prochlorperazine 5 mg/ml 2 ml VIAL (10 mg) IV PRN (21:11)
[2019-12-26 22:22] LABS: BUN/Creatinine Ratio 17.2 (8-20); Blood Urea Nitrogen 11 mg/dL (6-24); CO2 Carbon Dioxide 32 mmol/L (22-32); Calcium 9.2 mg/dL (8.6-10.3); Chloride 79 mmol/L (101-111); EGFR African American 110.1 (>60); Glucose 143 mg/dL (70-100); Sodium 120 mmol/L (135-145)
[2019-12-26 22:29] LABS: Troponin I 0.04 ng/mL (<0.03)
[2019-12-26] MEDS ORDERED: Al Hydrox/Mg Hydrox/Simet LIQ 30 ML UDC PO PRN (22:29)
[2019-12-26 22:38] LABS: Anion Gap 9 mmol/L (2-11)
[2019-12-27] MEDS: KCL 20 MEQ/100 ML IVPREMIX 20 MEQ/100 ML BAG IV SCH ×2 (00:30→04:16)
[2019-12-27 02:31] LABS: Urine Appearance Clear; Urine Bilirubin Negative (Negative); Urine Blood Negative (Negative); Urine Color Straw; Urine Glucose Negative (Negative); Urine Ketones Negative (Negative); Urine Nitrite Negative (Negative); Urine Protein Negative (Negative); Urine Urobilinogen Negative (Negative)
[2019-12-27] MEDS: HYDROcodone/ACETAMIN 5/325 mg TAB PO PRN ×3 (02:31→17:37)
[2019-12-27 02:45] LABS: Urine Creatinine Concentration 36.96 mg/dL; Urine Sodium Concentration < 18 mmol/L
[2019-12-27 02:46] LABS: Anion Gap 11 mmol/L (2-11); BUN/Creatinine Ratio 18.3 (8-20); Blood Urea Nitrogen 11 mg/dL (6-24); CO2 Carbon Dioxide 29 mmol/L (22-32); Calcium 8.9 mg/dL (8.6-10.3); Chloride 80 mmol/L (101-111); EGFR African American 118.6 (>60); Glucose 153 mg/dL (70-100); Potassium 3.2 mmol/L (3.5-5.0); Sodium 120 mmol/L (135-145)
[2019-12-27 02:50] LABS: Troponin I 0.04 ng/mL (<0.03)
[2019-12-27] MEDS: NS 0.9% 1000 ml BAG 1,000 ML IV SCH ×2 (03:26→17:23)
[2019-12-27] MEDS ORDERED: KCL 20 MEQ/100 ML IVPREMIX 20 MEQ/100 ML BAG ONE (04:15)
[2019-12-27] MEDS: Heparin 5000 UNITS/ML 1 mL VIAL SUBCUT SCH ×3 (05:59→21:04)
[2019-12-27 06:24] LABS: Hematocrit 32 % (35-47); Hemoglobin 11.4 g/dL (12.0-16.0); Mean Corpuscular HGB Conc 36 g/dL (31-36); Mean Corpuscular Hemoglobin 30 pg (27-31); Mean Corpuscular Volume 82 fL (80-97); Mean Platelet Volume 7.2 fL (7.4-10.4); Platelet Count 301 10^3/uL (150-450); Red Blood Count 3.86 10^6 /uL (3.70-4.87); Red Cell Distribution Width 13 % (10-15); White Blood Count 11.8 10^3/uL (3.5-10.8)
[2019-12-27 06:36] LABS: BUN/Creatinine Ratio 18.2 (8-20); Calcium 8.7 mg/dL (8.6-10.3); EGFR African American 131.1 (>60); EGFR Non-African American 108.3 (>60); Magnesium 1.9 mg/dL (1.9-2.7); Potassium 3.8 mmol/L (3.5-5.0)
[2019-12-27 07:23] LABS: Troponin I 0.05 ng/mL (<0.03)
[2019-12-27] MEDS: Mometasone/Formoter 200/5 MDI INH SCH ×2 (07:46→19:41)
[2019-12-27 08:44] LABS: ABS Basophils 0.1 10^3/ul (0-0.2); ABS Eosinophils 0.4 10^3/ul (0-0.6); ABS Lymphocytes 2.1 10^3/ul (1.0-4.8); ABS Monocytes 1.3 10^3/ul (0-0.8); ABS Neutrophils 7.9 10^3/ul (1.5-7.7); Eosinophil % 3.7 %; Lymphocyte % 18.1 %
[2019-12-27 12:30] LABS: BUN/Creatinine Ratio 15.8 (8-20); Calcium 9.2 mg/dL (8.6-10.3); EGFR African American 125.8 (>60); Potassium 3.3 mmol/L (3.5-5.0)
[2019-12-27] MEDS ORDERED: Potassium Chlor 20 meq TAB.ER PO ONE (13:08)
[2019-12-27] MEDS ORDERED: Perflutren Lipid Microsphere 3 ML VIAL ONE (15:35)
[2019-12-27 17:38] LABS: Calcium 9.3 mg/dL (8.6-10.3); Potassium 3.6 mmol/L (3.5-5.0)
[2019-12-27 17:44] LABS: BUN/Creatinine Ratio 17.4 (8-20); EGFR African American 100.9 (>60); EGFR Non-African American 83.4 (>60)
[2019-12-27 21:13] LABS: BUN/Creatinine Ratio 16.2 (8-20); Calcium 8.8 mg/dL (8.6-10.3); EGFR African American 102.6 (>60); EGFR Non-African American 84.8 (>60); Potassium 3.7 mmol/L (3.5-5.0)
[2019-12-28] MEDS: Heparin 5000 UNITS/ML 1 mL VIAL SUBCUT SCH ×3 (06:05→21:46)
[2019-12-28] MEDS: Mometasone/Formoter 200/5 MDI INH SCH ×2 (07:07→19:19)
[2019-12-28 09:38] LABS: BUN/Creatinine Ratio 14.3 (8-20); Calcium 8.7 mg/dL (8.6-10.3); EGFR African American 112.1 (>60); EGFR Non-African American 92.6 (>60); Potassium 3.6 mmol/L (3.5-5.0)
[2019-12-28] MEDS: NS 0.9% 1000 ml BAG 1,000 ML IV SCH (10:27)
[2019-12-28] MEDS: HYDROcodone/ACETAMIN 5/325 mg TAB PO PRN ×2 (16:52→21:44)
[2019-12-29] MEDS: Heparin 5000 UNITS/ML 1 mL VIAL SUBCUT SCH ×3 (06:24→21:10)
[2019-12-29 06:46] LABS: Calcium 8.7 mg/dL (8.6-10.3); Magnesium 1.7 mg/dL (1.9-2.7); Potassium 3.6 mmol/L (3.5-5.0)
[2019-12-29 06:51] LABS: BUN/Creatinine Ratio 12.1 (8-20); EGFR African American 123.3 (>60); EGFR Non-African American 101.9 (>60)
[2019-12-29] MEDS: Mometasone/Formoter 200/5 MDI INH SCH ×2 (07:38→18:59)
[2019-12-29] MEDS: HYDROcodone/ACETAMIN 5/325 mg TAB PO PRN ×2 (08:55→21:10)
[2019-12-30] MEDS: Heparin 5000 UNITS/ML 1 mL VIAL SUBCUT SCH (05:49)
[2019-12-30 06:56] LABS: BUN/Creatinine Ratio 14.9 (8-20); Calcium 8.7 mg/dL (8.6-10.3); EGFR African American 104.4 (>60); EGFR Non-African American 86.3 (>60); Potassium 3.7 mmol/L (3.5-5.0)
[2019-12-30 07:18] VITALS: BP 151/71
[2019-12-30] MEDS: Mometasone/Formoter 200/5 MDI INH SCH (07:36)
== END 2019-12-30 10:10 | disposition home health service (06) ==
LOC: ED 17:20 → ICU 23:29 → MED 12-27 16:57
PROVIDERS: ADMIT Pediatrics; ATTEND Internal Medicine

== ENCOUNTER 2020-01-17 14:34 | Observation (INO) ==
[2020-01-17] MEDS ORDERED: Labetalol IV 5 MG/ML 20 ml VIAL IV PUSH ONE (14:52)
[2020-01-17 16:47] LABS: ABS Basophils 0.1 10^3/ul (0-0.2); ABS Eosinophils 0.4 10^3/ul (0-0.6); ABS Lymphocytes 2.1 10^3/ul (1.0-4.8); ABS Monocytes 0.8 10^3/ul (0-0.8); ABS Neutrophils 5.2 10^3/ul (1.5-7.7); Eosinophil % 4.9 %; Hematocrit 34 % (35-47); Hemoglobin 11.4 g/dL (12.0-16.0); Lymphocyte % 24.6 %; Mean Corpuscular HGB Conc 33 g/dL (31-36); Mean Corpuscular Hemoglobin 29 pg (27-31); Mean Corpuscular Volume 86 fL (80-97); Mean Platelet Volume 7.6 fL (7.4-10.4); Platelet Count 255 10^3/uL (150-450); Red Blood Count 3.98 10^6 /uL (3.70-4.87); Red Cell Distribution Width 14 % (10-15); White Blood Count 8.6 10^3/uL (3.5-10.8)
[2020-01-17 16:58] LABS: BUN/Creatinine Ratio 8.7 (8-20); Blood Urea Nitrogen 8 mg/dL (6-24); CO2 Carbon Dioxide 32 mmol/L (22-32); Calcium 9.2 mg/dL (8.6-10.3); Chloride 91 mmol/L (101-111); EGFR African American 72.4 (>60); EGFR Non-African American 59.8 (>60); Glucose 110 mg/dL (70-100); Sodium 128 mmol/L (135-145)
[2020-01-17 16:59] LABS: ALT 18 U/L (7-52); Albumin/Globulin Ratio 1.3 (1-3); Alkaline Phosphatase 55 U/L (34-104)
[2020-01-17 17:00] LABS: Troponin I 0.01 ng/mL (<0.03)
[2020-01-17] MEDS ORDERED: Furosemide 40 mg/4 ml IV VIAL IV SLOW PU ONE (17:21)
[2020-01-17 18:06] LABS: Anion Gap 5 mmol/L (2-11)
[2020-01-17] MEDS ORDERED: HYDROcodone/ACETAMIN 5/325 mg TAB PO PRN ×2 (18:20→18:21)
[2020-01-17] MEDS: Enoxaparin 40 MG/0.4 ML SYR SUBCUT SCH (21:29)
[2020-01-18] MEDS: Mometasone/Formoter 200/5 MDI INH SCH ×3 (02:02→19:58)
[2020-01-18 06:31] LABS: ABS Basophils 0.1 10^3/ul (0-0.2); ABS Eosinophils 0.4 10^3/ul (0-0.6); ABS Lymphocytes 2.1 10^3/ul (1.0-4.8); ABS Monocytes 0.8 10^3/ul (0-0.8); ABS Neutrophils 4.5 10^3/ul (1.5-7.7); Eosinophil % 5.5 %; Hematocrit 34 % (35-47); Hemoglobin 11.2 g/dL (12.0-16.0); Mean Corpuscular HGB Conc 33 g/dL (31-36); Mean Corpuscular Hemoglobin 28 pg (27-31); Mean Corpuscular Volume 86 fL (80-97); Mean Platelet Volume 7.3 fL (7.4-10.4); Platelet Count 267 10^3/uL (150-450); Red Blood Count 3.93 10^6 /uL (3.70-4.87); Red Cell Distribution Width 14 % (10-15); White Blood Count 7.9 10^3/uL (3.5-10.8)
[2020-01-18 06:49] LABS: BUN/Creatinine Ratio 9.1 (8-20); Calcium 9.3 mg/dL (8.6-10.3); EGFR African American 76.2 (>60); Potassium 3.7 mmol/L (3.5-5.0)
[2020-01-18] MEDS: Fluticasone NASAL SPRAY 50MCG 16 gm SPRAY BTL INTRANASAL SCH (07:42)
[2020-01-18 07:45] LABS: Hepatitis C Antibody Negative (Negative)
[2020-01-18] MEDS: Enoxaparin 40 MG/0.4 ML SYR SUBCUT SCH (19:32)
[2020-01-18] MEDS ORDERED: Polyethylene Glycol 3350 17 GM PACKET PO SCH (21:00)
[2020-01-19] MEDS: Mometasone/Formoter 200/5 MDI INH SCH (08:30)
[2020-01-19] MEDS ORDERED: Senna TAB 8.6 mg TAB PO SCH (09:00)
[2020-01-19] MEDS: Fluticasone NASAL SPRAY 50MCG 16 gm SPRAY BTL INTRANASAL SCH (09:57)
[2020-01-19 13:16] VITALS: BP 140/56
== END 2020-01-19 14:30 | disposition home or self-care (01) ==
LOC: ED 14:34 → MEDTELE 14:34
PROVIDERS: ADMIT Student in an Organized Health Care Education/Training Program; ATTEND Internal Medicine

== ENCOUNTER 2021-04-09 15:01 | Inpatient (IN) ==
[2021-04-09] MEDS ORDERED: Albuterol/Ipratropium NEB.SOL (2.5/0.5 MG) 3 ML NEB.SOLN INH ONE (18:57)
[2021-04-09 19:24] LABS: ABS Basophils 0.1 10^3/ul (0-0.2); ABS Eosinophils 0.4 10^3/ul (0-0.6); ABS Lymphocytes 1.5 10^3/ul (1.0-4.8); ABS Monocytes 1.2 10^3/ul (0-0.8); ABS Neutrophils 7.8 10^3/ul (1.5-7.7); Eosinophil % 3.7 %; Hematocrit 33 % (35-47); Lymphocyte % 13.7 %; Mean Corpuscular HGB Conc 34 g/dL (31-36); Mean Corpuscular Hemoglobin 29 pg (27-31); Mean Corpuscular Volume 85 fL (80-97); Mean Platelet Volume 7.1 fL (7.4-10.4); Platelet Count 329 10^3/uL (150-450); Red Blood Count 3.84 10^6 /uL (3.70-4.87); Red Cell Distribution Width 13 % (10-15); White Blood Count 11.1 10^3/uL (3.5-10.8)
[2021-04-09 19:49] LABS: Rapid COVID-19 Molecular Undetected (Undetected)
[2021-04-09 20:04] LABS: Albumin 3.6 g/dL (3.2-5.2); Albumin/Globulin Ratio 0.9 (1-3); Globulin 3.8 g/dL (2-4); Magnesium 1.8 mg/dL (1.9-2.7); Potassium 4.3 mmol/L (3.5-5.0); Total Bilirubin 0.6 mg/dL (0.2-1.0); Total Protein 7.4 g/dL (6.4-8.9); eGFR CKD-EPI 26.2 (>60)
[2021-04-09] MEDS ORDERED: Furosemide 40 mg/4 ml IV VIAL IV ONE (21:23)
[2021-04-09 22:46] LABS: Urine Appearance Clear; Urine Bilirubin Negative (Negative); Urine Blood Negative (Negative); Urine Color Straw; Urine Glucose Negative (Negative); Urine Ketones Negative (Negative); Urine Nitrite Negative (Negative); Urine Protein Negative (Negative); Urine Specific Gravity 1.003 (1.002-1.030); Urine Urobilinogen Negative (Negative)
[2021-04-09 23:33] LABS: Influenza A Molecular Negative (Negative); Influenza B Molecular Negative (Negative)
[2021-04-09 23:53] LABS: Rapid COVID-19 Molecular Undetected (Undetected)
[2021-04-10] MEDS ORDERED: Furosemide 40 mg/4 ml IV VIAL IV SLOW PU ONE (00:31)
[2021-04-10] MEDS ORDERED: Albuterol HFA INHALER 8 gm MDI INH PRN (00:43)
[2021-04-10] MEDS: Enoxaparin 30 MG/0.3 ML SYR SUBCUT SCH ×2 (01:00→21:34)
[2021-04-10] MEDS ORDERED: cefTRIAXone 1 gm/50 mL NS BAG 1 GM/50 ML BAG ONE (01:04)
[2021-04-10] MEDS: cefTRIAXone 1 gm/50 mL NS BAG 1 GM/50 ML BAG IVPB SCH (01:09)
[2021-04-10 02:47] LABS: Osmolality Serum 266 mOsm/kg (275-295)
[2021-04-10 02:48] LABS: Urine Osmo 129 mOsm/kg (150-1150)
[2021-04-10] MEDS ORDERED: hydrALAZINE 20 mg/ml 1 ML Vial IV IV SLOW PU ONE (05:32)
[2021-04-10] MEDS ORDERED: Mometasone/Formoter 200/5 MDI INH SCH (07:00)
[2021-04-10] MEDS ORDERED: Bumetanide IV 0.25 MG/ML 4 ml VIAL (1 mg) SLOW PUSH SCH (07:00)
[2021-04-10] MEDS: Bumetanide IV 0.25 MG/ML 4 ml VIAL (1 mg) SLOW PUSH SCH (09:16)
[2021-04-10] MEDS: Aspirin EC 81 mg TAB.EC (enteric coated) PO SCH (09:16)
[2021-04-10 10:01] LABS: Blood Urea Nitrogen 26 mg/dL (6-24); CO2 Carbon Dioxide 28 mmol/L (22-32); Calcium 9.1 mg/dL (8.6-10.3); Chloride 86 mmol/L (101-111); Glucose 102 mg/dL (70-100); Sodium 124 mmol/L (135-145); eGFR CKD-EPI 28.4 (>60)
[2021-04-10 10:36] LABS: Anion Gap 10 mmol/L (2-11)
[2021-04-10 14:23] LABS: Potassium 4.3 mmol/L (3.5-5.0)
[2021-04-10 14:24] LABS: Calcium 9.3 mg/dL (8.6-10.3); Magnesium 1.7 mg/dL (1.9-2.7); eGFR CKD-EPI 30.2 (>60)
[2021-04-10] MEDS ORDERED: Magnesium Sulfate 2 gm BAG 2 GM/50 ML BAG IVPB ONE (14:37)
[2021-04-10] MEDS: Mometasone/Formoter 200/5 MDI INH SCH (19:47)
[2021-04-11] MEDS: cefTRIAXone 1 gm/50 mL NS BAG 1 GM/50 ML BAG IVPB SCH (01:37)
[2021-04-11] MEDS: Bumetanide IV 0.25 MG/ML 4 ml VIAL (1 mg) SLOW PUSH SCH ×2 (03:16→05:42)
[2021-04-11] MEDS: Mometasone/Formoter 200/5 MDI INH SCH ×2 (08:42→19:42)
[2021-04-11] MEDS: Aspirin EC 81 mg TAB.EC (enteric coated) PO SCH (09:03)
[2021-04-11 09:56] LABS: ABS Basophils 0.1 10^3/ul (0-0.2); ABS Eosinophils 0.6 10^3/ul (0-0.6); ABS Lymphocytes 1.4 10^3/ul (1.0-4.8); ABS Monocytes 1.3 10^3/ul (0-0.8); Eosinophil % 6.2 %; Hematocrit 33 % (35-47); Lymphocyte % 13.6 %; Mean Corpuscular HGB Conc 34 g/dL (31-36); Mean Corpuscular Hemoglobin 29 pg (27-31); Mean Corpuscular Volume 85 fL (80-97); Mean Platelet Volume 7.1 fL (7.4-10.4); Platelet Count 355 10^3/uL (150-450); Red Blood Count 3.85 10^6 /uL (3.70-4.87); Red Cell Distribution Width 13 % (10-15); White Blood Count 10.5 10^3/uL (3.5-10.8)
[2021-04-11] MEDS ORDERED: Magnesium Hydroxide LIQ 30 ML UDC PO PRN (10:05)
[2021-04-11] MEDS ORDERED: Senna TAB 8.6 mg TAB PO PRN (10:05)
[2021-04-11 10:13] LABS: Calcium 9.2 mg/dL (8.6-10.3); Potassium 3.5 mmol/L (3.5-5.0); eGFR CKD-EPI 37.9 (>60)
[2021-04-11] MEDS ORDERED: Furosemide 40 mg/4 ml IV VIAL IV SLOW PU ONE (13:27)
[2021-04-11] MEDS: Enoxaparin 30 MG/0.3 ML SYR SUBCUT SCH (20:29)
[2021-04-12] MEDS: cefTRIAXone 1 gm/50 mL NS BAG 1 GM/50 ML BAG IVPB SCH (01:14)
[2021-04-12 05:52] LABS: Calcium 9.3 mg/dL (8.6-10.3); Potassium 3.9 mmol/L (3.5-5.0)
[2021-04-12] MEDS: Aspirin EC 81 mg TAB.EC (enteric coated) PO SCH (07:40)
[2021-04-12] MEDS: Bumetanide IV 0.25 MG/ML 4 ml VIAL (1 mg) SLOW PUSH SCH ×2 (10:42)
[2021-04-12] MEDS: Lidocaine PATCH 5% PATCH TRANSDERM SCH (10:43)
[2021-04-12] MEDS: Mometasone/Formoter 200/5 MDI INH SCH ×2 (10:55→19:43)
[2021-04-12] MEDS ORDERED: Bumetanide IV 0.25 MG/ML 4 ml VIAL (1 mg) SLOW PUSH ONE (15:00)
[2021-04-12] MEDS: Enoxaparin 30 MG/0.3 ML SYR SUBCUT SCH (22:24)
[2021-04-12] MEDS: Lidocaine Patch REMOVE NOTE PATCH OFF SCH (23:05)
[2021-04-13] MEDS: cefTRIAXone 1 gm/50 mL NS BAG 1 GM/50 ML BAG IVPB SCH (01:05)
[2021-04-13 05:49] LABS: Calcium 8.8 mg/dL (8.6-10.3); Magnesium 1.4 mg/dL (1.9-2.7); Potassium 3.8 mmol/L (3.5-5.0)
[2021-04-13] MEDS: Mometasone/Formoter 200/5 MDI INH SCH ×2 (08:12→19:16)
[2021-04-13] MEDS ORDERED: Magnesium Sulfate 2 gm BAG 2 GM/50 ML BAG IVPB ONE (08:25)
[2021-04-13] MEDS: Aspirin EC 81 mg TAB.EC (enteric coated) PO SCH (11:12)
[2021-04-13] MEDS ORDERED: Enoxaparin 40 MG/0.4 ML SYR SUBCUT SCH (21:00)
[2021-04-13] MEDS: Lidocaine PATCH 5% PATCH TRANSDERM SCH (21:30)
[2021-04-13] MEDS: Lidocaine Patch REMOVE NOTE PATCH OFF SCH (21:31)
[2021-04-14] MEDS: cefTRIAXone 1 gm/50 mL NS BAG 1 GM/50 ML BAG IVPB SCH (01:17)
[2021-04-14 06:25] LABS: Calcium 8.9 mg/dL (8.6-10.3); Magnesium 1.6 mg/dL (1.9-2.7); Potassium 3.9 mmol/L (3.5-5.0); eGFR CKD-EPI 73.9 (>60)
[2021-04-14] MEDS: Mometasone/Formoter 200/5 MDI INH SCH (07:44)
[2021-04-14] MEDS: Aspirin EC 81 mg TAB.EC (enteric coated) PO SCH (08:16)
[2021-04-14] MEDS: Lidocaine PATCH 5% PATCH TRANSDERM SCH (08:17)
[2021-04-14 12:38] VITALS: BP 152/67
== END 2021-04-14 15:55 | disposition home or self-care (01) | DRG 291 ==
LOC: ED 15:01 → EDHOLD 04-10 00:27 → MED 04-10 12:01
PROVIDERS: ADMIT Hospitalist; ATTEND Hospitalist